=== PATIENT | male | born 1950 | race Caucasian/White ===

== ENCOUNTER 2017-04-18 18:10 | Inpatient (IN) ==
[2017-04-18] MEDS ORDERED: Furosemide 40 MG/4 ML VIAL IVP ONE (18:33)
--- NOTE | 2017-04-18 18:36 | Emergency Department Note ---
Disposition Clinical Impression: CHF (congestive heart failure) Qualifiers: Congestive heart failure type: unspecified congestive heart failure type Congestive heart failure chronicity: acute Qualified Code(s): I50.9 - Heart failure, unspecified Atrial fibrillation Qualifiers: Atrial fibrillation type: chronic Qualified Code(s): I48.2 - Chronic atrial fibrillation Disposition: Admitted As Inpatient Condition: Fair [facility]errals: [facility] [Primary Care Provider] - Forms: ED Satisfaction Letter Time of Disposition: 19:43 SOB HPI - General Chief Complaint: ED Arrhythmia/Palpitations Stated Complaint: afib Time Seen by Provider: 04/18/17 18:17 Source: EMS Mode of arrival: EMS Limitations: no limitations Nursing Notes Reviewed: Yes Vital Signs Reviewed: Yes - History of Present Illness 66-year-old male with a history of CHF and A. fib comes in from the [facility] with increasing shortness of breath. States he feels like his CHF is worsen. Patient was seen at the [facility] troponin was negative his BNP was elevated they do not send results for chest x-ray. Pt Subjective Complaint: shortness of breath Onset (ago): hour(s) Severity: moderate Consistency/Duration: constant Improves with: nothing Worsens with: exertion Known history of: congestive heart failure Associated symptoms: Denies: chest pain Treatment prior to arrival: oxygen - Related Data Home Medications Medication Instructions Recorded Confirmed Omeprazole [PriLOSEC] 20 mg PO BID #0 02/15/15 04/18/17 Clopidogrel [Plavix] 75 mg PO QAM 03/01/15 04/18/17 Insulin ASPART [NovoLOG] 22 unit SQ TIDAC 03/01/15 04/18/17 Insulin Glargine,Hum.rec.anlog 55 unit SQ BID 03/01/15 04/18/17 [Lantus Solostar] Nitroglycerin [Nitrostat] 0.4 mg SL AD PRN 03/01/15 04/18/17 Albuterol Sulfate [Albuterol 2 puff IH QID PRN 01/26/16 04/18/17 Inhaler] Dextrose [Glucose] 12 gm PO DAILY PRN 01/26/16 04/18/17 Fluticasone Propionate Nasal 50 mcg NS DAILY PRN 01/26/16 04/18/17 [Flonase] Gemfibrozil [Lopid] 600 mg PO BID 01/26/16 04/18/17 Lisinopril [Zestril] 10 mg PO BID 01/26/16 04/18/17 Loratadine [Claritin] 10 mg PO DAILY 01/26/16 04/18/17 Metformin HCl [Glucophage] 1,000 mg PO QPM 01/26/16 04/18/17 Metformin HCl [Glucophage] 1,500 mg PO QAM 01/26/16 04/18/17 Metoprolol [Lopressor] 100 mg PO BID 01/26/16 04/18/17 [place]-3 Acid Ethyl Esters [Lovaza] 1 gm PO DAILY 01/26/16 04/18/17 Potassium Chloride [K-Tab ER] 10 meq PO DAILY 01/26/16 04/18/17 Sodium Chloride [Rhinaris] 2 spray NS TID PRN 01/26/16 04/18/17 Budesonide/Formoterol 160/4.5 2 puff IH BID 04/18/17 04/18/17 [Symbicort 160/4.5] Bumetanide [Bumex] 1 mg PO DAILY 04/18/17 04/18/17 Spironolactone [Aldactone] 50 mg PO DAILY 04/18/17 04/18/17 Previous Rx's Medication Instructions Recorded Albuterol Neb [AccuNeb] 1.25 mg IH Q4H PRN 30 Days inhsol 01/29/16 Allergies Allergy/AdvReac Type Severity Reaction Status Date / Time acetaminophen Allergy See Verified 02/15/15 01:08 [From Tylenol-Codeine] Comments codeine Allergy See Verified 02/15/15 01:08 [From Tylenol-Codeine] Comments iodine Allergy Vomiting Verified 02/15/15 01:08 Nortriptyline Allergy See Verified 02/15/15 01:08 Comments shellfish derived Allergy Vomiting Verified 02/15/15 01:08 Constitutional: Denies: fever, chills, weakness, weight change Eyes: Denies: eye pain, eye discharge, vision change ENT ED: Denies: ear pain, throat pain, dental pain, hearing loss, epistaxis, congestion, dysphagia Cardiovascular: Denies: chest pain, palpitations, dyspnea on exertion, edema, syncope Respiratory: Reports: dyspnea. Denies: cough, wheezes, hemoptysis, stridor Gastrointestinal: Denies: abdominal pain, nausea, vomiting, diarrhea, constipation, hematemesis, melena, hematochezia Genitourinary: Denies: urgency, dysuria, frequency, hematuria Musculoskeletal: Denies: back pain, neck pain, arthralgia, myalgia Integumentary: Denies: rash, abrasion, lesions Neurological: Denies: headache, weakness, numbness, paresthesias, confusion, abnormal gait, vertigo Psychiatric: Denies: anxiety, depression, suicidal thoughts, homicidal thoughts , auditory hallucinations, visual hallucinations Endocrine: Denies: fatigue Hematological/Lymphatic: Denies: easy bleeding, easy bruising Allergic/Immunologic: Denies: facial swelling, urticaria Past Medical History - Past Medical History Medical history: Reports: atrial fibrillation, CHF, COPD, coronary artery disease, DVT, diabetes, GERD, hyperlipidemia, hypertension, myocardial infarction Surgical history: Reports: coronary bypass (CABG), other Psychiatric history: Reports: PTSD - Social History Smoking Status: Current some day smoker Smokeless Tobacco Status: No Alcohol use: Reports: none Drug use: Reports: none Physical Exam - General Limitations: no limitations General appearance: alert - Head Head exam: atraumatic, normocephalic, normal inspection - Eye Eye exam: Present: normal appearance, PERRL, EOMI - ENT ENT exam: normal exam, normal oropharynx, mucous membranes moist - Neck Neck exam: Present: normal inspection, full ROM, trachea midline - Chest Chest inspection: Present: normal inspection, symmetric chest wall rise - Respiratory Respiratory exam: Present: prolonged expiratory phase - Cardiovascular Cardiovascular exam: Present: regular rate, normal rhythm, normal heart sounds - Abdominal Exam Abdominal exam: Present: soft, Non-Tender. Absent: tenderness, distention, guarding, rebound, rigidity - Extremities Exam Extremities exam: Present: normal inspection, full ROM. Absent: tenderness, pedal edema - Expanded Lower Extremity Exam Neurovascular/Tendon exam: Absent: motor deficit, sensory deficit, tendon deficit Gait: observed and normal - Back Exam Back exam: Present: normal inspection, full ROM. Absent: tenderness - Neurological Exam Neurological exam: Present: alert, oriented X3 - Psychiatric Psychiatric exam: Present: normal affect, normal mood - Skin Skin exam: Present: warm, dry, intact, normal color Course - Reevaluation(s) Reevaluation #1: 66-year-old with history CHF comes in with increasing weight shortness of breath consistent with his previous CHF. Also has a history of A. fib. Workup at the [facility] showed a normal troponin and elevated BNP. Patient was given Lasix and will be admitted for further evaluation and treatment. Time: 19:41 - Consultations Consultation #1: Discussed with , admit. Time: 19:43 Vital Signs Temperature 97.8 F 04/18/17 18:16 Pulse Rate 110 04/18/17 18:16 Respiratory Rate 11 04/18/17 18:16 Blood Pressure 136/93 04/18/17 18:16 O2 Sat by Pulse Oximetry 97 04/18/17 18:16 Temperature 97.8 F 04/18/17 18:16 Pulse Rate 110 04/18/17 18:16 Respiratory Rate 11 04/18/17 18:16 Blood Pressure 136/93 04/18/17 18:16 O2 Sat by Pulse Oximetry 97 04/18/17 18:16 Oxygen Delivery Oxygen Delivery Room Air Shortness of Breath/Dyspnea - EKG Data EKG attestation: Yes I reviewed and interpreted this EKG. Rate: Reports: tachycardia Rhythm: Reports: A.Fib Interpretation: Reports: no acute changes
[2017-04-18] MEDS ORDERED: *HR* Dextrose 50 % in Water (Syg) 50 ML SYRINGE IVP PRN (22:27)
[2017-04-18] MEDS ORDERED: D5% in Water 1,000 ML IVC PRN (22:27)
[2017-04-18] MEDS ORDERED: Dextrose Gel 15 GM PO PRN ×2 (22:27)
[2017-04-18] MEDS ORDERED: Insulin DETEMIR 100 UNIT/ML X5UNITS SQ SCH (22:30)
[2017-04-18] MEDS ORDERED: *HR* Metoprolol 5 MG/5 ML VIAL IVP ONE (23:03)
[2017-04-18] MEDS ORDERED: *HR* Morphine 2 MG/ML SYRINGE IVP PRN (23:36)
[2017-04-18] MEDS ORDERED: Naloxone 0.4 MG/ML INJ IVP PRN (23:36)
[2017-04-18] MEDS ORDERED: Nitroglycerin 0.4 MG TAB.SUBL SL PRN (23:41)
[2017-04-18] MEDS ORDERED: Fluticasone Propionate Nasal 50 MCG/SPRAY BOTTLE NS PRN (23:41)
[2017-04-18] MEDS ORDERED: Albuterol Neb 1.25 MG/3 ML VIAL IH PRN (23:41)
--- NOTE | 2017-04-19 00:04 | Internal Med History&Physical ---
Date of Encounter: 04/18/17 Time of Encounter: 22:45 Assessment and Plan (1) Chest pain Current visit: No Status: Acute 1. Symptoms are vague but very similar to his presentation last month leading to PCI/stents. 2. Will cycle troponins, EKG's, and order ECHO. 3. Will try to obtain old records. 4. Consult cardiology per his request and also for assistance in managing atrial fibrillation. Qualifiers: Chest pain type: chest pain due to myocardial ischemia Ischemic chest pain type: stable angina pectoris Qualified Code(s): I20.8 - Other forms of angina pectoris (2) CHF (congestive heart failure) Current visit: Yes Status: Chronic 1. Patient does not appear to be fluid overloaded presently. 2. He received IV lasix in ER. 3. Will continue home meds and monitor I/O, daily weights. 4. Monitor clinical status and adjust medications accordingly. Qualifiers: Congestive heart failure type: systolic Congestive heart failure chronicity : chronic Qualified Code(s): I50.22 - Chronic systolic (congestive) heart failure (3) Diabetes Current visit: No Status: Chronic 1. Will resume home basal insulin dose and SSI. 2. Hold Metformin. 3. Monitor glucose and adjust insulin accordingly. Qualifiers: Diabetes mellitus type: type 2 Diabetes mellitus complication status: without complication Diabetes mellitus longterm insulin use: with assistant terminal manager use Qualified Code(s): E11.9 - Type 2 diabetes mellitus without complications ; Z79.4 - senior living (current) use of insulin (4) Atrial fibrillation with rapid ventricular response Current visit: No Status: Resolved 1. IV Lopressor given upon my assessment. 2. Resume home meds this evening. 3. Monitor HR and consider starting Cardizem drip if HR does not improve with above measures. 4. Will order metabolic panel, cycle troponins, and EKG's. 5. Check TSH. (5) DVT prophylaxis Current visit: No Status: Acute 1. Heparin SQ. Internal Medicine - H&P: HPI Chief complaint: SOB, palpitations, chest tightness Admitted From: Emergency Dept History of present illness: Mr. Medel is a 66 year old male who presented in transfer from the [facility] to our ER. He presented to the [place] urgent care with complaints of chest tightness, shortness of breath, weight gain, and palpitations. He was felt to be in congestive heart failure and he was subsequently transferred to our ER for further workup and care. Labs were drawn at the [place], but I am unable to find and locate his lab results. He had minimal workup and treatment in our ER and was admitted to hospitalist service. Chest x-ray was obtained in the ER, which was negative for any acute findings. He was given a dose of Lasix in the ER and sent to the floor. Upon my assessment patient on the floor, patient is tachycardic with a heart rate of 110 - 130's and appears to be in atrial fibrillation. He complains of some vague chest tightness but mostly shortness of breath. He notes weight gain over the last 2 weeks. He denies any fevers, cough, nausea, vomiting, or diarrhea. He informs me that he was just hospitalized roughly 1 month ago at [facility] in [place], [place], and he underwent PCI with stents. His symptoms today are similar to those he had last month when he was hospitalized at [facility]. Past Med Surg Social Fam HX - Past Medical History Attestation: Yes The following information was validated with the patient. Source: patient, old records reviewed Medical history: atrial fibrillation, CHF, COPD, coronary artery disease, DVT, diabetes, GERD, hyperlipidemia, hypertension, myocardial infarction Psychiatric history: anxiety, PTSD - Past Surgical History Surgical History: coronary bypass (CABG), other - Social History Smoking Status: Current some day smoker Smokeless Tobacco Status: No Alcohol use: none Drug use: none Current living situation: Home, With Family Activity Level: Independent ambulation Recent Out of Country Travel Within the Last 8 Weeks: No - Family History Mother Adopted: [place]: [place] Family Member Ethnicity: Non- Twin of Family Member: Yes Living Status: Age at : 33 Cause of : brain anureysm Hx Family Cardiac Disorders: No Hx Family Respiratory Disorders: No Hx Family Cancer: Yes Hx Family GI Disorders: No Hx Family Endocrine Disorder: No Hx Family Neuromuscular Disorders: No Hx Family Neurologic Disorders: No Hx Family HEENT Disorders: Yes Hx Family Autoimmune Disorders: No Internal Medicine - H&P: Meds Omeprazole [PriLOSEC] 20 mg PO BID #0 02/15/15 [History] Clopidogrel [Plavix] 75 mg PO QAM 03/01/15 [History] Insulin ASPART [NovoLOG] 22 unit SQ TIDAC 03/01/15 [History] Insulin Glargine,Hum.rec.anlog [Lantus Solostar] 55 unit SQ BID 03/01/15 [ History] Nitroglycerin [Nitrostat] 0.4 mg SL AD PRN 03/01/15 [History] Albuterol Sulfate [Albuterol Inhaler] 2 puff IH QID PRN 01/26/16 [History] Dextrose [Glucose] 12 gm PO DAILY PRN 01/26/16 [History] Fluticasone Propionate Nasal [Flonase] 50 mcg NS DAILY PRN 01/26/16 [History] Gemfibrozil [Lopid] 600 mg PO BID 01/26/16 [History] Lisinopril [Zestril] 10 mg PO BID 01/26/16 [History] Loratadine [Claritin] 10 mg PO DAILY 01/26/16 [History] Metformin HCl [Glucophage] 1,000 mg PO QPM 01/26/16 [History] Metformin HCl [Glucophage] 1,500 mg PO QAM 01/26/16 [History] Metoprolol [Lopressor] 100 mg PO BID 01/26/16 [History] [place]-3 Acid Ethyl Esters [Lovaza] 1 gm PO DAILY 01/26/16 [History] Potassium Chloride [K-Tab ER] 10 meq PO DAILY 01/26/16 [History] Sodium Chloride [Rhinaris] 2 spray NS TID PRN 01/26/16 [History] Albuterol Neb [AccuNeb] 1.25 mg IH Q4H PRN 30 Days inhsol 01/29/16 [Rx] Budesonide/Formoterol 160/4.5 [Symbicort 160/4.5] 2 puff IH BID 04/18/17 [ History] Bumetanide [Bumex] 1 mg PO DAILY 04/18/17 [History] Spironolactone [Aldactone] 50 mg PO DAILY 04/18/17 [History] 3 Allergy/AdvReac Type Severity Reaction Status Date / Time acetaminophen Allergy See Verified 02/15/15 01:08 [From Tylenol-Codeine] Comments codeine Allergy See Verified 02/15/15 01:08 [From Tylenol-Codeine] Comments iodine Allergy Vomiting Verified 02/15/15 01:08 Nortriptyline Allergy See Verified 02/15/15 01:08 Comments shellfish derived Allergy Vomiting Verified 02/15/15 01:08 - Constitutional Constitutional: weakness, weight gain, no chills, no fever(s) - EENT Eyes: no blurry vision, no change in vision Ears: no ear pain, no tinnitus Nose, mouth and throat: no nasal congestion, no sinus pain, no sinus pressure - Cardiovascular Cardiovascular ROS IM: chest pain (tightness), dyspnea, dyspnea on exertion, edema, orthopnea, palpitations, paroxysmal nocturnal dyspnea, no lightheadedness , no syncope - Respiratory Respiratory: dyspnea, dyspnea on exertion, no cough, no hemoptysis, no chest congestion, no excessive phlegm production, no change in phlegm color - Gastrointestinal Gastrointestinal: bloating, no abdominal pain, no diarrhea, no hematemesis, no hematochezia, no melena, no nausea, no vomiting - Genitourinary Genitourinary ROS male: no dysuria, no flank pain, no hematuria - Musculoskeletal Musculoskeletal ROS IM: no arthralgias, no back pain - Integumentary Integumentary IM: no rash, no jaundice - Neurological Neurological ROS: no dizziness, no focal weakness, no frequent falls, no headache(s) - Psychiatric Psychiatric: no anxiety, no depression - Endocrine Endocrine IM: no cold intolerance, no heat intolerance, no polydipsia, no polyuria - Hematologic/Lymphatic Hematologic/Lymphatic: no lymphadenopathy - Allergic/Immunologic Allergic/Immunologic: no wheezing, no GI upset with certain foods - Constitutional Vitals: Temp Pulse Resp BP Pulse Ox 97.8 F 93 16 119/70 97 04/18/17 23:30 04/18/17 23:30 04/18/17 23:30 04/18/17 23:30 04/18/17 23:30 General appearance: Present: cooperative, mild distress, A&O X 3, pleasant, answers questions appropriately - Head Head exam: Present: atraumatic, normal inspection - Eye Eye exam: Present: EOMI, normal appearance, PERRL. Absent: scleral icterus Pupils: Present: normal accommodation - ENT ENT exam: Present: mucous membranes moist, normal exam, normal oropharynx - Neck Neck exam general surgery: Present: full ROM, supple. Absent: tenderness, nuchal rigidity - Expanded Neck Exam Neck exam: Absent: carotid bruit - Respiratory Respiratory exam: Present: rhonchi. Absent: accessory muscle use, chest wall tenderness, rales, respiratory distress, wheezes - Cardiovascular Cardiovascular exam: Present: irregular rhythm, +S1, +S2, tachycardia. Absent: diastolic murmur, JVD, systolic murmur - GI/Abdominal GI/Abdominal exam: Present: normal bowel sounds, soft. Absent: guarding, hepatomegaly, mass, splenomegaly, tenderness - Extremities Exam Extremities exam: Present: full ROM, pedal edema (trace), warm. Absent: calf tenderness, joint swelling, tenderness Additional comments: venous stasis changes - Back Exam Back exam: Absent: CVA tenderness (L), CVA tenderness (R) - Neurological Exam Neurological exam: Present: alert, CN II-XII intact, oriented X3, no focal deficits - Psychiatric Psychiatric exam: Present: normal affect, normal mood - Skin Skin exam: Present: dry, warm. Absent: rash Internal Med - H&P Results - EKG Data -: EKG Interpreted by Myself - EKG Data Prior EKG available for review: no EKG comments: 04/19/17 00:10 atrial fibrillation w RVR - Diagnostic Studies Chest x-ray Status: image reviewed by me (negative; cardiomegaly)
[2017-04-19 01:03] LABS: Basophils # 0.1 K/mcL (0.0-0.2); Basophils % 0.5 %; Eosinophils # 0.1 K/mcL (0.0-0.6); Eosinophils % 0.6 %; Hematocrit 41.7 % (37.5-50.1); Hemoglobin 13.9 g/dL (12.9-16.9); Immature Granulocytes % 2.1 % (0-4); Lymphocytes # 2.6 K/mcL (0.6-4.6); Lymphocytes % 20.3 %; Mean Corpuscular HGB Conc 33.3 g/dL (31.6-35.5); Mean Corpuscular Hemoglobin 31.7 pg (28.0-33.3); Mean Platelet Volume 9.3 fL (9.4-12.4); Monocytes % 7.7 %; Neutrophils # 8.9 K/mcL (1.6-8.9); Platelet Count 188 K/mcL (140-400); Red Blood Count 4.39 M/mcL (4.19-5.50); Red Cell Distribution Width 14.7 % (11.5-14.5); Segmented Neutrophils % 68.8 %
[2017-04-19 01:07] LABS: INR 1.2; Prothrombin Time 12.6 Seconds (9.4-12.1)
[2017-04-19 01:09] LABS: Activated Partial Thrombo Time 26.5 Seconds (26.0-36.0)
[2017-04-19 01:14] LABS: Alanine Aminotransferase 16 Units/L (0-55); Albumin 2.8 g/dL (3.5-5.0); Albumin/Globulin Ratio 0.7 (1.1-2.2); Alkaline Phosphatase 61 Units/L (38-126); Aspartate Amino Transferase 13 Units/L (5-34); BUN/Creatinine Ratio 16 (6-26); Bilirubin,Total 0.5 mg/dL (0.2-1.2); Blood Urea Nitrogen 18 mg/dL (8-26); Calcium 9.4 mg/dL (8.6-10.8); Carbon Dioxide 27 mEq/L (19-29); Chloride 97 mEq/L (98-109); Globulin 3.8 g/dL (2.4-3.5); Glucose 261 mg/dL (70-99); Magnesium 1.6 mg/dL (1.6-2.6); Osmolality,Calculated 291 (280-300); Potassium 4.5 mEq/L (3.5-4.5); Sodium 135 mEq/L (136-145); Total Protein 6.6 g/dL (6.0-8.3); eGFR For African Americans > 60 (> 60); eGFR For Non-African Americans > 60 (> 60)
[2017-04-19 01:35] LABS: Thyroid Stimulating Hormone 0.726 mcIU/mL (0.350-4.840)
[2017-04-19] MEDS: Metoprolol 100 MG TABLET PO SCH ×3 (02:05→21:47)
[2017-04-19] MEDS ORDERED: Acetaminophen 325 MG TABLET PO PRN (02:27)
[2017-04-19] MEDS ORDERED: Magnesium Sulfate 2 GM in D5% in Water 100 ML IVPB ONE (02:51)
[2017-04-19] MEDS: *HR* Heparin 5,000 UNIT/ML VIAL SQ SCH ×2 (06:07→16:06)
[2017-04-19] MEDS ORDERED: Perflutren Lipid Microsphere 1.3 ML in 0.9 % Sodium Chloride 8.7 ML IVP ONE (07:55)
[2017-04-19] MEDS: Insulin LISPRO 300 UNITS/3 ML VIAL SQ SCH ×6 (08:26→16:05)
[2017-04-19] MEDS: Loratadine 10 MG TABLET PO SCH (08:27)
[2017-04-19] MEDS: Spironolactone 25 MG TABLET PO SCH (08:28)
[2017-04-19] MEDS: Aspirin 81 MG TAB.CHEW PO SCH (08:28)
[2017-04-19] MEDS: LOVAZA 1GM PO SCH (08:30)
[2017-04-19] MEDS: Insulin DETEMIR 100 UNIT/ML X5UNITS SQ SCH ×2 (08:31→22:10)
[2017-04-19] MEDS ORDERED: Bumetanide 1 MG TABLET PO SCH (09:00)
--- NOTE | 2017-04-19 09:19 | Internal Med Progress Note ---
Date of Encounter: 04/19/17 Time of Encounter: 09:17 - Assessment and plan (1) COPD (chronic obstructive pulmonary disease) Current Visit: Yes Status: Acute Assessment and plan: patient some rhonchi and wheezing add duoneb Qualifiers: COPD type: emphysema Emphysema type: unspecified Qualified Code(s): J43.9 - Emphysema, unspecified (2) Chest pain Current Visit: No Status: Acute Assessment and plan: resolved troponin negative Qualifiers: Chest pain type: chest pain due to myocardial ischemia Ischemic chest pain type: stable angina pectoris Qualified Code(s): I20.8 - Other forms of angina pectoris (3) Atrial fibrillation Current Visit: Yes Status: Acute Assessment and plan: Not chronic, rate is well controlled Qualifiers: Atrial fibrillation type: chronic Qualified Code(s): I48.2 - Chronic atrial fibrillation (4) Hx of CABG Current Visit: No Status: Acute Assessment and plan: CABG 4 vessel presented 6 with a recent angioplasty to stent detail is not available yet (5) CHF (congestive heart failure) Current Visit: Yes Status: Chronic Assessment and plan: Acute on chronic systolic heart failure still has about 2-3+ pitting edema in lower extremities echo EF to be about 30-35% Qualifiers: Congestive heart failure type: systolic Congestive heart failure chronicity : chronic Qualified Code(s): I50.22 - Chronic systolic (congestive) heart failure (6) Diabetes Current Visit: No Status: Chronic Assessment and plan: chronic continue sliding scale Qualifiers: Diabetes mellitus type: type 2 Diabetes mellitus complication status: without complication Diabetes mellitus intermodal dispatcher insulin use: with chcf use Qualified Code(s): E11.9 - Type 2 diabetes mellitus without complications ; Z79.4 - termination clerk (current) use of insulin (7) Ischemic cardiomyopathy Current Visit: No Status: Acute Assessment and plan: moderate to severe cmp with decompensation (8) HLD (hyperlipidemia) Current Visit: No Status: Chronic Assessment and plan: continue home meds Qualifiers: Hyperlipidemia type: pure hypercholesterolemia Qualified Code(s): E78.00 - Pure hypercholesterolemia, unspecified; E78.0 - Pure hypercholesterolemia - Subjective Interval history: Patient with history of CABG 2005, had a angioplasty 2 stentst put in at the [facility] about 2 months ago. Also a history of congestive heart failure, diabetes, chronic atrial fib fibrillation, patient was admitted from [facility] due to chest pain described as tightness and shortness of breath and palpitation and found to be in a rapid ventricular with RVR and congestive heart failure. He says chest pain-free troponin is negative - Constitutional Vitals: Temp Pulse Resp BP Pulse Ox 97.9 F 70 15 110/72 97 04/19/17 06:31 04/19/17 06:31 04/19/17 06:31 04/19/17 06:31 04/19/17 06:31 General appearance: Present: cooperative, mild distress, A&O X 3, pleasant, answers questions appropriately - Head Head exam: Present: atraumatic, normocephalic - Eye Eye exam: Present: PERRL, conjuntiva pink, sclera anicteric Pupils: Present: PERRL - Respiratory Respiratory exam: Present: rhonchi, wheezes - Cardiovascular Cardiovascular exam: Present: irregular rhythm, +S1, +S2, systolic murmur - GI/Abdominal GI/Abdominal exam: Present: normal bowel sounds, soft, no peritoneal signs. Absent: distended, tenderness - Extremities Exam Extremities exam: Present: pedal edema Internal Medicine: Result - Labs CBC & Chem 7: 04/19/17 00:48 04/19/17 00:48 Labs: Short CBC 04/19/17 Range/Units 00:48 WBC 12.9 H (4.3-11.1) K/mcL Hgb 13.9 (12.9-16.9) g/dL Hct 41.7 (37.5-50.1) % Plt Count 188 (140-400) K/mcL Neutrophils # 8.9 (1.6-8.9) K/mcL BMP 04/19/17 00:48 Sodium 135 L Potassium 4.5 Chloride 97 L Carbon Dioxide 27 BUN 18 Creatinine 1.14 Glucose 261 H Calcium 9.4 Cardiac Enzymes 04/19/17 04/19/17 Range/Units 00:48 06:23 Troponin I 0.01 0.01 (0-0.03) ng/mL Liver Function 04/19/17 Range/Units 00:48 Total Bilirubin 0.5 (0.2-1.2) mg/dL AST 13 (5-34) Units/L ALT 16 (0-55) Units/L Alkaline Phosphatase 61 (38-126) Units/L Albumin 2.8 L (3.5-5.0) g/dL - ABG Interpretation ABG results: PT/INR, D-dimer PT 12.6 Seconds (9.4-12.1) H 04/19/17 00:48 Consult Discharge Plan - Plan [facility]errals: [facility] [Primary Care Provider] -
[2017-04-19] MEDS: Budesonide/Formoterol 160/4.5 MDI IH SCH ×2 (09:59→20:11)
--- NOTE | 2017-04-19 10:52 | Cardiology Consult Note ---
Date of Encounter: 04/19/17 Time of Encounter: 09:00 Assessment and Plan (1) Chest pain Current Visit: No Status: Acute C/o chest tightness with laying flat. Likely respiratory related. Mild fluid overload on exam. No acute finding on CXR. Known ischemic cardiomyopathy with EF 30-35%. Troponin negative. EKG shows atrial fibrillation with no acute chages. TTE pending. Continue optimizing medical therapy. Noted to have statin allergy. Continue asa , plavix, statin, and bb. Add imdur. Continue IV diuresis. Qualifiers: Chest pain type: chest pain due to myocardial ischemia Ischemic chest pain type: stable angina pectoris Qualified Code(s): I20.8 - Other forms of angina pectoris (2) Atrial fibrillation Current Visit: Yes Status: Chronic Appears to be rate controlled . Continue Lopressor. [facility] finding on brain MRI. Per patient he is scheduled to have repeat MRI of the head. Recommend follow Qualifiers: Atrial fibrillation type: permanent Qualified Code(s): I48.2 - Chronic atrial fibrillation (3) Ischemic cardiomyopathy Current Visit: No Status: Acute (4) CAD (coronary artery disease) Current Visit: No Status: Chronic H/o CABG in 2005 and multiple PCI. Recent GA and stent one month ago. Records ordered. Continue DAPT uninterrupted for minimum of one year. Qualifiers: Coronary Disease-Associated Artery/Lesion type: bypass graft, autologous vein Associated angina: without angina Qualified Code(s): I25.810 - Atherosclerosis of coronary artery bypass graft(s) without angina pectoris Discussion w patient/family: The assessment and plan as outlined above was discussed with the patient and/or family members who expressed understanding and agreement. All questions were answered. Thank you for involving us in the care of your patient. Please call with any questions. History of Present Illness Consult date: 04/19/17 Requesting physician: Contreras Rabago Consult reason: Chest pain Chief complaint: SOB and edema, chest tightness History of present illness: Mr. Medel is a 66 year old male who presented with increasing SOB, BLE edema, and chest tightness when he lays flat. Symptoms increased over past two days. He reports having similar symptoms one month ago and was found to have an GA and received two cardiac stents. [facility] completed at [facility]. He has a history of atrial fibrillation, CABG in 2005, multiple PCI, DM, valvular heart disease, and systolic CHF EF 30-35%, and COPD. He says he was taken off pradaxa due to a blockage in [facility] the [facility]. He denies missing any medications. Cardiology consulted due to recent GA and stents. Cardiac work-up shows negative troponin. EKG shows atrial fibrillation with HR 100 BPM. He is currently rate controlled on his home medications. CXR shows no acute finding. He reports his BLE edema has improved. Past Med Surg Social Fam HX - Past Medical History Attestation: Yes The following information was validated with the patient. Medical history: atrial fibrillation, CHF, COPD, coronary artery disease, DVT, diabetes, GERD, hyperlipidemia, hypertension, myocardial infarction Psychiatric history: anxiety, PTSD - Past Surgical History Surgical History: coronary bypass (CABG), other - Social History Smoking Status: Current some day smoker Smokeless Tobacco Status: No Alcohol use: none Drug use: none - Family History Mother Adopted: [place]: [place] Family Member Ethnicity: Non- Twin of Family Member: Yes Living Status: Age at : 33 Cause of : brain anureysm Hx Family Cardiac Disorders: No Hx Family Respiratory Disorders: No Hx Family Cancer: Yes Hx Family GI Disorders: No Hx Family Endocrine Disorder: No Hx Family Neuromuscular Disorders: No Hx Family Neurologic Disorders: No Hx Family HEENT Disorders: Yes Hx Family Autoimmune Disorders: No Medications and Allergies Omeprazole [PriLOSEC] 20 mg PO BID #0 02/15/15 [History] Clopidogrel [Plavix] 75 mg PO QAM 03/01/15 [History] Insulin ASPART [NovoLOG] 22 unit SQ TIDAC 03/01/15 [History] Insulin Glargine,Hum.rec.anlog [Lantus Solostar] 55 unit SQ BID 03/01/15 [ History] Nitroglycerin [Nitrostat] 0.4 mg SL AD PRN 03/01/15 [History] Albuterol Sulfate [Albuterol Inhaler] 2 puff IH QID PRN 01/26/16 [History] Dextrose [Glucose] 12 gm PO DAILY PRN 01/26/16 [History] Fluticasone Propionate Nasal [Flonase] 50 mcg NS DAILY PRN 01/26/16 [History] Gemfibrozil [Lopid] 600 mg PO BID 01/26/16 [History] Lisinopril [Zestril] 10 mg PO BID 01/26/16 [History] Loratadine [Claritin] 10 mg PO DAILY 01/26/16 [History] Metformin HCl [Glucophage] 1,000 mg PO QPM 01/26/16 [History] Metformin HCl [Glucophage] 1,500 mg PO QAM 01/26/16 [History] Metoprolol [Lopressor] 100 mg PO BID 01/26/16 [History] Coats-3 Acid Ethyl Esters [Lovaza] 1 gm PO DAILY 01/26/16 [History] Potassium Chloride [K-Tab ER] 10 meq PO DAILY 01/26/16 [History] Sodium Chloride [Rhinaris] 2 spray NS TID PRN 01/26/16 [History] Albuterol Neb [AccuNeb] 1.25 mg IH Q4H PRN 30 Days inhsol 01/29/16 [Rx] Budesonide/Formoterol 160/4.5 [Symbicort 160/4.5] 2 puff IH BID 04/18/17 [ History] Bumetanide [Bumex] 1 mg PO DAILY 04/18/17 [History] Spironolactone [Aldactone] 50 mg PO DAILY 04/18/17 [History] 3 Allergy/AdvReac Type Severity Reaction Status Date / Time acetaminophen Allergy See Verified 02/15/15 01:08 [From Tylenol-Codeine] Comments codeine Allergy See Verified 02/15/15 01:08 [From Tylenol-Codeine] Comments iodine Allergy Vomiting Verified 02/15/15 01:08 Nortriptyline Allergy See Verified 02/15/15 01:08 Comments shellfish derived Allergy Vomiting Verified 02/15/15 01:08 All Systems Review: A 10-system review of systems was performed and is negative for pertinent findings except as documented above in the HPI. Physical Examination Vital Signs Temp Pulse Resp BP Pulse Ox 04/19/17 06:31 97.9 F 70 15 110/72 97 04/19/17 05:00 97.8 F 78 17 103/67 97 04/18/17 23:30 97.8 F 93 16 119/70 97 04/18/17 21:10 98.2 F 67 17 104/68 95 04/18/17 20:44 21 138/84 04/18/17 18:16 97.8 F 110 11 136/93 97 Intake and Output 04/18/17 04/19/17 04/19/17 23:59 07:59 15:59 Intake Total 937 / 937 700 / 700 240 / 240 Output Total 0 / 0 350 / 350 Balance 937 / 937 350 / 350 240 / 240 Intake: Oral 937 / 937 700 / 700 240 / 240 Output: Urine 0 / 0 350 / 350 Other: Percent of Meal Consumed 100% Weight 96.8 kg Blood Glucose* 324 114 General: Conversant, No Apparent Distress HEENT: Atraumatic, Normocephaly, Mucus Membranes Moist Neck: No JVD, Normal carotid pulses Cardiac: Other (Irregularly irregular) Lungs: Normal Breath Sounds, No Wheeze, Rales, Rhonchi Neuro: Alert and responsive, No focal deficits noted Abdomen: Soft, Non-Tender Skin: No rashes noted on visualized skin Musculoskeletal: No Chest Wall Tenderness Extremities: No Clubbing, No Cyanosis, No Edema, Normal Pulses Results 04/19/17 00:48 04/19/17 00:48 Lab Results 04/19/17 04/19/17 04/19/17 00:48 00:48 00:48 WBC 12.9 H Hgb 13.9 Hct 41.7 Plt Count 188 INR 1.2 APTT 26.5 Sodium 135 L Potassium 4.5 Chloride 97 L Carbon Dioxide 27 BUN 18 Creatinine 1.14 Glucose 261 H Calcium 9.4 Magnesium 1.6 Total Bilirubin 0.5 AST 13 ALT 16 Alkaline Phosphatase 61 Troponin I B-Natriuretic Peptide TSH 0.726 04/19/17 04/19/17 04/19/17 00:48 00:48 06:23 WBC Hgb Hct Plt Count INR APTT Sodium Potassium Chloride Carbon Dioxide BUN Creatinine Glucose Calcium Magnesium Total Bilirubin AST ALT Alkaline Phosphatase Troponin I 0.01 0.01 B-Natriuretic Peptide 114 H TSH - Imaging and Cardiology Echo: pending - EKG Interpretation EKG results cardiology: personally reviewed Consult Discharge Plan - Plan [facility]errals: [facility] [Primary Care Provider] -
[2017-04-19] MEDS: Isosorbide MONOnitrate (24 HR) 30 MG TAB.ER.24H PO SCH (11:57)
[2017-04-19] MEDS: Pregabalin 50 MG CAPSULE PO SCH ×2 (17:31→21:47)
[2017-04-19] MEDS: Methocarbamol 750 MG TABLET PO SCH ×2 (17:31→22:04)
[2017-04-19] MEDS: Furosemide 40 MG in 0.9 % Sodium Chloride 50 ML IVPB SCH (21:47)
[2017-04-19] MEDS ORDERED: traZODone 50 MG TABLET PO ONE (22:20)
[2017-04-20] MEDS: Methocarbamol 750 MG TABLET PO SCH ×4 (00:17→17:39)
[2017-04-20] MEDS: *HR* Heparin 5,000 UNIT/ML VIAL SQ SCH ×2 (06:32→17:39)
[2017-04-20] MEDS: LOVAZA 1GM PO SCH (07:50)
[2017-04-20] MEDS: Insulin LISPRO 300 UNITS/3 ML VIAL SQ SCH ×6 (07:50→16:03)
[2017-04-20] MEDS: Isosorbide MONOnitrate (24 HR) 30 MG TAB.ER.24H PO SCH (07:52)
[2017-04-20] MEDS: Loratadine 10 MG TABLET PO SCH (07:52)
[2017-04-20] MEDS: Spironolactone 25 MG TABLET PO SCH (07:52)
[2017-04-20] MEDS: Metoprolol 100 MG TABLET PO SCH ×2 (07:52→21:37)
[2017-04-20] MEDS: Aspirin 81 MG TAB.CHEW PO SCH (07:52)
[2017-04-20] MEDS: Pregabalin 50 MG CAPSULE PO SCH ×3 (07:52→21:37)
[2017-04-20] MEDS: Insulin DETEMIR 100 UNIT/ML X5UNITS SQ SCH ×2 (07:55→21:37)
[2017-04-20] MEDS: Furosemide 40 MG in 0.9 % Sodium Chloride 50 ML IVPB SCH (07:55)
[2017-04-20] MEDS: Budesonide/Formoterol 160/4.5 MDI IH SCH ×2 (08:03→20:25)
--- NOTE | 2017-04-20 10:33 | Internal Med Progress Note ---
Date of Encounter: 04/20/17 Time of Encounter: 10:10 - Assessment and plan (1) CHF (congestive heart failure) Current Visit: Yes Status: Acute Assessment and plan: Continue Lasix. We will transition to oral Lasix tomorrow. Clinically improving but does have pedal edema. Cardiology input appreciated. Qualifiers: Congestive heart failure type: systolic Congestive heart failure chronicity : chronic Qualified Code(s): I50.22 - Chronic systolic (congestive) heart failure (2) Ischemic cardiomyopathy Current Visit: Yes Status: Acute Assessment and plan: Continue treatment with IV Lasix. (3) COPD (chronic obstructive pulmonary disease) Current Visit: Yes Status: Chronic Assessment and plan: Continue bronchodilators. Patient did have wheezing earlier this morning but it is improving. Qualifiers: COPD type: emphysema Emphysema type: unspecified Qualified Code(s): J43.9 - Emphysema, unspecified (4) Chest pain Current Visit: Yes Status: Resolved Assessment and plan: resolved. Continue aspirin, Plavix and metoprolol Qualifiers: Chest pain type: chest pain due to myocardial ischemia Ischemic chest pain type: stable angina pectoris Qualified Code(s): I20.8 - Other forms of angina pectoris (5) DM2 (diabetes mellitus, type 2) Current Visit: Yes Status: Chronic Assessment and plan: Fairly controlled. Continue current insulin regimen Qualifiers: Diabetes mellitus complication status: with circulatory complication Diabetes mellitus complication detail: with other circulatory complications Diabetes mellitus detention insulin use: with local intermodal truck driver use Qualified Code(s) : E11.59 - Type 2 diabetes mellitus with other circulatory complications; Z79.4 - residential (current) use of insulin; Z79.4 - assistant terminal manager (current) use of insulin ; Z79.4 - residential (current) use of insulin; Z79.4 - residential (current) use of insulin (6) HLD (hyperlipidemia) Current Visit: Yes Status: Chronic Assessment and plan: Continue Lopid Qualifiers: Hyperlipidemia type: mixed hyperlipidemia Qualified Code(s): E78.2 - Mixed hyperlipidemia (7) HTN (hypertension) Current Visit: Yes Status: Chronic Assessment and plan: Well-controlled Qualifiers: Hypertension type: essential hypertension Qualified Code(s): I10 - Essential (primary) hypertension (8) Hx of CABG Current Visit: No Status: Chronic Assessment and plan: Continue home medications including aspirin and Plavix and metoprolol (9) DVT prophylaxis Current Visit: No Status: Acute Assessment and plan: With heparin subcutaneous - Subjective Interval history: Patient is doing well overall. He does complain of slightly worsened pedal edema today. Also had some difficulty breathing earlier this morning that responded to bronchodilators. No chest pain at this time. No palpitations. - Constitutional Vitals: Temp Pulse Resp BP Pulse Ox 97.9 F 67 16 100/69 94 04/20/17 07:41 04/20/17 07:41 04/20/17 08:03 04/20/17 07:41 04/20/17 08:03 General appearance: Present: cooperative, mild distress, A&O X 3, pleasant, answers questions appropriately - Neck Neck exam general surgery: Present: supple, trachea midline. Absent: lymphadenopathy - Respiratory Respiratory exam: Present: prolonged expiratory phase, wheezes. Absent: accessory muscle use, rales, rhonchi - Cardiovascular Cardiovascular exam: Present: RRR, +S1, +S2. Absent: diastolic murmur, gallop, rubs, systolic murmur - GI/Abdominal GI/Abdominal exam: Present: normal bowel sounds, soft, no peritoneal signs. Absent: distended, tenderness - Extremities Exam Extremities exam: Present: warm, radial pulses palpable and symmetrical. Absent : calf tenderness, cyanotic, pedal edema - Neurological Exam Neurological exam: Present: alert, CN II-XII intact, oriented X3, no focal deficits. Absent: facial droop, speech deficit - Skin Skin exam: Present: dry, intact Internal Medicine: Result - Labs CBC & Chem 7: 04/19/17 00:48 04/19/17 00:48 Labs: Cardiac Enzymes 04/19/17 Range/Units 11:24 Troponin I 0.02 (0-0.03) ng/mL - ABG Interpretation ABG results: PT/INR, D-dimer PT 12.6 Seconds (9.4-12.1) H 04/19/17 00:48 - Impressions Impressions Echocardiogram 04/19/17 08:54 Impressions: LVEF 55%. Normal LV chamber size, wall thickness and function. Indeterminate diastolic function. Atypical septal motion consistent with post-operative status. Grossly, the right ventricle appeared mildly dilated and hypokinetic. No evidence of pulmonary hypertension. No significant valvular dysfunction. Left Ventricular Wall Motion: Rest Echo Findings All wall segments showed normal motion. Findings: Study Quality * Technically sub-optimal due to poor echocardiographic windows. ECG Findings * Atrial fibrillation. Left Ventricle * LVEF 55%. * Normal LV chamber size, wall thickness and function. * Indeterminate diastolic function. * Atypical septal motion consistent with post-operative status. Right Ventricle * Grossly, the right ventricle appeared mildly dilated and hypokinetic. Left Atrium * Mildly dilated left atrium. Right Atrium * Mildly dilated right atrium. Aortic Valve * Aortic valve not well visualized. * No aortic regurgitation. * No aortic stenosis. Mitral Valve * Mildly thicknened mitral valve leaflets. * Trace mitral regurgitation. * No mitral stenosis. Tricuspid Valve * Normal tricuspid valve structure and function. * Trace tricuspid regurgitation. * No evidence of pulmonary hypertension. Pulmonic Valve * Normal pulmonic valve structure and function. * No pulmonic regurgitation. Aorta * Normally sized aortic root. Pericardium * The pericardium appears normal. IVC * Normal IVC dimensions and inspiratory collapse. Pulmonary Artery * Normal visualized portions of the main pulmonary artery. Consult Discharge Plan - Plan Instructions: Heart Failure (DC), Atrial Fibrillation (DC), Chest Pain (DC), Diabetes Mellitus Type 2 in Adults (DC), Chronic Obstructive Pulmonary Disease ( DC) [facility]errals: [facility] [Primary Care Provider] -
[2017-04-20] MEDS: Furosemide 40 MG/4 ML VIAL IVP SCH (17:39)
[2017-04-21] MEDS: Methocarbamol 750 MG TABLET PO SCH ×2 (00:15→06:27)
[2017-04-21 03:16] LABS: Basophils # 0.1 K/mcL (0.0-0.2); Basophils % 0.6 %; Eosinophils # 0.1 K/mcL (0.0-0.6); Eosinophils % 0.5 %; Hematocrit 41.7 % (37.5-50.1); Hemoglobin 13.7 g/dL (12.9-16.9); Immature Granulocytes % 1.6 % (0-4); Lymphocytes # 2.8 K/mcL (0.6-4.6); Lymphocytes % 21.9 %; Mean Corpuscular HGB Conc 32.9 g/dL (31.6-35.5); Mean Corpuscular Hemoglobin 31.4 pg (28.0-33.3); Mean Corpuscular Volume 95.4 fL (83.0-100.0); Mean Platelet Volume 9.3 fL (9.4-12.4); Neutrophils # 8.5 K/mcL (1.6-8.9); Platelet Count 190 K/mcL (140-400); Red Blood Count 4.37 M/mcL (4.19-5.50); Red Cell Distribution Width 14.6 % (11.5-14.5); Segmented Neutrophils % 67.4 %
[2017-04-21 03:30] LABS: Calcium 9.6 mg/dL (8.6-10.8); Potassium 4.2 mEq/L (3.5-4.5)
[2017-04-21] MEDS: *HR* Heparin 5,000 UNIT/ML VIAL SQ SCH ×3 (06:27→20:15)
[2017-04-21] MEDS: Furosemide 40 MG/4 ML VIAL IVP SCH (08:06)
[2017-04-21] MEDS: Metoprolol 100 MG TABLET PO SCH ×2 (08:07→20:09)
[2017-04-21] MEDS: Isosorbide MONOnitrate (24 HR) 30 MG TAB.ER.24H PO SCH (08:07)
[2017-04-21] MEDS: Spironolactone 25 MG TABLET PO SCH (08:07)
[2017-04-21] MEDS: Pregabalin 50 MG CAPSULE PO SCH ×3 (08:07→20:09)
[2017-04-21] MEDS: Aspirin 81 MG TAB.CHEW PO SCH (08:07)
[2017-04-21] MEDS: Loratadine 10 MG TABLET PO SCH (08:07)
[2017-04-21] MEDS: Insulin LISPRO 300 UNITS/3 ML VIAL SQ SCH ×6 (08:08→17:01)
[2017-04-21] MEDS: Insulin DETEMIR 100 UNIT/ML X5UNITS SQ SCH ×2 (08:14→20:09)
[2017-04-21] MEDS ORDERED: 0.9 % Sodium Chloride 1,000 ML IVC SCH (08:15)
[2017-04-21] MEDS: Budesonide/Formoterol 160/4.5 MDI IH SCH ×2 (10:35→20:15)
[2017-04-21 13:17] LABS: Calcium 9.6 mg/dL (8.6-10.8); Potassium 4.2 mEq/L (3.5-4.5)
--- NOTE | 2017-04-21 14:57 | Internal Med Progress Note ---
Date of Encounter: 04/21/17 Time of Encounter: 14:55 - Assessment and plan (1) CHF (congestive heart failure) Current Visit: Yes Status: Acute Assessment and plan: Clinically improved. Patient does have continued pedal edema. No shortness of breath. Renal function has acutely worsened. We will hold off Lasix today. Gentle hydration. If renal function improves tomorrow, patient can be restarted back on Lasix. Qualifiers: Congestive heart failure type: systolic Congestive heart failure chronicity : chronic Qualified Code(s): I50.22 - Chronic systolic (congestive) heart failure (2) Acute kidney injury superimposed on chronic kidney disease Current Visit: Yes Status: Acute Assessment and plan: Patient with acute worsening of renal function. Creatinine 1.5 this morning. Due to Lasix use. We will hold Lasix and spironolactone. Follow renal function closely. (3) Ischemic cardiomyopathy Current Visit: Yes Status: Acute Assessment and plan: ontinue aspirin, Plavix, beta franny. Hold off on Lasix and spironolactone (4) COPD (chronic obstructive pulmonary disease) Current Visit: Yes Status: Chronic Assessment and plan: patient has mild wheezing bilaterally. Continue bronchodilators Qualifiers: COPD type: emphysema Emphysema type: unspecified Qualified Code(s): J43.9 - Emphysema, unspecified (5) Chest pain Current Visit: Yes Status: Resolved Qualifiers: Chest pain type: chest pain due to myocardial ischemia Ischemic chest pain type: stable angina pectoris Qualified Code(s): I20.8 - Other forms of angina pectoris (6) Chronic kidney disease, stage II (mild) Current Visit: Yes Status: Acute Assessment and plan: With acute kidney injury (7) DM2 (diabetes mellitus, type 2) Current Visit: Yes Status: Chronic Assessment and plan: Bernardo sugars were elevated last time but has since been better controlled. Continue current insulin regimen Qualifiers: Diabetes mellitus complication status: with circulatory complication Diabetes mellitus complication detail: with other circulatory complications Diabetes mellitus senior care insulin use: with intermediate teacher use Qualified Code(s) : E11.59 - Type 2 diabetes mellitus with other circulatory complications; Z79.4 - intermediate teacher (current) use of insulin; Z79.4 - custodial (current) use of insulin ; Z79.4 - custodial (current) use of insulin; Z79.4 - custodial (current) use of insulin (8) HLD (hyperlipidemia) Current Visit: Yes Status: Chronic Assessment and plan: Continue Lopid Qualifiers: Hyperlipidemia type: mixed hyperlipidemia Qualified Code(s): E78.2 - Mixed hyperlipidemia (9) HTN (hypertension) Current Visit: Yes Status: Chronic Assessment and plan: Fairly controlled. Patient having low normal blood pressure today. We will decrease metoprolol dosage. Qualifiers: Hypertension type: essential hypertension Qualified Code(s): I10 - Essential (primary) hypertension (10) Hx of CABG Current Visit: No Status: Chronic (11) DVT prophylaxis Current Visit: Yes Status: Acute Assessment and plan: On subcutaneous heparin (12) Atrial fibrillation Current Visit: Yes Status: Chronic Assessment and plan: Date controlled with intermittent RVR. Not on anticoagulation due to an abnormal finding on brain MRI. Recommend outpatient follow-up. Cardiology input appreciated. Qualifiers: Atrial fibrillation type: permanent Qualified Code(s): I48.2 - Chronic atrial fibrillation - Subjective Interval history: Patient was doing well this morning and then developed sudden onset of tingling pain in his low back and then in his jaw that shot down both his arms. It was associated with some numbness in his left hand. This has since subsided. He did not have any chest pain at that time. Continues to have some cough and shortness of breath. No fever or chills reported overnight. Remains on room air. - Constitutional Vitals: Temp Pulse Resp BP Pulse Ox 98.3 F 88 16 98/70 98 04/21/17 07:00 04/21/17 07:00 04/21/17 10:35 04/21/17 13:26 04/21/17 10:35 General appearance: Present: cooperative, mild distress, A&O X 3, pleasant, answers questions appropriately - Neck Neck exam general surgery: Present: supple, trachea midline. Absent: lymphadenopathy - Respiratory Respiratory exam: Present: decreased breath sounds (At both bases). Absent: accessory muscle use, rales, rhonchi, wheezes - Cardiovascular Cardiovascular exam: Present: RRR, +S1, +S2. Absent: diastolic murmur, gallop, rubs, systolic murmur - Extremities Exam Extremities exam: Present: pedal edema, warm, radial pulses palpable and symmetrical. Absent: calf tenderness, cyanotic - Neurological Exam Neurological exam: Present: alert, oriented X3, no focal deficits. Absent: facial droop, speech deficit - Skin Skin exam: Present: dry, intact Internal Medicine: Result - Labs CBC & Chem 7: 04/21/17 02:52 04/21/17 12:57 Labs: Short CBC 04/21/17 Range/Units 02:52 WBC 12.6 H (4.3-11.1) K/mcL Hgb 13.7 (12.9-16.9) g/dL Hct 41.7 (37.5-50.1) % Plt Count 190 (140-400) K/mcL Neutrophils # 8.5 (1.6-8.9) K/mcL BMP 04/21/17 04/21/17 02:52 12:57 Sodium 135 L 137 Potassium 4.2 4.2 Chloride 97 L 99 Carbon Dioxide 30 H 24 BUN 26 31 H Creatinine 1.52 H 1.48 H Glucose 184 H 103 H Calcium 9.6 9.6 - ABG Interpretation ABG results: PT/INR, D-dimer PT 12.6 Seconds (9.4-12.1) H 04/19/17 00:48 Consult Discharge Plan - Plan Instructions: Heart Failure (DC), Atrial Fibrillation (DC), Chest Pain (DC), Diabetes Mellitus Type 2 in Adults (DC), Chronic Obstructive Pulmonary Disease ( DC) [facility]errals: [facility] [Primary Care Provider] -
[2017-04-22 03:36] LABS: BUN/Creatinine Ratio 24 (6-26); Blood Urea Nitrogen 26 mg/dL (8-26); Calcium 8.8 mg/dL (8.6-10.8); Carbon Dioxide 25 mEq/L (19-29); Chloride 101 mEq/L (98-109); Glucose 161 mg/dL (70-99); Osmolality,Calculated 292 (280-300); Potassium 4.5 mEq/L (3.5-4.5); Sodium 137 mEq/L (136-145); eGFR For African Americans > 60 (> 60); eGFR For Non-African Americans > 60 (> 60)
[2017-04-22] MEDS: Budesonide/Formoterol 160/4.5 MDI IH SCH (08:22)
[2017-04-22] MEDS: Insulin LISPRO 300 UNITS/3 ML VIAL SQ SCH ×4 (08:30→12:41)
[2017-04-22] MEDS: Aspirin 81 MG TAB.CHEW PO SCH (08:32)
[2017-04-22] MEDS: Pregabalin 50 MG CAPSULE PO SCH (08:32)
[2017-04-22] MEDS: Isosorbide MONOnitrate (24 HR) 30 MG TAB.ER.24H PO SCH (08:32)
[2017-04-22] MEDS: Loratadine 10 MG TABLET PO SCH (08:33)
[2017-04-22] MEDS: Insulin DETEMIR 100 UNIT/ML X5UNITS SQ SCH (08:35)
[2017-04-22] MEDS ORDERED: Furosemide 20 MG TABLET PO SCH (12:30)
--- NOTE | 2017-04-22 14:33 | Discharge Summary ---
Date of Encounter: 04/22/17 Time of Encounter: 12:20 - Discharge Diagnosis (1) Chest pain Priority: Primary Status: Resolved Qualifiers: Chest pain type: chest pain due to myocardial ischemia Ischemic chest pain type: stable angina pectoris Qualified Code(s): I20.8 - Other forms of angina pectoris (2) Atrial fibrillation Priority: Secondary Status: Chronic Qualifiers: Atrial fibrillation type: permanent Qualified Code(s): I48.2 - Chronic atrial fibrillation (3) CHF (congestive heart failure) Priority: Secondary Status: Acute Comments: CHF exacerbation Qualifiers: Congestive heart failure type: systolic Congestive heart failure chronicity : chronic Qualified Code(s): I50.22 - Chronic systolic (congestive) heart failure (4) Diabetes Priority: Secondary Status: Chronic Qualifiers: Diabetes mellitus type: type 2 Diabetes mellitus complication status: without complication Diabetes mellitus bed bug exterminator insulin use: with bed bug exterminator use Qualified Code(s): E11.9 - Type 2 diabetes mellitus without complications ; Z79.4 - shelter (current) use of insulin (5) Ischemic cardiomyopathy Priority: Secondary Status: Chronic (6) CAD (coronary artery disease) Priority: Secondary Status: Chronic Qualifiers: Coronary Disease-Associated Artery/Lesion type: bypass graft, autologous vein Associated angina: without angina Qualified Code(s): I25.810 - Atherosclerosis of coronary artery bypass graft(s) without angina pectoris (7) HTN (hypertension) Priority: Secondary Status: Chronic Qualifiers: Hypertension type: essential hypertension Qualified Code(s): I10 - Essential (primary) hypertension (8) DVT prophylaxis Priority: Secondary Status: Acute (9) Acute kidney injury superimposed on chronic kidney disease Priority: Primary Status: Resolved - Discharge Medications Prescriptions: Aspirin 81 mg PO DAILY #30 tab.chew Furosemide [Lasix] 20 mg PO BID #60 tablet Isosorbide MONOnitrate (24 HR) [Imdur] 30 mg PO DAILY #30 tab.er.24h Metoprolol [Lopressor] 50 mg PO BID #60 tablet Home Medications: Omeprazole [PriLOSEC] 20 mg PO BID #0 02/15/15 [History] Clopidogrel [Plavix] 75 mg PO QAM 03/01/15 [History] Insulin ASPART [NovoLOG] 22 unit SQ TIDAC 03/01/15 [History] Insulin Glargine,Hum.rec.anlog [Lantus Solostar] 55 unit SQ BID 03/01/15 [ History] Nitroglycerin [Nitrostat] 0.4 mg SL AD PRN 03/01/15 [History] Albuterol Sulfate [Albuterol Inhaler] 2 puff IH QID PRN 01/26/16 [History] Dextrose [Glucose] 12 gm PO DAILY PRN 01/26/16 [History] Fluticasone Propionate Nasal [Flonase] 50 mcg NS DAILY PRN 01/26/16 [History] Gemfibrozil [Lopid] 600 mg PO BID 01/26/16 [History] Lisinopril [Zestril] 10 mg PO BID 01/26/16 [History] Loratadine [Claritin] 10 mg PO DAILY 01/26/16 [History] Metformin HCl [Glucophage] 1,000 mg PO QPM 01/26/16 [History] Metformin HCl [Glucophage] 1,500 mg PO QAM 01/26/16 [History] Franklin-3 Acid Ethyl Esters [Lovaza] 1 gm PO DAILY 01/26/16 [History] Potassium Chloride [K-Tab ER] 10 meq PO DAILY 01/26/16 [History] Sodium Chloride [Rhinaris] 2 spray NS TID PRN 01/26/16 [History] Albuterol Neb [AccuNeb] 1.25 mg IH Q4H PRN 30 Days inhsol 01/29/16 [Rx] Budesonide/Formoterol 160/4.5 [Symbicort 160/4.5] 2 puff IH BID 04/18/17 [ History] Spironolactone [Aldactone] 50 mg PO DAILY 04/18/17 [History] Methocarbamol [Robaxin-750] 750 mg PO QID 04/19/17 [History] Pregabalin [Lyrica] 50 mg PO TID 04/19/17 [History] Aspirin 81 mg PO DAILY #30 tab.chew 04/22/17 [Rx] Furosemide [Lasix] 20 mg PO BID #60 tablet 04/22/17 [Rx] Isosorbide MONOnitrate (24 HR) [Imdur] 30 mg PO DAILY #30 tab.er.24h 04/22/17 [ Rx] Metoprolol [Lopressor] 50 mg PO BID #60 tablet 04/22/17 [Rx] Allergies/Adverse Reactions: 3 Allergy/AdvReac Type Severity Reaction Status Date / Time acetaminophen Allergy See Verified 02/15/15 01:08 [From Tylenol-Codeine] Comments codeine Allergy See Verified 02/15/15 01:08 [From Tylenol-Codeine] Comments iodine Allergy Vomiting Verified 02/15/15 01:08 Nortriptyline Allergy See Verified 02/15/15 01:08 Comments shellfish derived Allergy Vomiting Verified 02/15/15 01:08 Date of admission: 04/18/17 23:36 [facility]: [facility] Consults: Cardiology:Dr. Allison Discharging clinician: Leila Jackson Anticipated date of discharge: 04/22/17 - Patient Status Disposition: Home, Self-Care Condition: Good Functional capacity at discharge: independent ambulation Overall status at discharge: patient is back to baseline - Discharge Instructions Instructions: Heart Failure (DC), Atrial Fibrillation (DC), Chest Pain (DC), Diabetes Mellitus Type 2 in Adults (DC), Chronic Obstructive Pulmonary Disease ( DC) Follow Up With: [facility],PCP [Primary Care Provider] - Additional Instructions: Please follow up with your primary care physician within five days after your discharge from the hospital. Please follow up with cardiology within one week after your discharge from the hospital. Your home medications have been changed as follows: 1. Aspirin 81mg once a day has been added 2. Lasix 20mg twice a day has been added 3. Metoprolol has been decreased to 50mg twice a day 4. Imdur 30mg once a day has been added 5. continue all your other home meds as prescribed by your primary care physician. 6. Hold blood pressure medications if your systolic blood pressure is less than 100 Please seek medical help if chest pain recurs. - Diet and Activity Activity: increase activity as tolerated Diet: diabetic diet, low fat, low cholesterol, low salt diet Hospital course: Mr. Medel is a 66 year old male with PMH of CAD, s/p CABG, s/p multiple PCI, CHF, COPD, DM, HTN who was admitted for increasing SOB, B/L LE edema, and chest tightness. Pt was started on IV diuresis and his home dose of bumex was discontinued. He responded well to IV diuresis. He was also evaluated by cardiology and Imdur was added to his home medications. He was noted to have OMAIRA on CKD due to IV diuresis therapy due to which Lasix was placed on hold. His renal function improved and low dose lasix has been resumed. He is hemodynamically stable and reports of complete resolution of his presenting symptoms. He will be discharged to home with follow up with primary care physician and cardiology. - Time Spent with Patient Total time spent providing and/or coordinating discharge services: Greater than 30 minutes - Constitutional Vitals: Temp Pulse Resp BP Pulse Ox 98.1 F 86 16 97/62 98 04/22/17 07:30 04/22/17 07:30 04/22/17 08:22 04/22/17 07:30 04/22/17 08:22 General appearance: Present: cooperative, A&O X 3, pleasant, no acute distress, answers questions appropriately - Head Head exam: Present: atraumatic, normocephalic - Eye Eye exam: Present: conjuntiva pink, sclera anicteric - Respiratory Respiratory exam: Present: CTAB. Absent: respiratory distress, wheezes - Cardiovascular Cardiovascular exam: Present: RRR, +S1, +S2 - GI/Abdominal GI/Abdominal exam: Present: normal bowel sounds, soft, no peritoneal signs. Absent: distended, tenderness - Extremities Exam Extremities exam: Present: pedal edema (trace pedal edema ), warm, radial pulses palpable and symmetrical. Absent: calf tenderness - Neurological Exam Neurological exam: Present: alert, oriented X3
[2017-04-22 14:34] VITALS: BP 114/85
--- NOTE | 2017-04-22 22:30 | Electrocardiograph Report ---
[place] [id number] Test Date: 2017-04-18 Pat Name: Abrahan Medel Department: 104 Room: 2NE24 Gender: M Massotherapist: LUIS CARLOS : 1950 Requested By: Ervin Ulloa Order Number: [id number] Reading MD: Claudette Allison Measurements Intervals Edon Rate: 100 P: IA: 0 QRS: -29 QRSD: 140 T: 78 QT: 371 QTc: 428 Interpretive Statements ATRIAL FIBRILLATION WITH RAPID VENTRICULAR RESPONSE INTRAVENTRICULAR CONDUCTION DELAY [130+ ms QRS DURATION] POSSIBLE ANTERIOR MYOCARDIAL INFARCTION [30 ms Q WAVE IN V3/V4, OR R < 0.2 mV IN V4], OF INDETERMINATE AGE Electronically Signed On 04-22-2017 22:28:46 EST by Claudette Allison
== END 2017-04-22 16:39 | disposition home or self-care (01) | DRG 291 ==
LOC: EMEROO 18:10 → 2NENU 18:10 → SUATTDRO 23:36
PROVIDERS: ADMIT Internal Medicine Hematology & Oncology; ATTEND Internal Medicine

== ENCOUNTER 2017-12-13 00:02 | Inpatient (IN) ==
[2017-12-13] MEDS ORDERED: Pantoprazole 80 MG in 0.9 % Sodium Chloride 50 ML IVPB ONE (00:08)
[2017-12-13] MEDS ORDERED: 0.9 % Sodium Chloride 1,000 ML IVC ONE (00:08)
--- NOTE | 2017-12-13 00:23 | Emergency Department Note ---
Disposition Clinical Impression: Septic shock, Multifocal pneumonia, Ischemic cardiomyopathy, Lactic acidosis GI hemorrhage Qualifiers: GI bleed type/associated pathology: unspecified gastrointestinal hemorrhage type Qualified Code(s): K92.2 - Gastrointestinal hemorrhage, unspecified Atrial fibrillation Qualifiers: Atrial fibrillation type: permanent Qualified Code(s): I48.2 - Chronic atrial fibrillation Leukocytosis (leucocytosis) Qualifiers: Leukocytosis type: unspecified Qualified Code(s): D72.829 - Elevated white blood cell count, unspecified Disposition: Admitted As Inpatient Condition: Serious Time of Disposition: 05:08 General Adult HPI - General Stated complaint: Upper GI Bleed Time Seen by Provider: 12/13/17 00:07 Source: patient, EMS Mode of arrival: EMS Limitations: age Nursing Notes Reviewed: Yes Vital Signs Reviewed: Yes - History of Present Illness HPI Narrative: Patient presents to the ED via EMS as a transfer from the DC for possible GI bleed. Patient was a rapid response on the inpatient service at the DC. According to the physician that called. The patient was found having blood in his nose and mouth and some from his G-tube. States that he was tachycardic into the 130s, so they called 911 to send him here. Patient was already in the ambulance on his way here when the DC, called to ask for acceptance. Patient arrives in no acute distress. He states that he started having some bleeding from his mouth earlier. Is complaining of chronic back pain, no acute pain. No headache, changes in vision, chest pain or shortness breath. No abdominal pain or nausea. No rash. - Related Data Home Medications Medication Instructions Recorded Confirmed Omeprazole [PriLOSEC] 20 mg PO BID #0 02/15/15 04/18/17 Clopidogrel [Plavix] 75 mg PO QAM 03/01/15 04/18/17 Insulin ASPART [NovoLOG] 22 unit SQ TIDAC 03/01/15 04/18/17 Insulin Glargine,Hum.rec.anlog 55 unit SQ BID 03/01/15 04/18/17 [Lantus Solostar] Nitroglycerin [Nitrostat] 0.4 mg SL AD PRN 03/01/15 04/18/17 Albuterol Sulfate [Albuterol 2 puff IH QID PRN 01/26/16 04/18/17 Inhaler] Dextrose [Glucose] 12 gm PO DAILY PRN 01/26/16 04/18/17 Fluticasone Propionate Nasal 50 mcg NS DAILY PRN 01/26/16 04/18/17 [Flonase] Gemfibrozil [Lopid] 600 mg PO BID 01/26/16 04/18/17 Lisinopril [Zestril] 10 mg PO BID 01/26/16 04/18/17 Loratadine [Claritin] 10 mg PO DAILY 01/26/16 04/18/17 Metformin HCl [Glucophage] 1,000 mg PO QPM 01/26/16 04/18/17 Metformin HCl [Glucophage] 1,500 mg PO QAM 01/26/16 04/18/17 Clifford-3 Acid Ethyl Esters [Lovaza] 1 gm PO DAILY 01/26/16 04/18/17 Potassium Chloride [K-Tab ER] 10 meq PO DAILY 01/26/16 04/18/17 Sodium Chloride [Rhinaris] 2 spray NS TID PRN 01/26/16 04/18/17 Budesonide/Formoterol 160/4.5 2 puff IH BID 04/18/17 04/18/17 [Symbicort 160/4.5] Spironolactone [Aldactone] 50 mg PO DAILY 04/18/17 04/18/17 Methocarbamol [Robaxin-750] 750 mg PO QID 04/19/17 04/19/17 Pregabalin [Lyrica] 50 mg PO TID 04/19/17 04/19/17 Previous Rx's Medication Instructions Recorded Albuterol Neb [AccuNeb] 1.25 mg IH Q4H PRN 30 Days inhsol 01/29/16 Aspirin 81 mg PO DAILY #30 tab.chew 04/22/17 Furosemide [Lasix] 20 mg PO BID #60 tablet 04/22/17 Isosorbide MONOnitrate (24 HR) 30 mg PO DAILY #30 tab.er.24h 04/22/17 [Imdur] Metoprolol [Lopressor] 50 mg PO BID #60 tablet 04/22/17 Allergies Allergy/AdvReac Type Severity Reaction Status Date / Time acetaminophen Allergy See Verified 02/15/15 01:08 [From Tylenol-Codeine] Comments codeine Allergy See Verified 02/15/15 01:08 [From Tylenol-Codeine] Comments iodine Allergy Vomiting Verified 02/15/15 01:08 Nortriptyline Allergy See Verified 02/15/15 01:08 Comments shellfish derived Allergy Vomiting Verified 02/15/15 01:08 Review of Systems: As reviewed in the HPI. All other systems reviewed are negative or normal. Past Medical History - Past Medical History Attestation: Yes The following information was validated with the patient. Source: old records reviewed Medical history: Reports: atrial fibrillation, CHF, COPD, coronary artery disease, DVT, diabetes, GERD, hyperlipidemia, hypertension, myocardial infarction Surgical history: Reports: coronary bypass (CABG), other Psychiatric history: Reports: anxiety, PTSD - Social History Smoking Status: Current some day smoker Smokeless Tobacco Status: No Alcohol use: Reports: none Drug use: Reports: none Physical Exam CONSTITUTIONAL: Chronically ill appearing in no acute distress SKIN: [Warm, dry, and intact without rash, medium sized sacral decub (pre- hospital)] EYES: [extraocular movements are grossly intact, clear conjunctiva] HENT: . 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 Had an episode of coughing up blood at the DC. Has not had any return since he was here. He does smell like a GI bleed. However. We will get labs and workup and admit. Patient mildly anemic. We will transfuse 2 units of blood as the DC physician sent the patient lost quite a significant amount of blood. We will also get a CT of the chest, abdomen and pelvis to evaluate for potential causes of his leukocytosis and lactic acidosis. CT shows multifocal pneumonia, but no obvious GI source. Does have some nonspecific pneumobilia. We will contact the hospitalist for admission - Reevaluation(s) Reevaluation #1: Patient was going to be admitted to the hospital for multifocal pneumonia and suspected GI bleed. I was called back into the room and the patient had a large volume of hematemesis with dark blood and multiple clots. He was suctioned and had a significant amount spilled onto the floor. Spoke with on-call surgeon, Dr. Sparks. He is aware and will scope him later today. Patient was intubated with rapid sequence intubation for airway protection, please see my separate procedure note for documentation. The patient will be admitted to the ICU. I spoke with the hospitalist, and he accepted the patient for admission. We are starting the patient on an octreotide drip, although he has no history of esophageal varices. He had a quite significant volume of hematemesis. We will also start him on a Protonix drip. We have ordered 2 more units of blood for a total of 4 units. We are ordering one pool of platelets as well. We are establishing additional IV access. If patient becomes unstable/hypotensive, will place trauma line but do think peripheral access will suffice for now. Has not required vasopressor support and will be getting resuscitated with blood products. Patient has remained tachycardic and hypertensive. Increasing sedation with propofol and if does not respond and remains in a-fib will start on Amio. Time: 05:03 Reevaluation #2: Patient stabilized to best of our ability. Continuing to get blood. Plan is to be admitted to ICU, plan as below: Systems based plan: CONTRACTING EXECUTIVE: propofol for sedation, wean as tolerated Pulmonary: acceptable oxygenation/ventilation but suspected aspiration of blood and possible multi-focal pneumonia. Started on vanc/zosyn/levaquin, will continue and plan to deescalate when more stable. Cardiovascular: HTN and tachycardia, a-fib. Reevaluate after adequate sedation achieved. If remains tachycardic after blood pressure admin, would likely start on Amio GI: suspected source of his large volume hematemesis, patient on octreotide and Protonix drip. Patient to have upper endoscopy later today in the intensive care unit or OR Heme: h/h Q4-6, replace as needed to keep hgb >7, also receiving platelets due to being on plavix, maintain OG to LIWS ID: Continue antibiotics and plan to de-escalation, monitor leukocytosis Renal: Trend Endorcine: Monitor blood glucose, insulin as needed Lines: all lines checked and no signs of infection (3-PIV, OG, PEG, Donis), maintain donis for critical hourly I/O's Skin: has pre-hospital sacral pressure ulcer, monitor and turn frequently to reduce further damage Overall prognosis is extremely poor Time: 05:43 Vital Signs Temperature 99.7 F H 12/13/17 00:06 Pulse Rate 111 12/13/17 00:06 Respiratory Rate 25 12/13/17 00:06 Blood Pressure 119/62 12/13/17 00:06 O2 Sat by Pulse Oximetry 97 12/13/17 00:06 Temperature 97.9 F 12/13/17 04:36 Pulse Rate 127 12/13/17 04:36 Respiratory Rate 12 12/13/17 05:03 Blood Pressure 123/82 12/13/17 04:36 O2 Sat by Pulse Oximetry 100 12/13/17 05:03 Oxygen Delivery Oxygen Delivery Nasal Cannula Procedures - Intubation Time out performed: Yes sedative: Etomidate Mg Given: 20 paralytic: Rocuronium Mg Given: 100 Laryngoscope: Ashlie ET Tube Size: 8 ET Tube Uncuffed: No Tube Secured Depth (cm): 25 Tube Secured Location: lips Tube Placement Confirmation: visualized tube passing through cords, equal breath sounds bilaterally, no breath sounds over epigastrium, confirmation by capnometry Patient Tolerated Procedure: well, no complications Intubation Complications: none Medical Decision Making - Lab Data Result diagrams: 12/13/17 00:25 12/13/17 00:25 Lab Results 12/13/17 12/13/17 12/13/17 Range/Units 00:25 00:25 00:25 WBC 23.2 H (4.3-11.1) K/mcL RBC 3.87 L (4.19-5.50) M/mcL Hgb 12.7 L (12.9-16.9) g/dL Hct 39.0 (37.5-50.1) % MCV 100.8 H (83.0-100.0) fL MCH 32.8 (28.0-33.3) pg MCHC 32.6 (31.6-35.5) g/dL RDW 17.6 H (11.5-14.5) % Plt Count 395 (140-400) K/mcL MPV 9.0 L (9.4-12.4) fL Immature Gran % 0.6 (0-4) % Seg Neutrophils % 65.7 % Lymphocytes % 20.4 % Monocytes % 12.0 % Eosinophils % 1.0 % Basophils % 0.3 % Neutrophils # 15.2 H (1.6-8.9) K/mcL Lymphocytes # 4.7 H (0.6-4.6) K/mcL Monocytes # 2.8 H (0.0-1.3) K/mcL Eosinophils # 0.2 (0.0-0.6) K/mcL Basophils # 0.1 (0.0-0.2) K/mcL Nucleated RBCs/100 WBC 0.1 H (0) /100 WBC Platelet Estimate Slight increase H (Normal) Clumped Platelets Few A (Not Present) Large Platelets Present A (Not Present) Polychromasia 1+ A (Not Present) Anisocytosis 2+ A (Not Present) Macrocytosis Present A (Not Present) PT 13.6 H (9.4-12.1) Seconds INR 1.2 APTT 20.6 L (26.0-36.0) Seconds Sodium 134 L (136-145) mEq/L Potassium 4.3 (3.5-5.1) mEq/L Chloride 88 L (98-107) mEq/L Carbon Dioxide 29 (23-29) mEq/L BUN 34 H (8-23) mg/dL Creatinine 0.84 (0.70-1.30) mg/dL Est GFR ( Amer) > 60 (> 60) Est GFR (Non-Af Amer) > 60 (> 60) BUN/Creatinine Ratio 40 H (6-26) Glucose 270 H (70-105) mg/dL Calculated Osmolality 295 (280-300) Lactic Acid (0.5-2.2) mmol/L Calcium 9.4 (8.6-10.3) mg/dL Total Bilirubin 0.7 (0.3-1.0) mg/dL AST 30 (13-39) Units/L ALT 29 (7-52) Units/L Alkaline Phosphatase 67 (34-104) Units/L Troponin I 0.03 (< 0.04) ng/mL Serum Total Protein 7.2 (6.4-8.9) g/dL Albumin 3.3 L (3.5-5.7) g/dL Globulin 3.9 H (2.4-3.5) g/dL Albumin/Globulin Ratio 0.8 L (1.1-2.2) Urine Color (Yellow) Urine Clarity (Clear) Urine pH (5.0-8.0) pH Units Ur Specific [place] (1.010-1.025) Urine Protein (Neg-Trace) mg/dL Urine Glucose (UA) (Normal) mg/dL Urine Ketones (Negative) mg/dL Urine Blood (Negative) Urine Nitrite (Negative) Urine Bilirubin (Negative) Urine Urobilinogen (Normal) mg/dL Ur Leukocyte Esterase (Negative) Ur Culture Indicated? (NO) Blood Type Antibody Screen Crossmatch 12/13/17 12/13/17 12/13/17 Range/Units 00:25 00:50 02:30 WBC (4.3-11.1) K/mcL RBC (4.19-5.50) M/mcL Hgb (12.9-16.9) g/dL Hct (37.5-50.1) % MCV (83.0-100.0) fL MCH (28.0-33.3) pg MCHC (31.6-35.5) g/dL RDW (11.5-14.5) % Plt Count (140-400) K/mcL MPV (9.4-12.4) fL Immature Gran % (0-4) % Seg Neutrophils % % Lymphocytes % % Monocytes % % Eosinophils % % Basophils % % Neutrophils # (1.6-8.9) K/mcL Lymphocytes # (0.6-4.6) K/mcL Monocytes # (0.0-1.3) K/mcL Eosinophils # (0.0-0.6) K/mcL Basophils # (0.0-0.2) K/mcL Nucleated RBCs/100 WBC (0) /100 WBC Platelet Estimate (Normal) Clumped Platelets (Not Present) Large Platelets (Not Present) Polychromasia (Not Present) Anisocytosis (Not Present) Macrocytosis (Not Present) PT (9.4-12.1) Seconds INR APTT (26.0-36.0) Seconds Sodium (136-145) mEq/L Potassium (3.5-5.1) mEq/L Chloride (98-107) mEq/L Carbon Dioxide (23-29) mEq/L BUN (8-23) mg/dL Creatinine (0.70-1.30) mg/dL Est GFR ( Amer) (> 60) Est GFR (Non-Af Amer) (> 60) BUN/Creatinine Ratio (6-26) Glucose (70-105) mg/dL Calculated Osmolality (280-300) Lactic Acid 4.4 H* (0.5-2.2) mmol/L Calcium (8.6-10.3) mg/dL Total Bilirubin (0.3-1.0) mg/dL AST (13-39) Units/L ALT (7-52) Units/L Alkaline Phosphatase (34-104) Units/L Troponin I (< 0.04) ng/mL Serum Total Protein (6.4-8.9) g/dL Albumin (3.5-5.7) g/dL Globulin (2.4-3.5) g/dL Albumin/Globulin Ratio (1.1-2.2) Urine Color Yellow (Yellow) Urine Clarity Clear (Clear) Urine pH 6.0 (5.0-8.0) pH Units Ur Specific [place] 1.026 H (1.010-1.025) Urine Protein Negative (Neg-Trace) mg/dL Urine Glucose (UA) 250 H (Normal) mg/dL Urine Ketones Trace H (Negative) mg/dL Urine Blood Negative (Negative) Urine Nitrite Negative (Negative) Urine Bilirubin Negative (Negative) Urine Urobilinogen Normal (Normal) mg/dL Ur Leukocyte Esterase Negative (Negative) Ur Culture Indicated? NO (NO) Blood Type A POSITIVE Antibody Screen NEGATIVE Crossmatch See Detail Critical Care Time Critical Care Time: Yes Total Critical Care Time: 60 Attestation: I personally spent ___60___ minutes devoted to the care of this critically ill patient. This time excludes the time for billable procedures. Attestation Statement - Attestation Attestation: I examined this patient and my medical decision-making was reviewed with the Resident Physician. I agree with the documented findings, disposition and treatment plan as described except to the extent set forth below. Findings consistent with possible GI hemorrhage as well as pneumonia. Patient meets sepsis criteria with lactic acidosis leukocytosis as well as tachycardia. We will fluid resuscitate, start broad-spectrum antibiotics, send cultures, initiate PPI therapy. Patient be admitted for further management of septic shock in the setting of possible GI hemorrhage. I spent greater than 35 minutes of critical care time resuscitating this acutely ill patient suffering from sepsis as well as GI hemorrhage. This was excluding billable procedures. Patient had acute decompensation including vomiting of massive hematemesis. He was emergently intubated after discussion with the family, emergent consultation with general surgery was obtained for emergent endoscopy. The patient is on antiplatelet therapy with Plavix and we did order a pool of platelets, additionally units of blood, sedation with propofol blood pressure will tolerate. The patient will be taken emergently for endoscopy after resuscitation with blood products, Protonix, octreotide, broad-spectrum antibiotics were given for systemic inflammatory response syndrome in the setting of massive hemorrhage and possible aspiration.
[2017-12-13 00:46] LABS: Basophils # 0.1 K/mcL (0.0-0.2); Basophils % 0.3 %; Eosinophils # 0.2 K/mcL (0.0-0.6); Hemoglobin 12.7 g/dL (12.9-16.9); Immature Granulocytes % 0.6 % (0-4); Lymphocytes # 4.7 K/mcL (0.6-4.6); Lymphocytes % 20.4 %; Mean Corpuscular HGB Conc 32.6 g/dL (31.6-35.5); Mean Corpuscular Hemoglobin 32.8 pg (28.0-33.3); Mean Corpuscular Volume 100.8 fL (83.0-100.0); Monocytes # 2.8 K/mcL (0.0-1.3); Nucleated Red Blood Cells 0.1 /100 WBC (0); Platelet Count 395 K/mcL (140-400); Red Blood Count 3.87 M/mcL (4.19-5.50); Red Cell Distribution Width 17.6 % (11.5-14.5); Segmented Neutrophils % 65.7 %
[2017-12-13 00:56] LABS: INR 1.2; Prothrombin Time 13.6 Seconds (9.4-12.1)
[2017-12-13 00:57] LABS: Alanine Aminotransferase 29 Units/L (7-52); Albumin 3.3 g/dL (3.5-5.7); Albumin/Globulin Ratio 0.8 (1.1-2.2); Alkaline Phosphatase 67 Units/L (34-104); Aspartate Amino Transferase 30 Units/L (13-39); BUN/Creatinine Ratio 40 (6-26); Bilirubin,Total 0.7 mg/dL (0.3-1.0); Blood Urea Nitrogen 34 mg/dL (8-23); Calcium 9.4 mg/dL (8.6-10.3); Carbon Dioxide 29 mEq/L (23-29); Chloride 88 mEq/L (98-107); Globulin 3.9 g/dL (2.4-3.5); Glucose 270 mg/dL (70-105); Osmolality,Calculated 295 (280-300); Potassium 4.3 mEq/L (3.5-5.1); Sodium 134 mEq/L (136-145); Total Protein 7.2 g/dL (6.4-8.9); eGFR For Non-African Americans > 60 (> 60)
[2017-12-13 00:58] LABS: Troponin I 0.03 ng/mL (< 0.04)
[2017-12-13 01:03] LABS: Neutrophils # 15.2 K/mcL (1.6-8.9)
[2017-12-13 01:06] LABS: Anisocytosis 2+ (Not Present); Large Platelets Present (Not Present); Macrocytosis Present (Not Present); Platelet Clumps Few (Not Present); Polychromasia 1+ (Not Present)
[2017-12-13] MEDS ORDERED: Isovue-370 500 ML INFUS..BTL IV ONE (01:14)
[2017-12-13 01:19] LABS: Activated Partial Thrombo Time 20.6 Seconds (26.0-36.0)
[2017-12-13] MEDS ORDERED: Piperacillin/Tazobactam 3.375 GM in 0.9 % Sodium Chloride Mini Bag 100 ML IVPB ONE (01:59)
[2017-12-13] MEDS ORDERED: Levofloxacin 750 MG/150 ML 750 MG/150 ML BAG IVPB ONE (01:59)
[2017-12-13] MEDS: 0.9 % Sodium Chloride 1,000 ML IVC SCH ×4 (02:00→15:12)
[2017-12-13 02:37] LABS: Bilirubin,Urine Negative (Negative); Blood,Urine Negative (Negative); Clarity,Urine Clear (Clear); Color,Urine Yellow (Yellow); Glucose,Urine (UA) 250 mg/dL (Normal); Ketones,Urine Trace mg/dL (Negative); Leukocyte Esterase,Urine Negative (Negative); Nitrite,Urine Negative (Negative); Protein,Urine Negative (Neg-Trace); Specific Gravity,Urine 1.026 (1.010-1.025); Urobilinogen,Urine Normal (Normal)
[2017-12-13] MEDS ORDERED: Octreotide 50 MCG/ML SYRINGE IVP ONE (04:23)
[2017-12-13] MEDS ORDERED: Ondansetron 4 MG/2 ML VIAL ONE (04:31)
[2017-12-13] MEDS ORDERED: Propofol 500 MG/50 ML INFUS..BTL ONE (04:39)
[2017-12-13] MEDS ORDERED: Naloxone 0.4 MG/ML INJ IVP PRN (04:53)
[2017-12-13] MEDS ORDERED: Lacri-Lube 3.5 GM TUBE BOTH EYES PRN (04:53)
[2017-12-13] MEDS ORDERED: Ondansetron 4 MG/2 ML VIAL IVP PRN (04:53)
--- NOTE | 2017-12-13 04:53 | Internal Med History&Physical ---
Date of Encounter: 12/13/17 Time of Encounter: 04:53 Internal Medicine - H&P: HPI Chief complaint: Hemetemsis Admitted From: Hospital to Hospital Transfer History of present illness: Mr. Medel is a 67 year old male with a past medical history of atrial fibrillation on aspirin and Plavix, diastolic CHF, hypertension, diabetes mellitus type 2, CKD stage II, GERD, PEG tube, protein calorie malnutrition, chronic debilitation, and stage 3 sacral decubitus ulcer who was transferred from the [place] secondary to upper GI bleed with hematemesis. Patient was intubated to protect his airway and sedated in the ED and all history of present illness was obtained from the medical record. Past Med Surg Social Fam HX - Past Medical History Medical history: atrial fibrillation, CHF, COPD, coronary artery disease, DVT, diabetes, GERD, hyperlipidemia, hypertension, myocardial infarction Additional medical history: dysphagia. tremor Psychiatric history: anxiety, PTSD - Past Surgical History Surgical History: coronary bypass (CABG), other Additional surgical history: two rods placed in lower back, plate placement in neck, PEG - Social History Smoking Status: Current some day smoker Smokeless Tobacco Status: No Alcohol use: none Drug use: none Current living situation: Other ([place] resident) Activity Level: Bed bound - Family History Mother Adopted: No Family Member Ethnicity: Non- Twin of Family Member: Yes Living Status: Hx Family Cardiac Disorders: No Hx Family Respiratory Disorders: No Hx Family Cancer: Yes Hx Family GI Disorders: No Hx Family Endocrine Disorder: No Hx Family Neuromuscular Disorders: No Hx Family Neurologic Disorders: No Hx Family HEENT Disorders: Yes Hx Family Autoimmune Disorders: No Internal Medicine - H&P: Meds Omeprazole [PriLOSEC] 20 mg PO BID #0 02/15/15 [History] Clopidogrel [Plavix] 75 mg PO QAM 03/01/15 [History] Insulin ASPART [NovoLOG] 22 unit SQ TIDAC 03/01/15 [History] Insulin Glargine,Hum.rec.anlog [Lantus Solostar] 55 unit SQ BID 03/01/15 [ History] Nitroglycerin [Nitrostat] 0.4 mg SL AD PRN 03/01/15 [History] Albuterol Sulfate [Albuterol Inhaler] 2 puff IH QID PRN 01/26/16 [History] Dextrose [Glucose] 12 gm PO DAILY PRN 01/26/16 [History] Fluticasone Propionate Nasal [Flonase] 50 mcg NS DAILY PRN 01/26/16 [History] Gemfibrozil [Lopid] 600 mg PO BID 01/26/16 [History] Lisinopril [Zestril] 10 mg PO BID 01/26/16 [History] Loratadine [Claritin] 10 mg PO DAILY 01/26/16 [History] Metformin HCl [Glucophage] 1,000 mg PO QPM 01/26/16 [History] Metformin HCl [Glucophage] 1,500 mg PO QAM 01/26/16 [History] [place]-3 Acid Ethyl Esters [Lovaza] 1 gm PO DAILY 01/26/16 [History] Potassium Chloride [K-Tab ER] 10 meq PO DAILY 01/26/16 [History] Sodium Chloride [Rhinaris] 2 spray NS TID PRN 01/26/16 [History] Albuterol Neb [AccuNeb] 1.25 mg IH Q4H PRN 30 Days inhsol 01/29/16 [Rx] Budesonide/Formoterol 160/4.5 [Symbicort 160/4.5] 2 puff IH BID 04/18/17 [ History] Spironolactone [Aldactone] 50 mg PO DAILY 04/18/17 [History] Methocarbamol [Robaxin-750] 750 mg PO QID 04/19/17 [History] Pregabalin [Lyrica] 50 mg PO TID 04/19/17 [History] Aspirin 81 mg PO DAILY #30 tab.chew 04/22/17 [Rx] Furosemide [Lasix] 20 mg PO BID #60 tablet 04/22/17 [Rx] Isosorbide MONOnitrate (24 HR) [Imdur] 30 mg PO DAILY #30 tab.er.24h 04/22/17 [ Rx] Metoprolol [Lopressor] 50 mg PO BID #60 tablet 04/22/17 [Rx] 3 Allergy/AdvReac Type Severity Reaction Status Date / Time acetaminophen Allergy See Verified 02/15/15 01:08 [From Tylenol-Codeine] Comments codeine Allergy See Verified 02/15/15 01:08 [From Tylenol-Codeine] Comments iodine Allergy Vomiting Verified 02/15/15 01:08 Nortriptyline Allergy See Verified 02/15/15 01:08 Comments shellfish derived Allergy Vomiting Verified 02/15/15 01:08 ROS unobtainable: due to endotracheal tube All Systems PM: A 10-system review of systems was performed and is negative for pertinent findings except as documented above in the HPI. - Constitutional Vitals: Temp Pulse Resp BP Pulse Ox 97.8 F 107 22 104/70 100 12/13/17 04:25 12/13/17 04:25 12/13/17 04:25 12/13/17 04:25 12/13/17 04:25 Exam: Chronically ill-appearing male intubated and sedated - Head Head exam: Present: atraumatic, normocephalic (Temporal wasting) - Eye Eye exam: Present: PERRL, sclera anicteric Pupils: Present: PERRL - ENT ENT exam: Present: mucous membranes dry (NG tube in place) - Neck Neck exam general surgery: Present: supple, trachea midline. Absent: lymphadenopathy - Respiratory Respiratory exam: Present: rhonchi (Coarse breath sounds bilaterally, intubated) . Absent: accessory muscle use, rales, wheezes - Cardiovascular Cardiovascular exam: Present: irregular rhythm, +S1, +S2. Absent: diastolic murmur, gallop, rubs, systolic murmur - GI/Abdominal GI/Abdominal exam: Present: normal bowel sounds, soft (PEG tube in place), no peritoneal signs. Absent: distended, tenderness - Extremities Exam Extremities exam: Present: normal capillary refill, warm, radial pulses palpable and symmetrical. Absent: calf tenderness, cyanotic, pedal edema - Back Exam Back exam: Absent: normal inspection (Sacral decubitus ulcer, stage III) - Neurological Exam Neurological exam: Absent: pronater drift, facial droop, speech deficit Additional comments: Response to noxious stimuli - Skin Skin exam: Present: mottled, pallor. Absent: warm Additional comments: Sacral decubitus ulcer, stage III, temporal wasting, decreased muscle mass, loss a subcuticular fat Internal Med - H&P Results - Labs CBC & Chem 7: 12/13/17 00:25 12/13/17 00:25 Labs: Short CBC 12/13/17 Range/Units 00:25 WBC 23.2 H (4.3-11.1) K/mcL Hgb 12.7 L (12.9-16.9) g/dL Hct 39.0 (37.5-50.1) % Plt Count 395 (140-400) K/mcL Neutrophils # 15.2 H (1.6-8.9) K/mcL BMP 12/13/17 00:25 Sodium 134 L Potassium 4.3 Chloride 88 L Carbon Dioxide 29 BUN 34 H Creatinine 0.84 Glucose 270 H Calcium 9.4 Cardiac Enzymes 12/13/17 Range/Units 00:25 Troponin I 0.03 (< 0.04) ng/mL Liver Function 12/13/17 Range/Units 00:25 Total Bilirubin 0.7 (0.3-1.0) mg/dL AST 30 (13-39) Units/L ALT 29 (7-52) Units/L Alkaline Phosphatase 67 (34-104) Units/L Albumin 3.3 L (3.5-5.7) g/dL Urine 12/13/17 Range/Units 02:30 Urine Color Yellow (Yellow) Urine Clarity Clear (Clear) Urine pH 6.0 (5.0-8.0) pH Units Ur Specific [place] 1.026 H (1.010-1.025) Urine Protein Negative (Neg-Trace) mg/dL Urine Glucose (UA) 250 H (Normal) mg/dL - ABG Interpretation Interpretation: ABG interpreted by me Interpretation: normal - EKG Data -: EKG Interpreted by Myself (A. fib with RVR, normal QRS duration, no ST elevations or depressions) - Impressions ITS Impressions Chest X-Ray 12/13/17 00:08 IMPRESSION: No acute cardiopulmonary disease. Chronic blunting of the left costophrenic angle. D/ / Jeremy Go MD / Jeremy Go MD Interpreting Provider: Jeremy Go MD Cervical Spine CT 12/13/17 00:11 IMPRESSION: No acute abnormality of the cervical spine. Anterior cervical fusion from C5 through C7. The lowest fixation screws project in the C7-T1 disc space. D/ / Jeremy Go MD / Jeremy Go MD Interpreting Provider: Jeremy Go MD Head CT 12/13/17 00:11 IMPRESSION: Remote right middle cerebral artery distribution infarct. No acute intracranial abnormality. Air-fluid levels in the left maxillary sinus and sphenoid sinus. In light of the history of trauma, fluid in the sinuses may represent hemorrhage. There is no definite fracture. D/ / Jeremy Go MD / Jeremy Go MD Interpreting Provider: Jeremy Go MD Abdomen/Pelvis CT 12/13/17 01:14 IMPRESSION: 1. Multifocal pneumonia identified. Given the appearance of the airways, bronchopneumonia would be the primary consideration, and acute aspiration/aspiration pneumonia could be superimposed. 2. No convincing evidence for gastrointestinal bleed; however, CT angiography would be more sensitive imaging protocol. Alternatively, nuclear medicine tagged RBC scan could be considered. 3. Small portal venous air versus pneumobilia. Etiology/significance uncertain. 4. Somewhat thickened appearance of the urinary bladder wall. 5. Mildly prominent left adrenal gland. D/ / Sekou Garcia / Sekou Garcia Interpreting Provider: Sekou Garcia Chest CT 12/13/17 01:14 IMPRESSION: 1. Multifocal pneumonia identified. Given the appearance of the airways, bronchopneumonia would be the primary consideration, and acute aspiration/aspiration pneumonia could be superimposed. 2. No convincing evidence for gastrointestinal bleed; however, CT angiography would be more sensitive imaging protocol. Alternatively, nuclear medicine tagged RBC scan could be considered. 3. Small portal venous air versus pneumobilia. Etiology/significance uncertain. 4. Somewhat thickened appearance of the urinary bladder wall. 5. Mildly prominent left adrenal gland. D/ / Sekou Garcia / Sekou Garcia Interpreting Provider: Sekou Garcia - Assessment and plan (1) Severe sepsis with acute organ dysfunction Current Visit: Yes Status: Acute Assessment and plan: Patient needs severe sepsis criteria with leukocytosis WBC 23.2, tachycardia HR 127, respiratory rate 25, and lactic acid 4.4 Patient received 2 L IV fluid sepsis bolus and ED Blood cultures pending Repeat lactic acid level pending Continue gentle hydration the setting of diastolic CHF (2) Multifocal pneumonia Current Visit: Yes Status: Acute Assessment and plan: 67[place] [facility] with upper GI bleed and likely aspiration of gastric secretions CTA reveals multifocal pneumonia. Given the appearance of the airways, bronchopneumonia would be the primary consideration, and acute aspiration/ aspiration pneumonia could be superimposed. Patient was intubated in the ED to protect his airway Blood cultures pending Continue empiric vancomycin, Zosyn, and Levaquin (day 1) Critical care consulted for management (3) GI hemorrhage Current Visit: Yes Status: Acute Assessment and plan: Patient on aspirin and Plavix who was transferred from the [place] secondary to upper GI bleed with hematemesis. PEG tube in place Patient was intubated to protect his airway Hemoglobin level 12.7 Type and screen completed 5 units PRBCs and 1 unit platelets ordered Monitor serial H&H Continue Protonix drip and octreotide General surgery, Dr. Sparks consulted Anticipate EGD today Qualifiers: GI bleed type/associated pathology: gastrointestinal hemorrhage with hematemesis Qualified Code(s): K92.0 - Hematemesis (4) Atrial fibrillation with rapid ventricular response Current Visit: Yes Status: Acute Assessment and plan: Patient ATamera fib RVR the heart rate 130s Consider starting Amiodarone drip Hold home aspirin and Plavix in the setting of acute GI hemorrhage CHADS-VASc Score 4 (age, CHF, diabetes, hypertension) HAS-BLED Score 4 (hypertension, GI bleed, age, and aspirin use Re-evaluate need for antiplatelet therapy (5) CAD (coronary artery disease) Current Visit: No Status: Chronic Assessment and plan: Hold home aspirin and Plavix in the setting of acute GI hemorrhage Qualifiers: Coronary Disease-Associated Artery/Lesion type: bypass graft, autologous vein Associated angina: without angina Qualified Code(s): I25.810 - Atherosclerosis of coronary artery bypass graft(s) without angina pectoris (6) Hx of CABG Current Visit: No Status: Chronic (7) Diastolic CHF, chronic Current Visit: No Status: Chronic Assessment and plan: Not in acute exacerbation Echo 12/2/17 revealed LVEF 55%, atypical septal motion consistent with postoperative status, right ventricle mildly dilated and hypokinetic, no evidence of pulmonary hypertension Continue gentle hydration the setting of CHF Monitor daily weight, input and output Hold home diuretics (8) Chronic kidney disease, stage II (mild) Current Visit: Yes Status: Chronic Assessment and plan: Avoid nephrotoxins Continue gentle hydration (9) COPD (chronic obstructive pulmonary disease) Current Visit: No Status: Chronic Assessment and plan: Not in acute exacerbation Continue bronchodilators Continue close monitoring Qualifiers: COPD type: emphysema Emphysema type: unspecified Qualified Code(s): J43.9 - Emphysema, unspecified (10) DM2 (diabetes mellitus, type 2) Current Visit: Yes Status: Chronic Assessment and plan: Hemoglobin A1c level 9.0% on 01/27/16 Continue Accu-Cheks every 6 hours Continue low dose SSI Continue close monitoring Qualifiers: Diabetes mellitus terminal block assembler insulin use: with residential use Diabetes mellitus complication status: with circulatory complication Diabetes mellitus complication detail: with other circulatory complications Qualified Code(s): E11.59 - Type 2 diabetes mellitus with other circulatory complications; Z79.4 - exterminator (current) use of insulin; Z79.4 - group home (current) use of insulin; Z79.4 - exterminator (current) use of insulin; Z79.4 - group home (current) use of insulin (11) HTN (hypertension) Current Visit: No Status: Chronic Assessment and plan: Hold antihypertensive meds the setting of sepsis Qualifiers: Hypertension type: essential hypertension Qualified Code(s): I10 - Essential (primary) hypertension (12) HLD (hyperlipidemia) Current Visit: No Status: Chronic Assessment and plan: Continue current management Qualifiers: Hyperlipidemia type: mixed hyperlipidemia Qualified Code(s): E78.2 - Mixed hyperlipidemia (13) Sacral decubitus ulcer, stage III Current Visit: Yes Status: Chronic Assessment and plan: Chronic debilitation, stage 3 sacral decubitus ulcer Wound care consulted Turn patient every 2 hours (14) Severe protein-calorie malnutrition Current Visit: Yes Status: Chronic Assessment and plan: Patient with temporal wasting, decreased muscle mass, loss a subcuticular fat (15) DVT prophylaxis Current Visit: Yes Status: Acute Assessment and plan: EPCD's - Time Spent With Patient Total time spent is greater than 50% in coordination of care (as documented) at patient's floor/unit and/or counseling patient: Sepsis Reassessment Note - Evaluation Current Stage of Sepsis: severe sepsis Possible Source of Sepsis: GI tract/intra-abdominal - Focused Exam Date of Encounter: 12/13/17 Time of Encounter: 05:07 Vital Signs: Vital Signs Temp Pulse Resp BP Pulse Ox 12/13/17 04:25 97.8 F 107 22 104/70 100 12/13/17 02:05 114 16 99/77 98 12/13/17 00:06 99.7 F H 111 25 119/62 97 Respiratory Exam: Present: rhonchi (Coarse breath sounds, ventilated) Cardiovascular Exam: Present: irregulary irregular Capillary Refill: > 2 seconds Peripheral Pulse Strength: 2+ slightly diminished Peripheral Pulse Location: Radial Skin Exam: normal turgor
[2017-12-13] MEDS ORDERED: 0.9 % Sodium Chloride 500 ML ONE (05:00)
[2017-12-13] MEDS ORDERED: *HR* Dextrose 50 % in Water (Syg) 50 ML SYRINGE IVP PRN (05:05)
[2017-12-13] MEDS ORDERED: Dextrose Gel 15 GM/37.5 ML TUBE PO PRN ×2 (05:05)
[2017-12-13] MEDS ORDERED: D5% in Water 1,000 ML IVC PRN (05:05)
[2017-12-13] MEDS: Propofol 500 MG/50 ML INFUS..BTL IVC SCH (05:30)
[2017-12-13] MEDS: FentaNYL (PF) 1,000 MCG in 0.9 % Sodium Chloride 80 ML IVC SCH ×3 (05:40→23:30)
[2017-12-13 05:43] LABS: ABG Base Excess 3 mEq/L (-2 to 3); ABG HCO3 28 mEq/L (21-27); ABG Oxygen Saturation 99 % (95-98); ABG PCO2 44 mmHg (35-45); ABG PH 7.42 pH Units (7.32-7.45); ABG PO2 146 mmHg (85-104); ABG TCO2 29 mEq/L (20-26); Blood Gas Modality VC; Blood Gas PEEP 5 cm H2O; Blood Gas Respiration Rate 12; Blood Gas VT 520 cc
--- NOTE | 2017-12-13 07:04 | Emergency Department Note ---
Disposition Clinical Impression: Septic shock, Multifocal pneumonia, Ischemic cardiomyopathy, Lactic acidosis GI hemorrhage Qualifiers: GI bleed type/associated pathology: gastrointestinal hemorrhage with hematemesis Qualified Code(s): K92.0 - Hematemesis Atrial fibrillation Qualifiers: Atrial fibrillation type: permanent Qualified Code(s): I48.2 - Chronic atrial fibrillation Leukocytosis (leucocytosis) Qualifiers: Leukocytosis type: unspecified Qualified Code(s): D72.829 - Elevated white blood cell count, unspecified Disposition: Admitted As Inpatient Condition: Serious General Adult HPI - General Chief complaint: ED Fall Stated complaint: Upper GI Bleed Time Seen by Provider: 12/13/17 00:07 Source: patient, EMS Mode of arrival: EMS Limitations: age - History of Present Illness Pain Scale: 6 - Related Data Home Medications Medication Instructions Recorded Confirmed Omeprazole [PriLOSEC] 20 mg PO BID #0 02/15/15 04/18/17 Clopidogrel [Plavix] 75 mg PO QAM 03/01/15 04/18/17 Insulin ASPART [NovoLOG] 22 unit SQ TIDAC 03/01/15 04/18/17 Insulin Glargine,Hum.rec.anlog 55 unit SQ BID 03/01/15 04/18/17 [Lantus Solostar] Nitroglycerin [Nitrostat] 0.4 mg SL AD PRN 03/01/15 04/18/17 Albuterol Sulfate [Albuterol 2 puff IH QID PRN 01/26/16 04/18/17 Inhaler] Dextrose [Glucose] 12 gm PO DAILY PRN 01/26/16 04/18/17 Fluticasone Propionate Nasal 50 mcg NS DAILY PRN 01/26/16 04/18/17 [Flonase] Gemfibrozil [Lopid] 600 mg PO BID 01/26/16 04/18/17 Lisinopril [Zestril] 10 mg PO BID 01/26/16 04/18/17 Loratadine [Claritin] 10 mg PO DAILY 01/26/16 04/18/17 Metformin HCl [Glucophage] 1,000 mg PO QPM 01/26/16 04/18/17 Metformin HCl [Glucophage] 1,500 mg PO QAM 01/26/16 04/18/17 [place]-3 Acid Ethyl Esters [Lovaza] 1 gm PO DAILY 01/26/16 04/18/17 Potassium Chloride [K-Tab ER] 10 meq PO DAILY 01/26/16 04/18/17 Sodium Chloride [Rhinaris] 2 spray NS TID PRN 01/26/16 04/18/17 Budesonide/Formoterol 160/4.5 2 puff IH BID 04/18/17 04/18/17 [Symbicort 160/4.5] Spironolactone [Aldactone] 50 mg PO DAILY 04/18/17 04/18/17 Methocarbamol [Robaxin-750] 750 mg PO QID 04/19/17 04/19/17 Pregabalin [Lyrica] 50 mg PO TID 04/19/17 04/19/17 Previous Rx's Medication Instructions Recorded Albuterol Neb [AccuNeb] 1.25 mg IH Q4H PRN 30 Days inhsol 01/29/16 Aspirin 81 mg PO DAILY #30 tab.chew 04/22/17 Furosemide [Lasix] 20 mg PO BID #60 tablet 04/22/17 Isosorbide MONOnitrate (24 HR) 30 mg PO DAILY #30 tab.er.24h 04/22/17 [Imdur] Metoprolol [Lopressor] 50 mg PO BID #60 tablet 04/22/17 Allergies Allergy/AdvReac Type Severity Reaction Status Date / Time acetaminophen Allergy See Verified 02/15/15 01:08 [From Tylenol-Codeine] Comments codeine Allergy See Verified 02/15/15 01:08 [From Tylenol-Codeine] Comments iodine Allergy Vomiting Verified 02/15/15 01:08 Nortriptyline Allergy See Verified 02/15/15 01:08 Comments shellfish derived Allergy Vomiting Verified 02/15/15 01:08 Past Medical History - Past Medical History Medical history: Reports: atrial fibrillation, CHF, COPD, coronary artery disease, DVT, diabetes, GERD, hyperlipidemia, hypertension, myocardial infarction Surgical history: Reports: coronary bypass (CABG), other Psychiatric history: Reports: anxiety, PTSD - Social History Smoking Status: Current some day smoker Smokeless Tobacco Status: No Alcohol use: Reports: none Drug use: Reports: none Physical Exam - General Limitations: age General appearance: alert, in no apparent distress Course Vital Signs Temperature 99.7 F H 12/13/17 00:06 Pulse Rate 111 12/13/17 00:06 Respiratory Rate 25 12/13/17 00:06 Blood Pressure 119/62 12/13/17 00:06 O2 Sat by Pulse Oximetry 97 12/13/17 00:06 Temperature 98.1 F 12/13/17 06:44 Pulse Rate 114 12/13/17 06:44 Respiratory Rate 22 12/13/17 06:44 Blood Pressure 111/96 12/13/17 06:44 O2 Sat by Pulse Oximetry 100 12/13/17 05:03 Oxygen Delivery Oxygen Delivery Nasal Cannula Procedures - Central Line Placement Right IJ Central Line Inserted*: Yes Central Line Catheter Replacement*: No Central Line Insertion: emergent Consent Obtained: written consent Procedural Pause: verify patient name and date of , timeout performed per policy, lubna and assess the site, assemble equipment and verify supplies, perform hand hygiene Patient Placed on Monitor/Pulse Ox: Yes During the Procedure: clinician is wearing sterile gloves, cap, mask,& gown during insertion, sterile field and sterile technique are maintained, patient's face is covered with drape or mask and wearing a cap, everyone in room is wearing a mask Central Line Prep: Chlorhexidine scrub, sterile drapes applied Prep the Procedure Site: apply chloraprep to the skin using a back and forth scrubbing motion, apply chloraprep for 30 seconds (upper body), 1-2 min ( femoral sites), allow prep to dry, drape the patient with a full body drape Ultrasound Used for Placement: Yes Central Line Lumen Inserted: triple Post Procedure: sutured in place, good blood return, all ports aspirated, flushed, capped, sterile dressing applied, guide wire removed and visualized Post Procedure X-Ray: tip of catheter in good position, no pneumothorax seen Patient Tolerated Procedure: well, no complications Complications: none Name of Clinician Inserting Central Line: Sami Beauchamp Clinician Assisting/Completing Checklist: Tod Langford Date: 12/13/17 Time: 07:04 Medical Decision Making - Lab Data Result diagrams: 12/13/17 00:25 12/13/17 00:25 Lab Results 12/13/17 12/13/17 12/13/17 Range/Units 00:25 00:25 00:25 WBC 23.2 H (4.3-11.1) K/mcL RBC 3.87 L (4.19-5.50) M/mcL Hgb 12.7 L (12.9-16.9) g/dL Hct 39.0 (37.5-50.1) % MCV 100.8 H (83.0-100.0) fL MCH 32.8 (28.0-33.3) pg MCHC 32.6 (31.6-35.5) g/dL RDW 17.6 H (11.5-14.5) % Plt Count 395 (140-400) K/mcL MPV 9.0 L (9.4-12.4) fL Immature Gran % 0.6 (0-4) % Seg Neutrophils % 65.7 % Lymphocytes % 20.4 % Monocytes % 12.0 % Eosinophils % 1.0 % Basophils % 0.3 % Neutrophils # 15.2 H (1.6-8.9) K/mcL Lymphocytes # 4.7 H (0.6-4.6) K/mcL Monocytes # 2.8 H (0.0-1.3) K/mcL Eosinophils # 0.2 (0.0-0.6) K/mcL Basophils # 0.1 (0.0-0.2) K/mcL Nucleated RBCs/100 WBC 0.1 H (0) /100 WBC Platelet Estimate Slight increase H (Normal) Clumped Platelets Few A (Not Present) Large Platelets Present A (Not Present) Polychromasia 1+ A (Not Present) Anisocytosis 2+ A (Not Present) Macrocytosis Present A (Not Present) PT 13.6 H (9.4-12.1) Seconds INR 1.2 APTT 20.6 L (26.0-36.0) Seconds Sodium 134 L (136-145) mEq/L Potassium 4.3 (3.5-5.1) mEq/L Chloride 88 L (98-107) mEq/L Carbon Dioxide 29 (23-29) mEq/L BUN 34 H (8-23) mg/dL Creatinine 0.84 (0.70-1.30) mg/dL Est GFR ( Amer) > 60 (> 60) Est GFR (Non-Af Amer) > 60 (> 60) BUN/Creatinine Ratio 40 H (6-26) Glucose 270 H (70-105) mg/dL Calculated Osmolality 295 (280-300) Lactic Acid (0.5-2.2) mmol/L Calcium 9.4 (8.6-10.3) mg/dL Total Bilirubin 0.7 (0.3-1.0) mg/dL AST 30 (13-39) Units/L ALT 29 (7-52) Units/L Alkaline Phosphatase 67 (34-104) Units/L Troponin I 0.03 (< 0.04) ng/mL Serum Total Protein 7.2 (6.4-8.9) g/dL Albumin 3.3 L (3.5-5.7) g/dL Globulin 3.9 H (2.4-3.5) g/dL Albumin/Globulin Ratio 0.8 L (1.1-2.2) Urine Color (Yellow) Urine Clarity (Clear) Urine pH (5.0-8.0) pH Units Ur Specific [place] (1.010-1.025) Urine Protein (Neg-Trace) mg/dL Urine Glucose (UA) (Normal) mg/dL Urine Ketones (Negative) mg/dL Urine Blood (Negative) Urine Nitrite (Negative) Urine Bilirubin (Negative) Urine Urobilinogen (Normal) mg/dL Ur Leukocyte Esterase (Negative) Ur Culture Indicated? (NO) Blood Type Antibody Screen Crossmatch 12/13/17 12/13/17 12/13/17 Range/Units 00:25 00:50 02:30 WBC (4.3-11.1) K/mcL RBC (4.19-5.50) M/mcL Hgb (12.9-16.9) g/dL Hct (37.5-50.1) % MCV (83.0-100.0) fL MCH (28.0-33.3) pg MCHC (31.6-35.5) g/dL RDW (11.5-14.5) % Plt Count (140-400) K/mcL MPV (9.4-12.4) fL Immature Gran % (0-4) % Seg Neutrophils % % Lymphocytes % % Monocytes % % Eosinophils % % Basophils % % Neutrophils # (1.6-8.9) K/mcL Lymphocytes # (0.6-4.6) K/mcL Monocytes # (0.0-1.3) K/mcL Eosinophils # (0.0-0.6) K/mcL Basophils # (0.0-0.2) K/mcL Nucleated RBCs/100 WBC (0) /100 WBC Platelet Estimate (Normal) Clumped Platelets (Not Present) Large Platelets (Not Present) Polychromasia (Not Present) Anisocytosis (Not Present) Macrocytosis (Not Present) PT (9.4-12.1) Seconds INR APTT (26.0-36.0) Seconds Sodium (136-145) mEq/L Potassium (3.5-5.1) mEq/L Chloride (98-107) mEq/L Carbon Dioxide (23-29) mEq/L BUN (8-23) mg/dL Creatinine (0.70-1.30) mg/dL Est GFR ( Amer) (> 60) Est GFR (Non-Af Amer) (> 60) BUN/Creatinine Ratio (6-26) Glucose (70-105) mg/dL Calculated Osmolality (280-300) Lactic Acid 4.4 H* (0.5-2.2) mmol/L Calcium (8.6-10.3) mg/dL Total Bilirubin (0.3-1.0) mg/dL AST (13-39) Units/L ALT (7-52) Units/L Alkaline Phosphatase (34-104) Units/L Troponin I (< 0.04) ng/mL Serum Total Protein (6.4-8.9) g/dL Albumin (3.5-5.7) g/dL Globulin (2.4-3.5) g/dL Albumin/Globulin Ratio (1.1-2.2) Urine Color Yellow (Yellow) Urine Clarity Clear (Clear) Urine pH 6.0 (5.0-8.0) pH Units Ur Specific [place] 1.026 H (1.010-1.025) Urine Protein Negative (Neg-Trace) mg/dL Urine Glucose (UA) 250 H (Normal) mg/dL Urine Ketones Trace H (Negative) mg/dL Urine Blood Negative (Negative) Urine Nitrite Negative (Negative) Urine Bilirubin Negative (Negative) Urine Urobilinogen Normal (Normal) mg/dL Ur Leukocyte Esterase Negative (Negative) Ur Culture Indicated? NO (NO) Blood Type A POSITIVE Antibody Screen NEGATIVE Crossmatch See Detail
[2017-12-13] MEDS: Pantoprazole 40 MG in 0.9 % Sodium Chloride Mini Bag 100 ML IVC SCH ×4 (07:34→20:25)
[2017-12-13] MEDS: Octreotide 400 MCG in 0.9 % Sodium Chloride 100 ML IVC SCH ×3 (07:37→20:39)
[2017-12-13 07:38] LABS: Magnesium 1.8 mg/dL (1.6-2.6); Phosphorous 3.2 mg/dL (2.7-4.5)
--- NOTE | 2017-12-13 07:40 | Pulmonology Consult Note ---
<Bernard May W - Last Filed: 12/13/17 12:26> Date of Encounter: 12/13/17 Medications and Allergies Omeprazole [PriLOSEC] 20 mg PO BID #0 02/15/15 [History] Insulin ASPART [NovoLOG] 25 unit SQ TIDAC 03/01/15 [History] Insulin Glargine,Hum.rec.anlog [Lantus Solostar] 60 unit SQ BID 03/01/15 [ History] Nitroglycerin [Nitrostat] 0.4 mg SL AD PRN 03/01/15 [History] Albuterol Sulfate [Albuterol Inhaler] 2 puff IH QID PRN 01/26/16 [History] Dextrose [Glucose] 12 gm PO DAILY PRN 01/26/16 [History] Fluticasone Propionate Nasal [Flonase] 50 mcg NS DAILY PRN 01/26/16 [History] Gemfibrozil [Lopid] 600 mg PO BID 01/26/16 [History] Lisinopril [Zestril] 10 mg PO BID 01/26/16 [History] Loratadine [Claritin] 10 mg PO DAILY 01/26/16 [History] Metformin HCl [Glucophage] 1,000 mg PO QPM 01/26/16 [History] Metformin HCl [Glucophage] 1,500 mg PO QAM 01/26/16 [History] [place]-3 Acid Ethyl Esters [Lovaza] 1 gm PO DAILY 01/26/16 [History] Potassium Chloride [K-Tab ER] 10 meq PO DAILY 01/26/16 [History] Sodium Chloride [Rhinaris] 2 spray NS TID PRN 01/26/16 [History] Budesonide/Formoterol 160/4.5 [Symbicort 160/4.5] 2 puff IH BID 04/18/17 [ History] Spironolactone [Aldactone] 50 mg PO DAILY 04/18/17 [History] Methocarbamol [Robaxin-750] 750 mg PO QID 04/19/17 [History] Aspirin 81 mg PO DAILY #30 tab.chew 04/22/17 [Rx] Furosemide [Lasix] 20 mg PO BID #60 tablet 04/22/17 [Rx] Isosorbide MONOnitrate (24 HR) [Imdur] 30 mg PO DAILY #30 tab.er.24h 04/22/17 [ Rx] Metoprolol [Lopressor] 50 mg PO BID #60 tablet 04/22/17 [Rx] Pregabalin [Lyrica] 75 mg PO BID 12/13/17 [History] Tamsulosin [Flomax] 0.4 mg PO DAILY 12/13/17 [History] 3 Allergy/AdvReac Type Severity Reaction Status Date / Time acetaminophen Allergy See Verified 02/15/15 01:08 [From Tylenol-Codeine] Comments codeine Allergy See Verified 02/15/15 01:08 [From Tylenol-Codeine] Comments iodine Allergy Vomiting Verified 02/15/15 01:08 Nortriptyline Allergy See Verified 02/15/15 01:08 Comments shellfish derived Allergy Vomiting Verified 02/15/15 01:08 All Systems: The remainder of the systems were reviewed and are negative Physical Examination Vital Signs: Vital Signs, Last 4 Hours Temp Pulse Resp BP Pulse Ox 12/13/17 09:51 14 90/66 98 12/13/17 08:58 101.0 F H 14 94/77 100 12/13/17 08:16 14 81/61 99 12/13/17 07:35 14 97 12/13/17 07:22 12 102/68 12/13/17 06:44 98.1 F 114 22 111/96 Ventilator Settings Ventilator Settings: Ventilator Settings, Last 8 Hours Ventilator Tidal Volume 460 Setting Ventilator Tidal Volume 460 Setting Ventilator Tidal Volume 520 Setting Ventilator Respiratory Rate 14 Setting Ventilator Respiratory Rate 14 Setting Ventilator Respiratory Rate 12 Setting Actual Respiratory Rate 14 Actual Respiratory Rate 14 Positive End Expiratory 5 Pressure Positive End Expiratory 5 Pressure Positive End Expiratory 5 Pressure Peak Inspiratory Airway 23 Pressure Peak Inspiratory Airway 23 Pressure Results - Laboratory Findings CBC and BMP: 12/13/17 08:05 12/13/17 00:25 ABG ABG pH 7.42 pH Units (7.32-7.45) 12/13/17 05:38 ABG pCO2 44 mmHg (35-45) 12/13/17 05:38 ABG pO2 146 mmHg (85-104) H 12/13/17 05:38 ABG O2 Saturation 99 % (95-98) H 12/13/17 05:38 PT/INR, D-dimer PT 13.6 Seconds (9.4-12.1) H 12/13/17 00:25 Abnormal lab findings: Abnormal lab results WBC 22.4 K/mcL (4.3-11.1) H 12/13/17 08:05 RBC 3.86 M/mcL (4.19-5.50) L 12/13/17 08:05 Hgb 12.3 g/dL (12.9-16.9) L 12/13/17 08:05 Hct 37.2 % (37.5-50.1) L 12/13/17 08:05 RDW 18.1 % (11.5-14.5) H 12/13/17 08:05 MPV 8.7 fL (9.4-12.4) L 12/13/17 08:05 Neutrophils # 15.2 K/mcL (1.6-8.9) H 12/13/17 00:25 Lymphocytes # 4.7 K/mcL (0.6-4.6) H 12/13/17 00:25 Monocytes # 2.8 K/mcL (0.0-1.3) H 12/13/17 00:25 Nucleated RBCs/100 WBC 0.1 /100 WBC (0) H 12/13/17 00:25 Platelet Estimate Slight increase (Normal) H 12/13/17 00:25 Clumped Platelets Few (Not Present) A 12/13/17 00:25 Large Platelets Present (Not Present) A 12/13/17 00:25 Polychromasia 1+ (Not Present) A 12/13/17 00:25 Anisocytosis 2+ (Not Present) A 12/13/17 00:25 Macrocytosis Present (Not Present) A 12/13/17 00:25 PT 13.6 Seconds (9.4-12.1) H 12/13/17 00:25 APTT 20.6 Seconds (26.0-36.0) L 12/13/17 00:25 ABG pO2 146 mmHg (85-104) H 12/13/17 05:38 ABG HCO3 28 mEq/L (21-27) H 12/13/17 05:38 ABG Total CO2 29 mEq/L (20-26) H 12/13/17 05:38 ABG O2 Saturation 99 % (95-98) H 12/13/17 05:38 Sodium 134 mEq/L (136-145) L 12/13/17 00:25 Chloride 88 mEq/L (98-107) L 12/13/17 00:25 BUN 34 mg/dL (8-23) H 12/13/17 00:25 BUN/Creatinine Ratio 40 (6-26) H 12/13/17 00:25 Glucose 270 mg/dL (70-105) H 12/13/17 00:25 Hemoglobin A1c 8.0 % (-5.6) H 12/13/17 08:05 Albumin 3.3 g/dL (3.5-5.7) L 12/13/17 00:25 Globulin 3.9 g/dL (2.4-3.5) H 12/13/17 00:25 Albumin/Globulin Ratio 0.8 (1.1-2.2) L 12/13/17 00:25 Ur Specific [place] 1.026 (1.010-1.025) H 12/13/17 02:30 Urine Glucose (UA) 250 mg/dL (Normal) H 12/13/17 02:30 Urine Ketones Trace mg/dL (Negative) H 12/13/17 02:30 - Clinical Findings Intake & Output: Intake & Output 12/12/17 12/13/17 12/13/17 23:59 07:59 15:59 Intake Total 644 / 2744 Balance 644 / 2744 Consult Discharge Plan - Plan [facility]errals: [facility] [Primary Care Provider] - - Attending Attestation I examined this patient and my medical decision-making was reviewed with the Resident Physician. I agree with the documented findings, disposition and treatment plan as described except to the extent set forth below. We independently had [id number] contact with the patient I spent 32min of Critical Care time with this patient. It involved decision making of high complexity to assess, manipulate, and support vital organ system failure and/or to prevent further life threatening deterioration of the patient' s condition. The time involved in the performance of separately reportable procedures was not counted toward critical care time. Patient seen and examined at bedside Labs, radiology, chart personally reviewed. Management was reviewed during multidisciplinary critical care rounds. BELT LACER: Patient is sedated on the vent wean sedation for goal [place] 2-3. Prior to intubation was awake and alert in no focal deficit per ED note Pulm: Acute respiratory failure complicated by pneumonia on vent acceptable gas exchange not a candidate for spontaneous breathing trial because of active hemorrhaging and hemodynamic instability we will monitor this daily continue VAP bundle Cards: Hypovolemic shock secondary to gastrointestinal hemorrhage is volume resuscitation with colloid at this time previously with crystalloid will also need blood products has a history coronary artery disease without evidence of active ischemia based upon initial troponin will trend. AFib with RVR May need vasopressor support with phenylephrine. Consider Amiodarone load if persistent Patient has access with a central venous catheter as well as peripheral IV. Lactate elevated on admission this has normalized GI: Gastrointestinal hemorrhage suspected gastritis or ulceration cannot exclude possibility of esophageal varices although no clear evidence of cirrhosis based upon medical record patient is on PPI infusion as well as octreotide general surgery is evaluating the patient Planning on emergent endoscopy PEG tube and OG to suction Nutrition: Nothing by mouth for now patient has a big tube at baseline Renal: UOP Monitored, Cont to Trend sCr and monitor Electrolytes. ID: Suspected pneumonia based upon radiographic findings likely aspiration is being covered with antimicrobials cultures pending Heme/Onc: Acute blood loss anemia secondary to gastrointestinal hemorrhage and goal transfusion hemoglobin greater than 7 patient was taking Plavix so will give a unit of the platelets no evidence of coagulopathy Mechanical DVT prophylaxis given Endo: Glucose Monitored Integ/MSK: Skin Care per routine ICU Nursing Protocol to prevent ulcers. Lines: All lines examined without evidence of infection : Dispo: ICU for critical illness CODE: Full <Manny Peralta N - Last Filed: 12/13/17 17:07> Date of Encounter: 12/13/17 Time of Encounter: 07:40 Assessment and Plan (1) Hypovolemic shock Current Visit: Yes Status: Acute likely secondary to large volume blood loss secondary to GI bleed Patient underwent emergent endoscopy which was negative for any acute evidence of bleeding duodenal biopsy was obtained fluid resuscitation. patient's I&Os are +4,800 and he received PRBCs. Hgb stable at this time, will trend On phenylephrine for vasopressor support of blood pressure (2) GI hemorrhage Current Visit: Yes Status: Acute acute blood loss secondary to upper GI bleed EGD negative for any acute signs of bleeding Continue to trend H&H and transfuse as necessary Fluid resuscitation to replete intravascular volume trend lactic acid and troponin Qualifiers: GI bleed type/associated pathology: gastrointestinal hemorrhage with hematemesis Qualified Code(s): K92.0 - Hematemesis (3) Acute respiratory failure Current Visit: Yes Status: Acute complicated by hypovolemic shock and multifocal pneumonia currently on antibiotic therapy and is intubated for ventilator support Qualifiers: Qualified Code(s): J96.00 - Acute respiratory failure, unspecified whether with hypoxia or hypercapnia (4) Atrial fibrillation Current Visit: Yes Status: Chronic history of afib vasopressor switched to phenylephrine may consider amiodarone drip Qualifiers: Atrial fibrillation type: permanent Qualified Code(s): I48.2 - Chronic atrial fibrillation (5) DVT prophylaxis Current Visit: Yes Status: Acute mechanical SCDs History of Present Illness Consult date: 12/13/17 Requesting physician: Lars Olson Reason for consult: other (hypovolemic shock) Chief complaint: hematemesis History of present illness: 67 year old man with multiple comorbidities including afib on plavix presented from the [facility] with hematemesis. He was inubated, received several units PRBCs and fluid resuscitation. Underwent emergent EGD, no obvious signs of ulcers or bleeding, but duodenal biopsy was obtained for pathology. On admission a CT scan was obtained that showed evidence of multifocal pneumonia. Patient had a lactic acid of 4.4 on admission as well as tachycardia, tachypnea, and an elevated white blood cell count. The lactic acid has decreased and no signs of active bleeding at this time but the patient remains critical with need for constant hemodynamic monitoring. Past Med Surg Social Fam HX - Past Medical History Medical history: atrial fibrillation, CHF, COPD, coronary artery disease, DVT, diabetes, GERD, hyperlipidemia, hypertension, myocardial infarction Additional medical history: dysphagia. tremor Psychiatric history: anxiety, PTSD - Past Surgical History Surgical History: coronary bypass (CABG), other Additional surgical history: two rods placed in lower back, plate placement in neck, PEG - Social History Smoking Status: Current some day smoker Smokeless Tobacco Status: No Alcohol use: none Drug use: none - Family History Mother Adopted: No Family Member Ethnicity: Non- Twin of Family Member: Yes Living Status: Hx Family Cardiac Disorders: No Hx Family Respiratory Disorders: No Hx Family Cancer: Yes Hx Family GI Disorders: No Hx Family Endocrine Disorder: No Hx Family Neuromuscular Disorders: No Hx Family Neurologic Disorders: No Hx Family HEENT Disorders: Yes Hx Family Autoimmune Disorders: No ROS unobtainable: due to endotracheal tube All Systems: The remainder of the systems were reviewed and are negative Physical Examination Vital Signs: Vital Signs, Last 4 Hours Temp Pulse Resp BP 12/13/17 07:22 12 102/68 12/13/17 06:44 98.1 F 114 22 111/96 12/13/17 05:35 98.9 F 146 16 136/100 General appearance: other (intubated) Auscultation: bilateral: diminished breath sounds Cardiovascular: other (irregular rate, tachycardic) Gastrointestinal: hypoactive bowel sounds Integumentary: normal Extremities: no edema Musculoskeletal: other (lower extremity atrophy) Ventilator Settings Ventilator Settings: Ventilator Settings, Last 8 Hours Ventilator Tidal Volume 520 Setting Ventilator Respiratory Rate 12 Setting Positive End Expiratory 5 Pressure Results - Laboratory Findings CBC and BMP: 12/13/17 08:05 12/13/17 00:25 ABG ABG pH 7.42 pH Units (7.32-7.45) 12/13/17 05:38 ABG pCO2 44 mmHg (35-45) 12/13/17 05:38 ABG pO2 146 mmHg (85-104) H 12/13/17 05:38 ABG O2 Saturation 99 % (95-98) H 12/13/17 05:38 PT/INR, D-dimer PT 13.6 Seconds (9.4-12.1) H 12/13/17 00:25 Abnormal lab findings: Abnormal lab results WBC 23.2 K/mcL (4.3-11.1) H 12/13/17 00:25 RBC 3.87 M/mcL (4.19-5.50) L 12/13/17 00:25 Hgb 12.7 g/dL (12.9-16.9) L 12/13/17 00:25 MCV 100.8 fL (83.0-100.0) H 12/13/17 00:25 RDW 17.6 % (11.5-14.5) H 12/13/17 00:25 MPV 9.0 fL (9.4-12.4) L 12/13/17 00:25 Neutrophils # 15.2 K/mcL (1.6-8.9) H 12/13/17 00:25 Lymphocytes # 4.7 K/mcL (0.6-4.6) H 12/13/17 00:25 Monocytes # 2.8 K/mcL (0.0-1.3) H 12/13/17 00:25 Nucleated RBCs/100 WBC 0.1 /100 WBC (0) H 12/13/17 00:25 Platelet Estimate Slight increase (Normal) H 12/13/17 00:25 Clumped Platelets Few (Not Present) A 12/13/17 00:25 Large Platelets Present (Not Present) A 12/13/17 00:25 Polychromasia 1+ (Not Present) A 12/13/17 00:25 Anisocytosis 2+ (Not Present) A 12/13/17 00:25 Macrocytosis Present (Not Present) A 12/13/17 00:25 PT 13.6 Seconds (9.4-12.1) H 12/13/17 00:25 APTT 20.6 Seconds (26.0-36.0) L 12/13/17 00:25 ABG pO2 146 mmHg (85-104) H 12/13/17 05:38 ABG HCO3 28 mEq/L (21-27) H 12/13/17 05:38 ABG Total CO2 29 mEq/L (20-26) H 12/13/17 05:38 ABG O2 Saturation 99 % (95-98) H 12/13/17 05:38 Sodium 134 mEq/L (136-145) L 12/13/17 00:25 Chloride 88 mEq/L (98-107) L 12/13/17 00:25 BUN 34 mg/dL (8-23) H 12/13/17 00:25 BUN/Creatinine Ratio 40 (6-26) H 12/13/17 00:25 Glucose 270 mg/dL (70-105) H 12/13/17 00:25 Lactic Acid 4.4 mmol/L (0.5-2.2) H* 12/13/17 00:50 Albumin 3.3 g/dL (3.5-5.7) L 12/13/17 00:25 Globulin 3.9 g/dL (2.4-3.5) H 12/13/17 00:25 Albumin/Globulin Ratio 0.8 (1.1-2.2) L 12/13/17 00:25 Ur Specific [place] 1.026 (1.010-1.025) H 12/13/17 02:30 Urine Glucose (UA) 250 mg/dL (Normal) H 12/13/17 02:30 Urine Ketones Trace mg/dL (Negative) H 12/13/17 02:30 - Clinical Findings Intake & Output: Intake & Output 12/12/17 12/12/17 12/13/17 15:59 23:59 07:59 Intake Total 644 / 2744 Balance 644 / 2744
--- NOTE | 2017-12-13 08:03 | General Surgery Consult Note ---
Date of Encounter: 12/13/17 Time of Encounter: 07:58 Assessment and Plan (1) UGIB (upper gastrointestinal bleed) Current Visit: Yes Status: Acute Based upon his evaluation appears that the active GI bleeding has stopped at this time. I do think would be appropriate to proceed with EGD. Will obtain consent from family members and then afterwards proceed with an EGD today. History of Present Illness Consult date: 12/13/17 Reason for consult: other (hematemesis) Requesting physician: Sami Beauchamp History of present illness: The patient is a 67-year-old male with a past medical history significant for diabetes mellitus, congestive heart failure, major fibrillation on Plavix who presented himself to the [facility] secondary GI bleed. He had a previous CVA and has a G-tube placed and was found having blood from his nose and mouth and also around the G-tube. Per the records he was in the emergency room tachycardic and was transferred to the [facility]. At that time he was awake stating that he was having bleeding from his mouth earlier per the records. He was emergently intubated and started on Protonix. He has since we have and transported to the ICU in stable guarded condition. Currently a G- tube is placed with no blood within the OG tube consistent with cessation of active GI bleed. It was reported that he had vomited blood and had approximately 2-300+ of blood in the NG tube canister in the emergency room. No report of any type of abdominal pain symptoms. Past Med Surg Social Fam HX - Past Medical History Medical history: atrial fibrillation, CHF, COPD, coronary artery disease, DVT, diabetes, GERD, hyperlipidemia, hypertension, myocardial infarction Additional medical history: dysphagia. tremor Psychiatric history: anxiety, PTSD - Past Surgical History Surgical History: coronary bypass (CABG), other Additional surgical history: two rods placed in lower back, plate placement in neck, PEG - Social History Smoking Status: Current some day smoker Smokeless Tobacco Status: No Alcohol use: none Drug use: none - Family History Mother Adopted: No Family Member Ethnicity: Non- Twin of Family Member: Yes Living Status: Hx Family Cardiac Disorders: No Hx Family Respiratory Disorders: No Hx Family Cancer: Yes Hx Family GI Disorders: No Hx Family Endocrine Disorder: No Hx Family Neuromuscular Disorders: No Hx Family Neurologic Disorders: No Hx Family HEENT Disorders: Yes Hx Family Autoimmune Disorders: No Medications and Allergies Omeprazole [PriLOSEC] 20 mg PO BID #0 02/15/15 [History] Clopidogrel [Plavix] 75 mg PO QAM 03/01/15 [History] Insulin ASPART [NovoLOG] 22 unit SQ TIDAC 03/01/15 [History] Insulin Glargine,Hum.rec.anlog [Lantus Solostar] 55 unit SQ BID 03/01/15 [ History] Nitroglycerin [Nitrostat] 0.4 mg SL AD PRN 03/01/15 [History] Albuterol Sulfate [Albuterol Inhaler] 2 puff IH QID PRN 01/26/16 [History] Dextrose [Glucose] 12 gm PO DAILY PRN 01/26/16 [History] Fluticasone Propionate Nasal [Flonase] 50 mcg NS DAILY PRN 01/26/16 [History] Gemfibrozil [Lopid] 600 mg PO BID 01/26/16 [History] Lisinopril [Zestril] 10 mg PO BID 01/26/16 [History] Loratadine [Claritin] 10 mg PO DAILY 01/26/16 [History] Metformin HCl [Glucophage] 1,000 mg PO QPM 01/26/16 [History] Metformin HCl [Glucophage] 1,500 mg PO QAM 01/26/16 [History] [place]-3 Acid Ethyl Esters [Lovaza] 1 gm PO DAILY 01/26/16 [History] Potassium Chloride [K-Tab ER] 10 meq PO DAILY 01/26/16 [History] Sodium Chloride [Rhinaris] 2 spray NS TID PRN 01/26/16 [History] Albuterol Neb [AccuNeb] 1.25 mg IH Q4H PRN 30 Days inhsol 01/29/16 [Rx] Budesonide/Formoterol 160/4.5 [Symbicort 160/4.5] 2 puff IH BID 04/18/17 [ History] Spironolactone [Aldactone] 50 mg PO DAILY 04/18/17 [History] Methocarbamol [Robaxin-750] 750 mg PO QID 04/19/17 [History] Pregabalin [Lyrica] 50 mg PO TID 04/19/17 [History] Aspirin 81 mg PO DAILY #30 tab.chew 04/22/17 [Rx] Furosemide [Lasix] 20 mg PO BID #60 tablet 04/22/17 [Rx] Isosorbide MONOnitrate (24 HR) [Imdur] 30 mg PO DAILY #30 tab.er.24h 04/22/17 [ Rx] Metoprolol [Lopressor] 50 mg PO BID #60 tablet 04/22/17 [Rx] 3 Allergy/AdvReac Type Severity Reaction Status Date / Time acetaminophen Allergy See Verified 02/15/15 01:08 [From Tylenol-Codeine] Comments codeine Allergy See Verified 02/15/15 01:08 [From Tylenol-Codeine] Comments iodine Allergy Vomiting Verified 02/15/15 01:08 Nortriptyline Allergy See Verified 02/15/15 01:08 Comments shellfish derived Allergy Vomiting Verified 02/15/15 01:08 Review of Systems All systems PM: reviewed and no additional remarkable complaints except as stated All systems PM: The remainder of the systems were reviewed and are negative General Surgery Exam Initial Vital Signs Temp Pulse Resp BP Pulse Ox 99.7 F H 111 25 119/62 97 12/13/17 00:06 12/13/17 00:06 12/13/17 00:06 12/13/17 00:06 12/13/17 00:06 - Eyes pinpoint pupil (Patient intubated) - Neck no masses, trachea midline - Respiratory other (Positive rhonchi and rales bilaterally.) - Cardiovascular Cardiovascular exam: Present: tachycardia, irregular rhythm - Abdomen Abdomen general surgery: Present: bowel sounds present (Scant bowel sounds present), soft, non tender (Unable to assess presence of tenderness on examination due to intubated status G-tube in place) - Integumentary Integumentary general surgery: Present: warm and dry - Neurologic Present: other (Unable to assess secondary to intubation and sedation) - Musculoskeletal Present: other (No contracture evident however patient has chronic venous stasis changes bilateral lower extremities. There is also decreased musculature from the calf down to the ankle as well as lack of hair. Legs appear somewhat atrophied) Exam Initial Vital Signs Temp Pulse Resp BP Pulse Ox 99.7 F H 111 25 119/62 97 12/13/17 00:06 12/13/17 00:06 12/13/17 00:06 12/13/17 00:06 12/13/17 00:06 Results - Labs 12/13/17 00:25 12/13/17 00:25 Abnormal lab results WBC 23.2 K/mcL (4.3-11.1) H 12/13/17 00:25 RBC 3.87 M/mcL (4.19-5.50) L 12/13/17 00:25 Hgb 12.7 g/dL (12.9-16.9) L 12/13/17 00:25 MCV 100.8 fL (83.0-100.0) H 12/13/17 00:25 RDW 17.6 % (11.5-14.5) H 12/13/17 00:25 MPV 9.0 fL (9.4-12.4) L 12/13/17 00:25 Neutrophils # 15.2 K/mcL (1.6-8.9) H 12/13/17 00:25 Lymphocytes # 4.7 K/mcL (0.6-4.6) H 12/13/17 00:25 Monocytes # 2.8 K/mcL (0.0-1.3) H 12/13/17 00:25 Nucleated RBCs/100 WBC 0.1 /100 WBC (0) H 12/13/17 00:25 Platelet Estimate Slight increase (Normal) H 12/13/17 00:25 Clumped Platelets Few (Not Present) A 12/13/17 00:25 Large Platelets Present (Not Present) A 12/13/17 00:25 Polychromasia 1+ (Not Present) A 12/13/17 00:25 Anisocytosis 2+ (Not Present) A 12/13/17 00:25 Macrocytosis Present (Not Present) A 12/13/17 00:25 PT 13.6 Seconds (9.4-12.1) H 12/13/17 00:25 APTT 20.6 Seconds (26.0-36.0) L 12/13/17 00:25 ABG pO2 146 mmHg (85-104) H 12/13/17 05:38 ABG HCO3 28 mEq/L (21-27) H 12/13/17 05:38 ABG Total CO2 29 mEq/L (20-26) H 12/13/17 05:38 ABG O2 Saturation 99 % (95-98) H 12/13/17 05:38 Sodium 134 mEq/L (136-145) L 12/13/17 00:25 Chloride 88 mEq/L (98-107) L 12/13/17 00:25 BUN 34 mg/dL (8-23) H 12/13/17 00:25 BUN/Creatinine Ratio 40 (6-26) H 12/13/17 00:25 Glucose 270 mg/dL (70-105) H 12/13/17 00:25 Albumin 3.3 g/dL (3.5-5.7) L 12/13/17 00:25 Globulin 3.9 g/dL (2.4-3.5) H 12/13/17 00:25 Albumin/Globulin Ratio 0.8 (1.1-2.2) L 12/13/17 00:25 Ur Specific [place] 1.026 (1.010-1.025) H 12/13/17 02:30 Urine Glucose (UA) 250 mg/dL (Normal) H 12/13/17 02:30 Urine Ketones Trace mg/dL (Negative) H 12/13/17 02:30 All other labs normal. - Imaging CT scan - abdomen: report reviewed, image reviewed (Scan images report reviewed by me. Noted left-sided adrenal mass. Appears to be material within the proximal stomach likely consistent with clot in its of free air. No free fluid. ) CT scan - chest: report reviewed, image reviewed (Images were reviewed by me. Bilateral infiltrates noted) Consult Discharge Plan - Plan Referrals: [facility] [Primary Care Provider] -
[2017-12-13] MEDS ORDERED: Albumin Human 5% 25.0 GM/500 ML VIAL ONE (08:07)
[2017-12-13] MEDS ORDERED: Dexmedetomidine HCl 400 MCG/100 ML MLS IVC ONE (08:16)
[2017-12-13] MEDS: Ipratropium/Albuterol Neb 3 ML IH SCH ×5 (08:16→23:29)
[2017-12-13 08:17] LABS: Hematocrit 37.2 % (37.5-50.1); Hemoglobin 12.3 g/dL (12.9-16.9); Mean Corpuscular HGB Conc 33.1 g/dL (31.6-35.5); Mean Corpuscular Hemoglobin 31.9 pg (28.0-33.3); Mean Corpuscular Volume 96.4 fL (83.0-100.0); Mean Platelet Volume 8.7 fL (9.4-12.4); Platelet Count 255 K/mcL (140-400); Red Blood Count 3.86 M/mcL (4.19-5.50); Red Cell Distribution Width 18.1 % (11.5-14.5)
[2017-12-13 08:27] LABS: Estimated Average Glucose 183 mg/dl
[2017-12-13] MEDS ORDERED: Dexmedetomidine HCl 400 MCG/100 ML MLS IVC SCH (08:30)
[2017-12-13] MEDS: Piperacillin/Tazobactam 3.375 GM in 0.9 % Sodium Chloride Mini Bag 100 ML IVPB SCH ×2 (08:37→16:11)
[2017-12-13] MEDS: Insulin LISPRO 300 UNITS/3 ML VIAL SQ SCH ×4 (08:38→18:40)
[2017-12-13] MEDS: Chlorhexidine Rinse 15 ML MOUTHWASH MM SCH ×2 (08:40→22:07)
[2017-12-13] MEDS ORDERED: 0.9 % Sodium Chloride 250 ML ONE (08:53)
[2017-12-13] MEDS: Lacri-Lube 3.5 GM TUBE BOTH EYES SCH ×3 (10:06→15:57)
[2017-12-13] MEDS ORDERED: Norepinephrine 4 MG in D5% in Water 250 ML IVC SCH (11:15)
[2017-12-13] MEDS: Phenylephrine 10 MG in D5% in Water 250 ML IVC SCH ×3 (11:47→20:37)
--- NOTE | 2017-12-13 12:23 | Event Note ---
Date of Encounter: 12/13/17 Time of Encounter: 12:22 EGD performed at the bedside. Noted erythema patchy nature in the stomach which likely may be related to the OG tube placement. Biopsies obtained. Placement of the PEG was noted. No obvious ulcer identified. Inflammation of the first portion of the duodenum identified as well which was biopsied. No duodenal ulcers identified. No obvious clot in the stomach. Agree with placement of PEG tube to gravity. Continue Protonix and Carafate via PEG tube.
[2017-12-13] MEDS ORDERED: *HR* Etomidate 40 MG/20 ML VIAL IVP ONE (12:30)
[2017-12-13] MEDS ORDERED: *HR* Rocuronium Bromide 100 MG/10 ML VIAL IVC ONE (12:30)
--- NOTE | 2017-12-13 15:11 | Pre-Sedation Evaluation ---
Pre-sedation evaluation - Pre-sedation checklist Procedure: left heart cath Recent Vitals: Last Vital Signs Temp 100.4 F H 12/13/17 11:17 Pulse 111 12/13/17 14:00 Resp 14 12/13/17 14:00 BP 102/73 12/13/17 14:00 Pulse Ox 95 12/13/17 14:00 H&P (including ROS) documented in medical record: Yes Previous reaction to sedatives/anesthetics: No Dietary Status: No solid food in preceding 4 hrs and no liquid in preceding 2 hrs Airway Assessment: Patient can open mouth completely, TMJ function normal Dentition: poor dentition Possible difficult airway: No ASA Classification *see protocol: CLASS IV-Severe systemic disease/constant threat to pt's life Plan of Care: Pt appropriate candidate for procedure/moderate/conscious sedation Cardiac Registry (Cardio Only) - Functional Capacity - Clincal Frailty Scale
[2017-12-13 19:17] LABS: Basophils % 0.3 %; Eosinophils % 0.5 %; Lymphocytes % 11.3 %; Nucleated Red Blood Cells 0.3 /100 WBC (0)
[2017-12-13 19:19] LABS: Basophils # 0.1 K/mcL (0.0-0.2); Eosinophils # 0.1 K/mcL (0.0-0.6); Hematocrit 34.1 % (37.5-50.1); Hemoglobin 11.4 g/dL (12.9-16.9); Immature Granulocytes % 0.8 % (0-4); Mean Corpuscular HGB Conc 33.4 g/dL (31.6-35.5); Mean Corpuscular Hemoglobin 32.6 pg (28.0-33.3); Mean Corpuscular Volume 97.4 fL (83.0-100.0); Mean Platelet Volume 9.1 fL (9.4-12.4); Monocytes # 2.5 K/mcL (0.0-1.3); Monocytes % 9.3 %; Platelet Count 301 K/mcL (140-400); Red Cell Distribution Width 18.7 % (11.5-14.5); Segmented Neutrophils % 77.8 %
[2017-12-13 19:39] LABS: Alanine Aminotransferase 18 Units/L (7-52); Albumin/Globulin Ratio 1.1 (1.1-2.2); Alkaline Phosphatase 41 Units/L (34-104); Aspartate Amino Transferase 20 Units/L (13-39); BUN/Creatinine Ratio 36 (6-26); Bilirubin,Total 0.9 mg/dL (0.3-1.0); Blood Urea Nitrogen 24 mg/dL (8-23); Calcium 8.3 mg/dL (8.6-10.3); Carbon Dioxide 27 mEq/L (23-29); Chloride 106 mEq/L (98-107); Globulin 2.7 g/dL (2.4-3.5); Glucose 69 mg/dL (70-105); Osmolality,Calculated 284 (280-300); Potassium 3.5 mEq/L (3.5-5.1); Sodium 136 mEq/L (136-145); Total Protein 5.7 g/dL (6.4-8.9); eGFR For Non-African Americans > 60 (> 60)
[2017-12-13 19:42] LABS: Neutrophils # 20.6 K/mcL (1.6-8.9)
[2017-12-13 19:43] LABS: Platelet Estimate Normal (Normal)
[2017-12-13] MEDS: Dexmedetomidine HCl 400 MCG/100 ML MLS IVC SCH (19:44)
[2017-12-13 19:47] LABS: Troponin I 0.29 ng/mL (< 0.04)
[2017-12-13] MEDS ORDERED: Desitin (Zinc Oxide) 56 GM TUBE TP PRN (23:19)
[2017-12-14] MEDS: Lacri-Lube 3.5 GM TUBE BOTH EYES SCH ×8 (00:10→19:53)
[2017-12-14] MEDS ORDERED: Amiodarone Premix 360 MG/200 ML BAG IVC SCH (00:15)
[2017-12-14] MEDS: Insulin LISPRO 300 UNITS/3 ML VIAL SQ SCH ×5 (00:19→23:34)
[2017-12-14] MEDS: Phenylephrine 10 MG in D5% in Water 250 ML IVC SCH (00:25)
[2017-12-14] MEDS: Piperacillin/Tazobactam 3.375 GM in 0.9 % Sodium Chloride Mini Bag 100 ML IVPB SCH ×4 (00:26→23:09)
[2017-12-14] MEDS: Pantoprazole 40 MG in 0.9 % Sodium Chloride Mini Bag 100 ML IVC SCH ×2 (00:30→06:20)
[2017-12-14 01:30] LABS: Basophils # 0.1 K/mcL (0.0-0.2); Basophils % 0.3 %; Eosinophils % 0.6 %; Hematocrit 34.2 % (37.5-50.1); Hemoglobin 11.2 g/dL (12.9-16.9); Immature Granulocytes % 0.7 % (0-4); Lymphocytes # 3.1 K/mcL (0.6-4.6); Lymphocytes % 12.2 %; Mean Corpuscular HGB Conc 32.7 g/dL (31.6-35.5); Mean Corpuscular Hemoglobin 32.3 pg (28.0-33.3); Mean Corpuscular Volume 98.6 fL (83.0-100.0); Mean Platelet Volume 8.7 fL (9.4-12.4); Monocytes # 2.4 K/mcL (0.0-1.3); Monocytes % 9.5 %; Nucleated Red Blood Cells 0.3 /100 WBC (0); Platelet Count 269 K/mcL (140-400); Red Blood Count 3.47 M/mcL (4.19-5.50); Red Cell Distribution Width 18.9 % (11.5-14.5); Segmented Neutrophils % 76.7 %
[2017-12-14 01:32] LABS: Eosinophils # 0.2 K/mcL (0.0-0.6); Neutrophils # 19.3 K/mcL (1.6-8.9)
[2017-12-14 01:48] LABS: Platelet Estimate Normal (Normal)
[2017-12-14 01:53] LABS: Alanine Aminotransferase 17 Units/L (7-52); Albumin 2.8 g/dL (3.5-5.7); Alkaline Phosphatase 45 Units/L (34-104); Aspartate Amino Transferase 18 Units/L (13-39); BUN/Creatinine Ratio 29 (6-26); Bilirubin,Total 0.9 mg/dL (0.3-1.0); Blood Urea Nitrogen 20 mg/dL (8-23); Calcium 8.4 mg/dL (8.6-10.3); Carbon Dioxide 27 mEq/L (23-29); Chloride 103 mEq/L (98-107); Globulin 2.8 g/dL (2.4-3.5); Glucose 157 mg/dL (70-105); Osmolality,Calculated 290 (280-300); Potassium 3.2 mEq/L (3.5-5.1); Sodium 137 mEq/L (136-145); Total Protein 5.6 g/dL (6.4-8.9); eGFR For Non-African Americans > 60 (> 60)
[2017-12-14 01:57] LABS: Troponin I 0.14 ng/mL (< 0.04)
[2017-12-14] MEDS: Dexmedetomidine HCl 400 MCG/100 ML MLS IVC SCH (03:00)
[2017-12-14] MEDS: Propofol 500 MG/50 ML INFUS..BTL IVC SCH ×2 (03:01→19:15)
[2017-12-14] MEDS: Ipratropium/Albuterol Neb 3 ML IH SCH ×6 (03:44→23:58)
[2017-12-14 05:54] LABS: Basophils % 0.4 %; Immature Granulocytes % 0.9 % (0-4); Lymphocytes % 7.7 %; Mean Platelet Volume 8.7 fL (9.4-12.4); Nucleated Red Blood Cells 0.2 /100 WBC (0)
[2017-12-14 05:56] LABS: Basophils # 0.1 K/mcL (0.0-0.2); Eosinophils # 0.2 K/mcL (0.0-0.6); Eosinophils % 0.7 %; Hematocrit 33.3 % (37.5-50.1); Hemoglobin 10.9 g/dL (12.9-16.9); Mean Corpuscular HGB Conc 32.7 g/dL (31.6-35.5); Mean Corpuscular Hemoglobin 32.1 pg (28.0-33.3); Mean Corpuscular Volume 97.9 fL (83.0-100.0); Monocytes # 2.8 K/mcL (0.0-1.3); Monocytes % 10.9 %; Neutrophils # 20.3 K/mcL (1.6-8.9); Platelet Count 272 K/mcL (140-400); Red Cell Distribution Width 18.7 % (11.5-14.5); Segmented Neutrophils % 79.4 %
[2017-12-14] MEDS: Octreotide 400 MCG in 0.9 % Sodium Chloride 100 ML IVC SCH ×2 (06:07→14:11)
[2017-12-14 06:15] LABS: Platelet Estimate Normal (Normal)
[2017-12-14 06:20] LABS: Alanine Aminotransferase 17 Units/L (7-52); Albumin 2.8 g/dL (3.5-5.7); Albumin/Globulin Ratio 0.9 (1.1-2.2); Alkaline Phosphatase 49 Units/L (34-104); Aspartate Amino Transferase 16 Units/L (13-39); BUN/Creatinine Ratio 30 (6-26); Bilirubin,Total 0.9 mg/dL (0.3-1.0); Blood Urea Nitrogen 18 mg/dL (8-23); Calcium 8.4 mg/dL (8.6-10.3); Carbon Dioxide 26 mEq/L (23-29); Chloride 102 mEq/L (98-107); Glucose 244 mg/dL (70-105); Osmolality,Calculated 288 (280-300); Potassium 3.5 mEq/L (3.5-5.1); Sodium 134 mEq/L (136-145); Total Protein 5.8 g/dL (6.4-8.9); eGFR For Non-African Americans > 60 (> 60)
[2017-12-14 06:26] LABS: Troponin I 0.08 ng/mL (< 0.04)
--- NOTE | 2017-12-14 06:47 | Pulmonology Progress Note ---
Date of Encounter: 12/14/17 Time of Encounter: 06:47 Assessment and Plan (1) Acute respiratory failure Current Visit: Yes Status: Acute Patient was intubated after having massive hematemesis. Spontaneous breathing trial today with favorable parameters plan for liberation Wean FiO2 to keep saturation around 92% Qualifiers: Qualified Code(s): J96.00 - Acute respiratory failure, unspecified whether with hypoxia or hypercapnia (2) Atrial fibrillation with rapid ventricular response Current Visit: Yes Status: Acute Stop amiodarone Restart home beta franny and calcium channel franny titrate as tolerated Not a candidate for anticoagulation currently because of GI bleeding (3) CHF (congestive heart failure) Current Visit: No Status: Acute Appears mildly volume overloaded on examination today this is in some part related to volume resuscitation and blood products given yesterday Lasix scheduled Strict monitoring of intake and output Daily monitoring of electrolytes and serum creatinine Qualifiers: Qualified Code(s): I50.22 - Chronic systolic (congestive) heart failure (4) DM2 (diabetes mellitus, type 2) Current Visit: Yes Status: Chronic Continue sliding scale insulin coverage may need to add basal coverage based upon blood glucose readings once taking enteral nutrition Qualifiers: Diabetes mellitus baggage handler insulin use: with prison use Diabetes mellitus complication status: with circulatory complication Diabetes mellitus complication detail: with other circulatory complications Qualified Code(s): E11.59 - Type 2 diabetes mellitus with other circulatory complications; Z79.4 - professional fee coder (current) use of insulin; Z79.4 - professional fee coder (current) use of insulin; Z79.4 - professional fee coder (current) use of insulin; Z79.4 - [facility] (current) use of insulin (5) CAD (coronary artery disease) Current Visit: No Status: Chronic Ration has a history of CAD status post CABG and also PCI with stent placement. Holding dual antiplatelet therapy because of gastrointestinal hemorrhage Continue beta franny Continue statin Qualifiers: Coronary Disease-Associated Artery/Lesion type: bypass graft, autologous vein Associated angina: without angina Qualified Code(s): I25.810 - Atherosclerosis of coronary artery bypass graft(s) without angina pectoris (6) HLD (hyperlipidemia) Current Visit: No Status: Chronic Continue statin Qualifiers: Hyperlipidemia type: mixed hyperlipidemia Qualified Code(s): E78.2 - Mixed hyperlipidemia (7) Pneumonia Current Visit: No Status: Acute Concern for pneumonia likely aspiration to context of a massive hematemesis with bilateral infiltrates noted on CT scan White count remains elevated He is on broad-spectrum antimicrobials to cover for hospital associated organisms as well as anaerobes Continue antimicrobials today and planned to de-escalate over the next 24 hours based on culture and sensitivities along with clinical course Qualifiers: Pneumonia type: due to unspecified organism Laterality: unspecified laterality Lung location: unspecified part of lung Qualified Code(s): J18.9 - Pneumonia, unspecified organism (8) COPD (chronic obstructive pulmonary disease) Current Visit: No Status: Chronic No evidence of acute exacerbation Continue schedule bronchodilators No indication for systemic glucocorticoids Qualifiers: COPD type: emphysema Emphysema type: unspecified Qualified Code(s): J43.9 - Emphysema, unspecified (9) GI hemorrhage Current Visit: Yes Status: Acute Status post endoscopy yesterday which was notable for gastritis Switch PPI infusion to twice a day dosing of PPI H&H is stable Qualifiers: GI bleed type/associated pathology: gastrointestinal hemorrhage with hematemesis Qualified Code(s): K92.0 - Hematemesis (10) Diastolic CHF, chronic Current Visit: No Status: Chronic Mildly volume overloaded today heart rate control blood pressure control and scheduled Lasix (11) Hypovolemic shock Current Visit: Yes Status: Acute (12) History of CVA (cerebrovascular accident) Current Visit: Yes Status: Acute Holding aspirin because of gastrointestinal hemorrhage continue statin he was taking valproate at the outside facility although not mentioned I have concern for possible underlying seizure disorder possibly associated with prior CVA and we will continue this (13) Sacral decubitus ulcer, stage III Current Visit: Yes Status: Chronic Continue nursing care per routine does not appear to be grossly infected wound care consult if needed Subjective Principal diagnosis: Gastrointestinal Hemorrhage. Interval history: Mr. Medel has done well overnight. He has had no further evidence of gastrointestinal hemorrhage status post endoscopy which was notable for gastritis. H&H has been stable he has been in A. fib with RVR was started on amiodarone overnight without loading bolus. Weaned off vasopressor support. Today he is awake following commands he is alert but quite nervous and is motioning for the endotracheal tube to be removed Objective PUL Vital signs: Last Vital Signs Temp 99.0 F 12/14/17 04:00 Pulse 99 12/14/17 06:00 Resp 14 12/14/17 06:00 BP 130/89 12/14/17 06:00 Pulse Ox 100 12/14/17 06:00 General appearance: alert (w) Eyes: nonicteric ENT: other (Endotracheal tube noted in satisfactory position) Auscultation: bilateral: rales Cardiovascular: irregular rhythm Gastrointestinal: normoactive bowel sounds, soft, non-tender Integumentary: normal Extremities: pink and warm, pulses normal, edema Gait: other (Chronic atrophy of the lower extremities associated with prior CVA) pupils equal and round, other (Patient moves upper extremities bilaterally to my command strength appears to be preserved there is some weakness of the lower extremities bilaterally but this appears to be chronic he is able to move both extremities to command sensation grossly intact) anxious Ventilator Settings Ventilator Settings: Ventilator Settings, Last 8 Hours Ventilator Tidal Volume 460 Setting Ventilator Tidal Volume 460 Setting Ventilator Tidal Volume 460 Setting Ventilator Tidal Volume 460 Setting Ventilator Tidal Volume 460 Setting Ventilator Tidal Volume 460 Setting Ventilator Tidal Volume 460 Setting Ventilator Tidal Volume 460 Setting Ventilator Respiratory Rate 14 Setting Ventilator Respiratory Rate 14 Setting Ventilator Respiratory Rate 14 Setting Ventilator Respiratory Rate 14 Setting Ventilator Respiratory Rate 14 Setting Ventilator Respiratory Rate 14 Setting Ventilator Respiratory Rate 14 Setting Ventilator Respiratory Rate 14 Setting Actual Respiratory Rate 14 Actual Respiratory Rate 14 Actual Respiratory Rate 14 Actual Respiratory Rate 14 Actual Respiratory Rate 14 Actual Respiratory Rate 14 Actual Respiratory Rate 14 Actual Respiratory Rate 14 Positive End Expiratory 5 Pressure Positive End Expiratory 5 Pressure Positive End Expiratory 5 Pressure Positive End Expiratory 5 Pressure Positive End Expiratory 5 Pressure Positive End Expiratory 5 Pressure Positive End Expiratory 5 Pressure Positive End Expiratory 5 Pressure Peak Inspiratory Airway 25 Pressure Peak Inspiratory Airway 24 Pressure Peak Inspiratory Airway 26 Pressure Peak Inspiratory Airway 22 Pressure Peak Inspiratory Airway 29 Pressure Peak Inspiratory Airway 23 Pressure Peak Inspiratory Airway 23 Pressure Peak Inspiratory Airway 23 Pressure Results - Laboratory Findings CBC and BMP: 12/14/17 05:30 12/14/17 05:30 ABG ABG pH 7.42 pH Units (7.32-7.45) 12/13/17 05:38 ABG pCO2 44 mmHg (35-45) 12/13/17 05:38 ABG pO2 146 mmHg (85-104) H 12/13/17 05:38 ABG O2 Saturation 99 % (95-98) H 12/13/17 05:38 PT/INR, D-dimer PT 13.6 Seconds (9.4-12.1) H 12/13/17 00:25 Abnormal lab findings: Abnormal lab results WBC 25.6 K/mcL (4.3-11.1) H 12/14/17 05:30 RBC 3.40 M/mcL (4.19-5.50) L 12/14/17 05:30 Hgb 10.9 g/dL (12.9-16.9) L 12/14/17 05:30 Hct 33.3 % (37.5-50.1) L 12/14/17 05:30 RDW 18.7 % (11.5-14.5) H 12/14/17 05:30 MPV 8.7 fL (9.4-12.4) L 12/14/17 05:30 Neutrophils # 20.3 K/mcL (1.6-8.9) H 12/14/17 05:30 Monocytes # 2.8 K/mcL (0.0-1.3) H 12/14/17 05:30 Nucleated RBCs/100 WBC 0.2 /100 WBC (0) H 12/14/17 05:30 Clumped Platelets Few (Not Present) A 12/13/17 00:25 Large Platelets Present (Not Present) A 12/13/17 00:25 Polychromasia 1+ (Not Present) A 12/13/17 00:25 Anisocytosis 2+ (Not Present) A 12/13/17 00:25 Macrocytosis Present (Not Present) A 12/13/17 00:25 PT 13.6 Seconds (9.4-12.1) H 12/13/17 00:25 APTT 20.6 Seconds (26.0-36.0) L 12/13/17 00:25 ABG pO2 146 mmHg (85-104) H 12/13/17 05:38 ABG HCO3 28 mEq/L (21-27) H 12/13/17 05:38 ABG Total CO2 29 mEq/L (20-26) H 12/13/17 05:38 ABG O2 Saturation 99 % (95-98) H 12/13/17 05:38 Sodium 134 mEq/L (136-145) L 12/14/17 05:30 Creatinine 0.61 mg/dL (0.70-1.30) L 12/14/17 05:30 BUN/Creatinine Ratio 30 (6-26) H 12/14/17 05:30 Glucose 244 mg/dL (70-105) H 12/14/17 05:30 POC Glucose 122 mg/dL (70-99) H 12/14/17 00:17 Hemoglobin A1c 8.0 % (-5.6) H 12/13/17 08:05 Lactic Acid 3.6 mmol/L (0.5-2.2) H 12/14/17 05:30 Calcium 8.4 mg/dL (8.6-10.3) L 12/14/17 05:30 Troponin I 0.08 ng/mL (< 0.04) H* 12/14/17 05:30 Serum Total Protein 5.8 g/dL (6.4-8.9) L 12/14/17 05:30 Albumin 2.8 g/dL (3.5-5.7) L 12/14/17 05:30 Albumin/Globulin Ratio 0.9 (1.1-2.2) L 12/14/17 05:30 Ur Specific [place] 1.026 (1.010-1.025) H 12/13/17 02:30 Urine Glucose (UA) 250 mg/dL (Normal) H 12/13/17 02:30 Urine Ketones Trace mg/dL (Negative) H 12/13/17 02:30 - Microbiology Findings Microbiology Findings: Microbiology, Last 48 Hours 12/13/17 09:00 Blood Culture - Preliminary Peripheral Venipuncture Culture is incubating and being continuously monitored for growth. Final report to follow. 12/13/17 07:24 Blood Culture - Preliminary Peripheral Venipuncture Culture is incubating and being continuously monitored for growth. Final report to follow. - Clinical Findings Intake & Output: Intake & Output 12/13/17 12/13/17 12/14/17 15:59 23:59 07:59 Intake Total 2809.5 / 2809.5 800 / 800 1226 / 1226 Output Total 675 / 675 300 / 300 350 / 350 Balance 2134.5 / 2134.5 500 / 500 876 / 876 Consult Discharge Plan - Plan [facility]errals: [facility] [Primary Care Provider[facility] -
[2017-12-14] MEDS ORDERED: *HR* Metoprolol 5 MG/5 ML VIAL IVP ONE ×2 (07:19→07:21)
[2017-12-14] MEDS ORDERED: *HR* LORazepam 2 MG/ML VIAL IVP ONE (07:21)
[2017-12-14] MEDS ORDERED: *HR* LORazepam 2 MG/ML VIAL ONE (07:27)
[2017-12-14] MEDS ORDERED: Levofloxacin 750 MG/150 ML 750 MG/150 ML BAG IVPB SCH (09:00)
[2017-12-14] MEDS: Chlorhexidine Rinse 15 ML MOUTHWASH MM SCH ×2 (09:39→19:15)
--- NOTE | 2017-12-14 09:49 | General Surgery Progress Note ---
Date of Encounter: 12/14/17 Time of Encounter: 09:46 - Assessment and Plan (1) UGIB (upper gastrointestinal bleed) Current Visit: Yes Status: Acute Recommend continue with Protonix and carafate. Ok to start tube feeds as needed. Will follow from a distance. Thank you and please contact us if there are any questions. Subjective Patient reports: other (Patient extubated this am. Note further evidence of active bleeding.) Objective Vital Signs - Last 8 Hours Temp Pulse Resp BP Pulse Ox 12/14/17 09:00 90 18 94/68 100 12/14/17 08:07 101 12/14/17 08:05 16 94 12/14/17 08:00 89 20 99/64 100 12/14/17 07:45 20 100 12/14/17 07:00 98.3 F 112 18 107/82 99 12/14/17 06:00 99 14 130/89 100 12/14/17 05:49 14 130/99 100 12/14/17 05:00 111 14 122/85 100 12/14/17 04:00 99.0 F 116 14 126/80 100 12/14/17 03:36 14 124/86 99 12/14/17 03:00 116 14 124/86 99 12/14/17 02:00 96 14 106/83 99 Intake and Output 12/13/17 12/14/17 12/14/17 23:59 07:59 15:59 Intake Total 800 / 800 1396 / 1396 0 / 0 Output Total 300 / 300 350 / 350 200 / 200 Balance 500 / 500 1046 / 1046 -200 / -200 Intake: IV Fluids 800 / 800 1396 / 1396 Amiodarone Drip Premix 360mg/ 150 / 150 200mL 360 mg In 200 ml @ 0.5 MG /MIN 16.667 mls/hr IVC CONT [facility] Rx#:[id number] PRECEDEX Premix 400 mcg In 100 152 / 152 ml @ 0.2 MCG/KG/HR 4.309 mls/hr IVC .[id number] [facility] Rx#: [id number] FentaNYL (PF) 1,000 MCG In 0.9 100 / 100 52 / 52 % Sodium Chloride 80 ML @ 50 MCG/HR 5 mls/hr IVC CONT [facility] Rx #:[id number] Protonix 40 MG In 0.9 % Sodium 100 / 100 200 / 200 Chloride (Mini-Bag +) 100 ML @ 20 mls/hr IVC .Q5H [facility] Rx#: [id number] Phenylephrine 10 MG In Dextrose 250 / 250 492 / 492 5% 250 ML @ 100 MCG/MIN 150.6 mls/hr IVC CONT [facility] Rx#: [id number] Zosyn 3.375 GM In 0.9 % Sodium 100 / 100 100 / 100 Chloride (Mini-Bag +) 100 ML @ 25 mls/hr IVPB Q8HR [facility] Rx#: [id number] Vancocin 1,250 MG In 0.9 % 250 / 250 250 / 250 Sodium Chloride 250 ML @ 166. 667 mls/hr IVPB Q12H [facility] Rx#: [id number] Oral 0 / 0 Output: Catheter 300 / 300 350 / 350 200 / 200 Other: Blood Glucose* 108 213 - General physical appearance no distress - Abdomen Abdomen: Present: soft, non tender (Gtube in place) - Labs 12/14/17 05:30 12/14/17 05:30 Diabetes panel 12/13/17 12/14/17 12/14/17 Range/Units 17:00 01:00 05:30 Sodium 136 137 134 L (136-145) mEq/L Potassium 3.5 3.2 L 3.5 (3.5-5.1) mEq/L Chloride 106 103 102 (98-107) mEq/L Carbon Dioxide 27 27 26 (23-29) mEq/L BUN 24 H 20 18 (8-23) mg/dL Creatinine 0.66 L 0.68 L 0.61 L (0.70-1.30) mg/dL Glucose 69 L 157 H 244 H (70-105) mg/dL Calcium 8.3 L 8.4 L 8.4 L (8.6-10.3) mg/dL AST 20 18 16 (13-39) Units/L ALT 18 17 17 (7-52) Units/L Alkaline Phosphatase 41 45 49 (34-104) Units/L Albumin 3.0 L 2.8 L 2.8 L (3.5-5.7) g/dL Calcium panel 12/13/17 12/14/17 12/14/17 Range/Units 17:00 01:00 05:30 Calcium 8.3 L 8.4 L 8.4 L (8.6-10.3) mg/dL Albumin 3.0 L 2.8 L 2.8 L (3.5-5.7) g/dL Pituitary panel 12/13/17 12/14/17 12/14/17 Range/Units 17: 01:00 05:30 Sodium 136 137 134 L (136-145) mEq/L Potassium 3.5 3.2 L 3.5 (3.5-5.1) mEq/L Chloride 106 103 102 (98-107) mEq/L Carbon Dioxide 27 27 26 (23-29) mEq/L BUN 24 H 20 18 (8-23) mg/dL Creatinine 0.66 L 0.68 L 0.61 L (0.70-1.30) mg/dL Glucose 69 L 157 H 244 H (70-105) mg/dL Calcium 8.3 L 8.4 L 8.4 L (8.6-10.3) mg/dL Adrenal panel 12/13/17 12/14/17 12/14/17 Range/Units 17:00 01:00 05:30 Sodium 136 137 134 L (136-145) mEq/L Potassium 3.5 3.2 L 3.5 (3.5-5.1) mEq/L Chloride 106 103 102 (98-107) mEq/L Carbon Dioxide 27 27 26 (23-29) mEq/L BUN 24 H 20 18 (8-23) mg/dL Creatinine 0.66 L 0.68 L 0.61 L (0.70-1.30) mg/dL Glucose 69 L 157 H 244 H (70-105) mg/dL Calcium 8.3 L 8.4 L 8.4 L (8.6-10.3) mg/dL Total Bilirubin 0.9 0.9 0.9 (0.3-1.0) mg/dL AST 20 18 16 (13-39) Units/L ALT 18 17 17 (7-52) Units/L Alkaline Phosphatase 41 45 49 (34-104) Units/L Albumin 3.0 L 2.8 L 2.8 L (3.5-5.7) g/dL Consult Discharge Plan - Plan [facility]errals: [facility] [Primary Care Provider[facility] -
[2017-12-14] MEDS: Valproic Acid Oral Soln 250 MG/5 ML UDC GTUBE SCH ×3 (11:27→23:09)
[2017-12-14] MEDS: Pantoprazole 40 MG VIAL IVP SCH (18:13)
[2017-12-15 03:29] LABS: Basophils # 0.1 K/mcL (0.0-0.2); Basophils % 0.2 %; Eosinophils # 0.2 K/mcL (0.0-0.6); Hematocrit 30.8 % (37.5-50.1); Immature Granulocytes % 0.8 % (0-4); Lymphocytes # 1.6 K/mcL (0.6-4.6); Lymphocytes % 7.9 %; Mean Corpuscular HGB Conc 32.5 g/dL (31.6-35.5); Mean Corpuscular Hemoglobin 32.4 pg (28.0-33.3); Mean Corpuscular Volume 99.7 fL (83.0-100.0); Mean Platelet Volume 8.8 fL (9.4-12.4); Monocytes # 1.8 K/mcL (0.0-1.3); Monocytes % 8.6 %; Neutrophils # 16.6 K/mcL (1.6-8.9); Platelet Count 238 K/mcL (140-400); Red Blood Count 3.09 M/mcL (4.19-5.50); Red Cell Distribution Width 18.5 % (11.5-14.5); Segmented Neutrophils % 81.5 %
[2017-12-15] MEDS: Ipratropium/Albuterol Neb 3 ML IH SCH ×6 (03:39→20:16)
[2017-12-15 03:49] LABS: Alanine Aminotransferase 15 Units/L (7-52); Albumin 2.7 g/dL (3.5-5.7); Albumin/Globulin Ratio 0.9 (1.1-2.2); Alkaline Phosphatase 51 Units/L (34-104); Aspartate Amino Transferase 16 Units/L (13-39); BUN/Creatinine Ratio 35 (6-26); Blood Urea Nitrogen 19 mg/dL (8-23); Calcium 8.5 mg/dL (8.6-10.3); Carbon Dioxide 26 mEq/L (23-29); Chloride 103 mEq/L (98-107); Globulin 2.9 g/dL (2.4-3.5); Glucose 189 mg/dL (70-105); Osmolality,Calculated 289 (280-300); Potassium 3.6 mEq/L (3.5-5.1); Sodium 136 mEq/L (136-145); Total Protein 5.6 g/dL (6.4-8.9); eGFR For Non-African Americans > 60 (> 60)
[2017-12-15] MEDS: Valproic Acid Oral Soln 250 MG/5 ML UDC GTUBE SCH ×4 (05:05→23:44)
[2017-12-15] MEDS: Insulin LISPRO 300 UNITS/3 ML VIAL SQ SCH ×2 (05:06→17:55)
[2017-12-15] MEDS: Pantoprazole 40 MG VIAL IVP SCH ×2 (05:06→17:34)
[2017-12-15] MEDS ORDERED: Aminoglycoside Consult 1 EACH MC ONE (06:53)
--- NOTE | 2017-12-15 07:43 | Pulmonology Progress Note ---
<BriannaMercedes M - Last Filed: 12/15/17 10:11> Date of Encounter: 12/15/17 Objective PUL Vital signs: Last Vital Signs Temp 99.6 F 12/15/17 07:47 Pulse 96 12/15/17 10:00 Resp 20 12/15/17 10:00 BP 114/81 12/15/17 10:00 Pulse Ox 94 12/15/17 10:00 Results - Laboratory Findings CBC and BMP: 12/15/17 03:10 12/15/17 03:20 ABG ABG pH 7.42 pH Units (7.32-7.45) 12/13/17 05:38 ABG pCO2 44 mmHg (35-45) 12/13/17 05:38 ABG pO2 146 mmHg (85-104) H 12/13/17 05:38 ABG O2 Saturation 99 % (95-98) H 12/13/17 05:38 PT/INR, D-dimer PT 13.6 Seconds (9.4-12.1) H 12/13/17 00:25 Abnormal lab findings: Abnormal lab results WBC 20.4 K/mcL (4.3-11.1) H 12/15/17 03:10 RBC 3.09 M/mcL (4.19-5.50) L 12/15/17 03:10 Hgb 10.0 g/dL (12.9-16.9) L 12/15/17 03:10 Hct 30.8 % (37.5-50.1) L 12/15/17 03:10 RDW 18.5 % (11.5-14.5) H 12/15/17 03:10 MPV 8.8 fL (9.4-12.4) L 12/15/17 03:10 Neutrophils # 16.6 K/mcL (1.6-8.9) H 12/15/17 03:10 Monocytes # 1.8 K/mcL (0.0-1.3) H 12/15/17 03:10 Nucleated RBCs/100 WBC 0.2 /100 WBC (0) H 12/14/17 05:30 Clumped Platelets Few (Not Present) A 12/13/17 00:25 Large Platelets Present (Not Present) A 12/13/17 00:25 Polychromasia 1+ (Not Present) A 12/13/17 00:25 Anisocytosis 2+ (Not Present) A 12/13/17 00:25 Macrocytosis Present (Not Present) A 12/13/17 00:25 PT 13.6 Seconds (9.4-12.1) H 12/13/17 00:25 APTT 20.6 Seconds (26.0-36.0) L 12/13/17 00:25 ABG pO2 146 mmHg (85-104) H 12/13/17 05:38 ABG HCO3 28 mEq/L (21-27) H 12/13/17 05:38 ABG Total CO2 29 mEq/L (20-26) H 12/13/17 05:38 ABG O2 Saturation 99 % (95-98) H 12/13/17 05:38 Creatinine 0.55 mg/dL (0.70-1.30) L 12/15/17 03:20 BUN/Creatinine Ratio 35 (6-26) H 12/15/17 03:20 Glucose 189 mg/dL (70-105) H 12/15/17 03:20 POC Glucose 134 mg/dL (70-99) H 12/14/17 23:31 Hemoglobin A1c 8.0 % (-5.6) H 12/13/17 08:05 Lactic Acid 3.3 mmol/L (0.5-2.2) H 12/14/17 11:48 Calcium 8.5 mg/dL (8.6-10.3) L 12/15/17 03:20 Troponin I 0.08 ng/mL (< 0.04) H* 12/14/17 05:30 Serum Total Protein 5.6 g/dL (6.4-8.9) L 12/15/17 03:20 Albumin 2.7 g/dL (3.5-5.7) L 12/15/17 03:20 Albumin/Globulin Ratio 0.9 (1.1-2.2) L 12/15/17 03:20 Ur Specific [place] 1.026 (1.010-1.025) H 12/13/17 02:30 Urine Glucose (UA) 250 mg/dL (Normal) H 12/13/17 02:30 Urine Ketones Trace mg/dL (Negative) H 12/13/17 02:30 Vancomycin Trough 11 mcg/mL (5-10) H 12/15/17 00:25 - Microbiology Findings Microbiology Findings: Microbiology, Last 48 Hours 12/13/17 09:00 Blood Culture - Preliminary Peripheral Venipuncture Culture is incubating and being continuously monitored for growth. Final report to follow. 12/13/17 07:24 Blood Culture - Preliminary Peripheral Venipuncture Culture is incubating and being continuously monitored for growth. Final report to follow. - Clinical Findings Intake & Output: Intake & Output 12/14/17 12/15/17 12/15/17 23:59 07:59 15:59 Intake Total 350 / 350 350 / 350 Output Total 250 / 250 250 / 250 Balance 100 / 100 100 / 100 Weight 70.4 kg Consult Discharge Plan - Plan [facility] Care Provider[facility] - - Attending Attestation I examined this patient and my medical decision-making was reviewed with the Resident Physician. I agree with the documented findings, disposition and treatment plan as described except to the extent set forth below. Patient seen and examined. Labs, radiology, chart personally reviewed. Agree with resident's history and physical, assessment, plan with following comments: ENVIRONMENTAL PROTECTION ECONOMIST: Patient follows commands, patient has history of stroke in the past. Pulmonary: Acceptable oxygenation and ventilation Cardiovascular: Patient with A. fib RVR and plan for rate control. As soon as stable he can be transferred out of ICU. GI: Nutrition per dietary and GI prophylaxis per routine. Status post endoscopy with no evidence of bleeding. Heme: DVT prophylaxis per routine. Due to his multiple comorbidities he would need anticoagulation but this needed to be clarified with the GI Renal; urine out put and renal funtion reviewed Endorcine: blood glucose is monitored Lines: all lines checked and no evidence of infections Skin: skin care to prevent pressure ulcers per nursing routine care ID: Possible dyer pneumonia and his been empirically covered. <Williams,Bella - Last Filed: 12/15/17 13:51> Date of Encounter: 12/15/17 Time of Encounter: 08:13 Assessment and Plan (1) Severe sepsis Current Visit: Yes Status: Acute Resolved. suspected secondary to hypovolemia as a result of hematemesis and suspected aspiration pneumonia. Heart rate controlled with increase of IV cardizem, 60 Q8. Leukocytosis persistent, Respiratory rate stable. He is hemodynamically stable, spoke with the admitting hospitalist and he will be transferred to [facility]. -Received 3 liter of fluid resuscitation at presentation. -MRSA is negative, urinalysis is negative -Can transition from vancomycin and zosyn to only zosyn, day 3 -Continue to monitor vitals (2) Acute respiratory failure Current Visit: Yes Status: Acute Was intubated yesterday and extubated yesterday. No history of home oxygen. On 2 liters of nasal canula, saturation at 98%. -Will consider weaning off supplemental oxygen -Continue Duoneb Qualifiers: Respiratory failure complication: hypoxia Qualified Code(s): J96.01 - Acute respiratory failure with hypoxia (3) Atrial fibrillation with RVR Current Visit: Yes Status: Chronic History of A fib with RVR. At home he is on metoprolol 50 mg BID. Not on any anticoagulants at home, per has history of bleeds therefore not a candidate. -Because his rate is still uncontrolled, cardizem increased to 60 mg Q8HR via PEG tube. -Continue home metoprolol (4) CHF (congestive heart failure) Current Visit: Yes Status: Chronic History of CHF, currently no evidence of volume overload. Last echo 7 months ago , LVEF 55% with no evidence of valvular dysfunction. -Strict I/O no longer suggested -Continue to monitor -Can consider restarting home furosemide and lisinopril Qualifiers: Heart failure type: unspecified Qualified Code(s): I50.9 - Heart failure, unspecified (5) DM2 (diabetes mellitus, type 2) Current Visit: Yes Status: Chronic On glargine and aspart at home -On medium sliding scale Q6HR -Nutrition and delivery professional consulted Qualifiers: Diabetes mellitus ferry terminal agent insulin use: with snf use Diabetes mellitus complication status: with circulatory complication Diabetes mellitus complication detail: with other circulatory complications Qualified Code(s): E11.59 - Type 2 diabetes mellitus with other circulatory complications; Z79.4 - termination clerk (current) use of insulin (6) Aspiration pneumonia Current Visit: Yes Status: Suspected Suspected aspiration pneumonia. CT scan shows bilateral lower lobe infiltrates. Persistent leukocytosis, MRSA negative. Transitioned from vancmycin and zosyn to only zosyn. Blood cultures negative. -2 blood culture tubes negative -Continue zosyn, day 3 -NPO due to continued concern for aspiration Qualifiers: Aspiration pneumonia type: due to vomit Laterality: bilateral Lung location: unspecified part of lung Qualified Code(s): J69.0 - Pneumonitis due to inhalation of food and vomit (7) GI bleed Current Visit: Yes Status: Acute Presented with hematemesis and had bleeding through the PEG. EGD at bedside did not show any acute bleeding ulcer. Inflammation of the duodenum, biopsies were obtained with results pending. -Continue carafate and 40 IV Protonix BID Qualifiers: GI bleed type/associated pathology: unspecified gastrointestinal hemorrhage type Qualified Code(s): K92.2 - Gastrointestinal hemorrhage, unspecified (8) COPD (chronic obstructive pulmonary disease) Current Visit: Yes Status: Chronic No evidence of acute exacerbations. No wheezing noted on exam. Continue duonebs. On 3 liters of oxygen and is no on oxygen at home. -May require an oxygen evaluation for home O2 -No indications for systemic glucocorticoids. Qualifiers: COPD type: emphysema Emphysema type: unspecified Qualified Code(s): J43.9 - Emphysema, unspecified (9) History of CVA (cerebrovascular accident) Current Visit: Yes Status: Acute History of two previous CVA. CT of the head at admission did not show any acute changes. Per he has history of hallucinations since his stroke. Mentation at baseline. -He does not have a gag reflex intact -NPO per speech and swallow (10) HLD (hyperlipidemia) Current Visit: Yes Status: Acute Continue atorvastatin Qualifiers: Hyperlipidemia type: unspecified Qualified Code(s): E78.5 - Hyperlipidemia , unspecified (11) Goals of care, counseling/discussion Current Visit: Yes Status: Acute Had a discussion with the about goals of care. She would like to pursue symptomatic treatment. She mentioned that because of his two previous CVA she realizes he will not be back to his old self. She would like for him to be comfortable and in case of a cardiac arrest she would not like to pursue life saving measures. (12) Elevated troponin Current Visit: Yes Status: Acute Troponin was 0.4 and then decreased to 0.08, suspected secondary to demand ischemia. No EKG changes when compared to his old EKGs. Has history of CA and recent heart catherization. He should be on Plavix and aspirin and was not taking plavix at home. -Resume aspirin and plavix, hematemesis resolved (13) Stage III pressure ulcer Current Visit: Yes Status: Chronic Chronic stage 3 decubitus ulcer at [facility] and stage 2 ulcer at right lower leg. -Consulted wound care -Continue to turn the patient every 2 hours -Added hydrocodone 5 mg-325, per he is not allergic to acetaminophen or codeine -monitor for infection and use collegenase if needed Qualifiers: Pressure injury location: sacral region Qualified Code(s): L89.153 - Pressure ulcer of sacral region, stage 3 Subjective Principal diagnosis: Gastrointestinal Hemorrhage. Interval history: Mr. Medel was examined at bedside this morning. He is awake and alert, follows commands to an extent due to baseline confusion. He was presented here three days ago due to hematemesis and bleeding around his PEG and bedside EGD three days ago showed inflammation around the duodenum, no ulcers noted awaiting duodenal biopsy results. He is on room air and does not appear to be respiratory distress. He is confused at baseline and does not elicit any complaints. He has no further hematemesis but has had black colored stools the past 3 days. Objective PUL Vital signs: Last Vital Signs Temp 98.6 F 12/15/17 03:00 Pulse 114 12/15/17 06:01 Resp 16 12/15/17 07:33 BP 106/69 12/15/17 06:01 Pulse Ox 96 12/15/17 07:33 General appearance: no acute distress, alert Eyes: nonicteric ENT: oropharynx moist Auscultation: bilateral: diminished breath sounds (bilateral lower lungs bases) Cardiovascular: irregular rhythm (irregulary irregular, rate of 118) Gastrointestinal: hypoactive bowel sounds, soft (PEG tube in place, no hematemesis around the PEG noted), non-tender, non-distended Extremities: no edema (chronic skin changes of bilateral lower extremities), pulses normal anxious (thought content not congruent) Results - Laboratory Findings CBC and BMP: 12/15/17 03:10 12/15/17 03:20 ABG ABG pH 7.42 pH Units (7.32-7.45) 12/13/17 05:38 ABG pCO2 44 mmHg (35-45) 12/13/17 05:38 ABG pO2 146 mmHg (85-104) H 12/13/17 05:38 ABG O2 Saturation 99 % (95-98) H 12/13/17 05:38 PT/INR, D-dimer PT 13.6 Seconds (9.4-12.1) H 12/13/17 00:25 Abnormal lab findings: Abnormal lab results WBC 20.4 K/mcL (4.3-11.1) H 12/15/17 03:10 RBC 3.09 M/mcL (4.19-5.50) L 12/15/17 03:10 Hgb 10.0 g/dL (12.9-16.9) L 12/15/17 03:10 Hct 30.8 % (37.5-50.1) L 12/15/17 03:10 RDW 18.5 % (11.5-14.5) H 12/15/17 03:10 MPV 8.8 fL (9.4-12.4) L 12/15/17 03:10 Neutrophils # 16.6 K/mcL (1.6-8.9) H 12/15/17 03:10 Monocytes # 1.8 K/mcL (0.0-1.3) H 12/15/17 03:10 Nucleated RBCs/100 WBC 0.2 /100 WBC (0) H 12/14/17 05:30 Clumped Platelets Few (Not Present) A 12/13/17 00:25 Large Platelets Present (Not Present) A 12/13/17 00:25 Polychromasia 1+ (Not Present) A 12/13/17 00:25 Anisocytosis 2+ (Not Present) A 12/13/17 00:25 Macrocytosis Present (Not Present) A 12/13/17 00:25 PT 13.6 Seconds (9.4-12.1) H 12/13/17 00:25 APTT 20.6 Seconds (26.0-36.0) L 12/13/17 00:25 ABG pO2 146 mmHg (85-104) H 12/13/17 05:38 ABG HCO3 28 mEq/L (21-27) H 12/13/17 05:38 ABG Total CO2 29 mEq/L (20-26) H 12/13/17 05:38 ABG O2 Saturation 99 % (95-98) H 12/13/17 05:38 Creatinine 0.55 mg/dL (0.70-1.30) L 12/15/17 03:20 BUN/Creatinine Ratio 35 (6-26) H 12/15/17 03:20 Glucose 189 mg/dL (70-105) H 12/15/17 03:20 POC Glucose 134 mg/dL (70-99) H 12/14/17 23:31 Hemoglobin A1c 8.0 % (-5.6) H 12/13/17 08:05 Lactic Acid 3.3 mmol/L (0.5-2.2) H 12/14/17 11:48 Calcium 8.5 mg/dL (8.6-10.3) L 12/15/17 03:20 Troponin I 0.08 ng/mL (< 0.04) H* 12/14/17 05:30 Serum Total Protein 5.6 g/dL (6.4-8.9) L 12/15/17 03:20 Albumin 2.7 g/dL (3.5-5.7) L 12/15/17 03:20 Albumin/Globulin Ratio 0.9 (1.1-2.2) L 12/15/17 03:20 Ur Specific [place] 1.026 (1.010-1.025) H 12/13/17 02:30 Urine Glucose (UA) 250 mg/dL (Normal) H 12/13/17 02:30 Urine Ketones Trace mg/dL (Negative) H 12/13/17 02:30 Vancomycin Trough 11 mcg/mL (5-10) H 12/15/17 00:25 - Microbiology Findings Microbiology Findings: Microbiology, Last 48 Hours 12/13/17 09:00 Blood Culture - Preliminary Peripheral Venipuncture Culture is incubating and being continuously monitored for growth. Final report to follow. 12/13/17 07:24 Blood Culture - Preliminary Peripheral Venipuncture Culture is incubating and being continuously monitored for growth. Final report to follow. - Diagnostic Findings Chest x-ray: image reviewed (Reviewed from 12/13/17, some pleura effusion on the left lower base) CT scan - chest: image reviewed (multifocal pneumonia) Additional studies: KUB: NG tube in position CT Head: no acute findings, right middle cerebral artery infarct. Air fluid in left maxillary sinus and sphenoid sinus CT spine: cervical fusion, C5-C7 - Clinical Findings Intake & Output: Intake & Output 12/14/17 12/14/17 12/15/17 15:59 23:59 07:59 Intake Total 194 / 194 350 / 350 350 / 350 Output Total 525 / 525 250 / 250 150 / 150 Balance -331 / -331 100 / 100 200 / 200 Weight 70.4 kg
[2017-12-15] MEDS: Piperacillin/Tazobactam 3.375 GM in 0.9 % Sodium Chloride Mini Bag 100 ML IVPB SCH ×2 (08:18→17:33)
[2017-12-15] MEDS ORDERED: Aspirin 81 MG TAB.CHEW PO SCH (11:00)
[2017-12-15] MEDS ORDERED: Dextrose Gel 15 GM/37.5 ML TUBE PO PRN ×2 (11:20)
[2017-12-15] MEDS ORDERED: *HR* Dextrose 50 % in Water (Syg) 50 ML SYRINGE IVP PRN (11:20)
[2017-12-15] MEDS ORDERED: D5% in Water 1,000 ML IVC PRN (11:20)
[2017-12-15] MEDS ORDERED: Desitin (Zinc Oxide) 56 GM TUBE TP PRN (11:20)
[2017-12-15] MEDS ORDERED: Naloxone 0.4 MG/ML INJ IVP PRN (11:20)
[2017-12-15] MEDS ORDERED: Insulin LISPRO 300 UNITS/3 ML VIAL SQ SCH (12:00)
[2017-12-15] MEDS ORDERED: Ondansetron Oral Soln 2 MG/2.5 ML ORAL.SYG PO PRN (12:26)
--- NOTE | 2017-12-15 17:46 | Electrocardiograph Report ---
[place] [id number] Test Date: 2017-12-13 Pat Name: Abrahan Medel Department: 104 Room: 2NE30 Gender: M Movie Stunt Performer: GEREMIAS : 1950 Requested By: Manny Peralta Order Number: [id number] Reading MD: Delilah Dickson Measurements Intervals Likely Rate: 132 P: [place]: 0 QRS: -43 QRSD: 129 T: 121 QT: 323 QTc: 401 Interpretive Statements ATRIAL FIBRILLATION WITH RAPID VENTRICULAR RESPONSE LEFT BUNDLE BRANCH BLOCK [120+ ms QRS DURATION, 80+ ms Q/S IN V1/V2, 85+ ms R IN I/aVL/V5/V6] ARTIFACT Electronically Signed On 12-15-2017 17:44:51 EDT by Delilah Dickson
--- NOTE | 2017-12-15 17:47 | Electrocardiograph Report ---
[address] [place], [place] [address] Test Date: 2017-12-13 Pat Name: Abrahan Medel Department: 109 Room: [facility] Gender: Fire Prevention Specialist: CLARISSE : 1950 Requested By: [id number] Order Number: [id number] Reading MD: Delilah Dickson Measurements Intervals [place] Rate: 111 P: [place]: 0 QRS: -29 QRSD: 140 T: 149 QT: 359 QTc: 425 Interpretive Statements ATRIAL FIBRILLATION WITH RAPID VENTRICULAR RESPONSE LEFT BUNDLE BRANCH BLOCK Electronically Signed On 12-15-2017 17:46:32 EDT by Delilah Dickson
[2017-12-16] MEDS: Piperacillin/Tazobactam 3.375 GM in 0.9 % Sodium Chloride Mini Bag 100 ML IVPB SCH ×4 (00:01→23:31)
[2017-12-16] MEDS: Ipratropium/Albuterol Neb 3 ML IH SCH ×8 (00:02→23:43)
[2017-12-16] MEDS: Insulin LISPRO 300 UNITS/3 ML VIAL SQ SCH ×5 (01:41→23:32)
[2017-12-16] MEDS: Haloperidol Lactate 5 MG/ML VIAL IVP PRN ×2 (02:43→17:17)
[2017-12-16] MEDS: Valproic Acid Oral Soln 250 MG/5 ML UDC GTUBE SCH ×4 (06:12→23:30)
[2017-12-16] MEDS: Pantoprazole 40 MG VIAL IVP SCH ×2 (06:18→17:20)
[2017-12-16] MEDS: Aspirin 81 MG TAB.CHEW PO SCH (10:08)
--- NOTE | 2017-12-16 13:32 | Internal Med Progress Note ---
<DeniceIsrael Liya - Last Filed: 12/16/17 16:16> Hospitalist Progress Note - Encounter Date of Encounter: 12/16/17 Time of Encounter: 09:00 - Subjective Interval History: 67 y/o male with a PMHx of atrial fibrillation, diastolic CHF with most recent echo showing EF 55%, hypertension, DM2, CKD Stage II, GERD, CVA causing dysphagia and PEG tube placement, protein calorie malnutrition, chronic debilitation, stage 3 sacral decubitus ulcer, s/p CABG, s/p stent with ASA and Plavix therapy who [facility]. Patient received haloperidol overnight for hallucinations and odd behavior. He is confused at baseline, and I was unable to obtain a significant history from patient. He is not having any complaints today. - Exam Vitals: Temp Pulse Resp BP Pulse Ox 98.1 F 99 16 128/75 98 12/16/17 11:15 12/16/17 11:15 12/16/17 11:15 12/16/17 11:15 12/16/17 11:15 Exam: Gen - well appearing male in no distress, A&O x0, patient is confused at baseline Heart - RRR NECK - no lymphadenopathy RESP - rhonchi present bilaterally, no respiratory distress GI - BS x4, soft abdomen, PEG tube is present VASC - radial and dorsal pulses palpable, no edema - Assessment and Plan (1) Severe sepsis Current Visit: Yes Status: Acute Assessment and Plan: Leukocytosis is improving 26.5 > 20.4 Lactic acidosis resolved at 1.3 Patient HR is 99 Blood cultures pending (2) Multifocal pneumonia Current Visit: Yes Status: Acute Assessment and Plan: Continue zosyn Continue home symbicort MRSA was negative so vacomycin was discontinued Will continue to monitor WBC count (3) Hematemesis Current Visit: Yes Status: Acute Assessment and Plan: Patient denies recent hematemesis EGD showed no active bleeding Duodenal biopsy taken due to duodenitis Continue protonix Octreotide stopped (4) Atrial fibrillation Current Visit: Yes Status: Chronic Assessment and Plan: Continue cardizem Continue metoprolol Aspirin started again Plavix started again Will monitor with EKG if patient becomes symptomatic (5) Diabetes Current Visit: No Status: Chronic Assessment and Plan: Accuchecks Q 6 hours (6) Sacral decubitus ulcer Current Visit: Yes Status: Chronic Assessment and Plan: Wound care on consult (7) CHF (congestive heart failure) Current Visit: No Status: Chronic Assessment and Plan: Patient's last EF was 55% Resume home medication of lasix 20 mg BID Resume home spironolactone (8) Chronic kidney disease, stage II (mild) Current Visit: Yes Status: Chronic Assessment and Plan: Patient Cr is 0.55 Hgb is 10 Will continue to monitor kidney function (9) HTN (hypertension) Current Visit: No Status: Chronic (10) HLD (hyperlipidemia) Current Visit: No Status: Chronic DVT Prophylaxis: IPCDs - Time Spent with Patient Total time spent is greater than 50% in coordination of care (as documented) at patient's floor/unit and/or counseling patient: 25 - 35 minutes Plan of Care Discussed with: patient Internal Medicine: Result - Labs CBC & Chem 7: 12/15/17 03:10 12/15/17 03:20 - ABG Interpretation ABG results: ABG ABG pH 7.42 pH Units (7.32-7.45) 12/13/17 05:38 ABG pCO2 44 mmHg (35-45) 12/13/17 05:38 ABG pO2 146 mmHg (85-104) H 12/13/17 05:38 ABG O2 Saturation 99 % (95-98) H 12/13/17 05:38 PT/INR, D-dimer PT 13.6 Seconds (9.4-12.1) H 12/13/17 00:25 - Impressions Impressions Chest X-Ray 12/13/17 07:12 IMPRESSION: 1. Interval placement of a right internal jugular central venous catheter, in proper position, without evidence of a pneumothorax. 2. Stable cardiomegaly, interstitial pulmonary edema, and a small left pleural effusion. D/ / 12/13/2017 07:42:34 Montez Fry MD / [facility] Interpreting Provider: Montez Fry MD Consult Discharge Plan - Plan [facility]errals: [facility]Primary Care Provider[facility] - <Vanessa Lan - Last Filed: 12/16/17 17:25> Hospitalist Progress Note - Encounter Date of Encounter: 12/16/17 - Exam Vitals: Temp Pulse Resp BP Pulse Ox 98.1 F 99 16 128/75 98 12/16/17 11:15 12/16/17 11:15 12/16/17 11:15 12/16/17 11:15 12/16/17 11:15 - Assessment and Plan (1) Acute respiratory failure Current Visit: Yes Status: Acute (2) Severe sepsis Current Visit: Yes Status: Acute (3) Atrial fibrillation with RVR Current Visit: Yes Status: Chronic (4) CHF (congestive heart failure) Current Visit: Yes Status: Chronic (5) DM2 (diabetes mellitus, type 2) Current Visit: Yes Status: Chronic (6) Aspiration pneumonia Current Visit: Yes Status: Suspected (7) GI bleed Current Visit: Yes Status: Acute (8) COPD (chronic obstructive pulmonary disease) Current Visit: Yes Status: Chronic (9) History of CVA (cerebrovascular accident) Current Visit: Yes Status: Acute (10) HLD (hyperlipidemia) Current Visit: Yes Status: Acute (11) Goals of care, counseling/discussion Current Visit: Yes Status: Acute (12) Elevated troponin Current Visit: Yes Status: Acute (13) Stage III pressure ulcer Current Visit: Yes Status: Chronic - Time Spent with Patient Total time spent is greater than 50% in coordination of care (as documented) at patient's floor/unit and/or counseling patient: Internal Medicine: Result - Labs CBC & Chem 7: 12/15/17 03:10 12/15/17 03:20 - ABG Interpretation ABG results: ABG ABG pH 7.42 pH Units (7.32-7.45) 12/13/17 05:38 ABG pCO2 44 mmHg (35-45) 12/13/17 05:38 ABG pO2 146 mmHg (85-104) H 12/13/17 05:38 ABG O2 Saturation 99 % (95-98) H 12/13/17 05:38 PT/INR, D-dimer PT 13.6 Seconds (9.4-12.1) H 12/13/17 00:25 - Attending Attestation I have seen and examined this patient independently. I have discussed with resident physician Dr. Galdamez regarding the management plan. Agree with the documentation. <Israel Galdamez - Last Filed: 12/16/17 16:16> (4) Atrial fibrillation Qualifiers: Atrial fibrillation type: permanent Qualified Code(s): I48.2 - Chronic atrial fibrillation (5) Diabetes Qualifiers: Diabetes mellitus type: type 2 Diabetes mellitus terminal make up operator insulin use: with intermediate use Diabetes mellitus complication status: without complication Qualified Code(s): E11.9 - Type 2 diabetes mellitus without complications; Z79.4 - longterm (current) use of insulin (9) HTN (hypertension) Qualifiers: Hypertension type: essential hypertension Qualified Code(s): I10 - Essential (primary) hypertension (10) HLD (hyperlipidemia) Qualifiers: Hyperlipidemia type: mixed hyperlipidemia Qualified Code(s): E78.2 - Mixed hyperlipidemia <Vanessa Lan - Last Filed: 12/16/17 17:25> (1) Acute respiratory failure Qualifiers: Respiratory failure complication: hypoxia Qualified Code(s): J96.01 - Acute respiratory failure with hypoxia (4) CHF (congestive heart failure) Qualifiers: Heart failure type: unspecified Qualified Code(s): I50.9 - Heart failure, unspecified (5) DM2 (diabetes mellitus, type 2) Qualifiers: Diabetes mellitus intermediate insulin use: with terminal make up operator use Diabetes mellitus complication status: with circulatory complication Diabetes mellitus complication detail: with other circulatory complications Qualified Code(s): E11.59 - Type 2 diabetes mellitus with other circulatory complications; Z79.4 - intermediate project manager (current) use of insulin (6) Aspiration pneumonia Qualifiers: Aspiration pneumonia type: due to vomit Laterality: bilateral Lung location : unspecified part of lung Qualified Code(s): J69.0 - Pneumonitis due to inhalation of food and vomit (7) GI bleed Qualifiers: GI bleed type/associated pathology: unspecified gastrointestinal hemorrhage type Qualified Code(s): K92.2 - Gastrointestinal hemorrhage, unspecified (8) COPD (chronic obstructive pulmonary disease) Qualifiers: COPD type: emphysema Emphysema type: unspecified Qualified Code(s): J43.9 - Emphysema, unspecified (10) HLD (hyperlipidemia) Qualifiers: Hyperlipidemia type: unspecified Qualified Code(s): E78.5 - Hyperlipidemia, unspecified (13) Stage III pressure ulcer Qualifiers: Pressure injury location: sacral region Qualified Code(s): L89.153 - Pressure ulcer of sacral region, stage 3
--- NOTE | 2017-12-16 16:36 | Electrocardiograph Report ---
[address] [place], [place] [address] Test Date: 2017-12-16 Pat Name: Abrahan Medel Department: 111 Room: [facility] Gender: M Cisco Certified Internetwork Expert: RAW : 1950 Requested By: Montez Parkinson Order Number: [id number] Reading MD: Delilah Dickson Measurements Intervals [place] Rate: 127 P: [place]: 0 QRS: -25 QRSD: 145 T: 154 QT: 361 QTc: 436 Interpretive Statements ATRIAL FIBRILLATION WITH RAPID VENTRICULAR RESPONSE LEFT BUNDLE BRANCH BLOCK Electronically Signed On 12-16-2017 16:34:42 EDT by Delilah Dickson
[2017-12-16] MEDS: Furosemide 20 MG TABLET PO SCH (17:18)
[2017-12-16] MEDS: Budesonide/Formoterol 160/4.5 MDI IH SCH (19:59)
[2017-12-17] MEDS: Ipratropium/Albuterol Neb 3 ML IH SCH ×2 (04:17→07:42)
[2017-12-17 05:03] LABS: Basophils # 0.1 K/mcL (0.0-0.2); Basophils % 0.4 %; Eosinophils # 0.2 K/mcL (0.0-0.6); Eosinophils % 1.1 %; Hematocrit 32.2 % (37.5-50.1); Hemoglobin 10.2 g/dL (12.9-16.9); Immature Granulocytes % 1.4 % (0-4); Lymphocytes # 2.1 K/mcL (0.6-4.6); Lymphocytes % 12.5 %; Mean Corpuscular HGB Conc 31.7 g/dL (31.6-35.5); Mean Corpuscular Hemoglobin 30.7 pg (28.0-33.3); Mean Platelet Volume 8.7 fL (9.4-12.4); Monocytes # 2.4 K/mcL (0.0-1.3); Monocytes % 14.3 %; Neutrophils # 11.9 K/mcL (1.6-8.9); Nucleated Red Blood Cells 0.8 /100 WBC (0); Platelet Count 310 K/mcL (140-400); Red Blood Count 3.32 M/mcL (4.19-5.50); Red Cell Distribution Width 18.1 % (11.5-14.5); Segmented Neutrophils % 70.3 %
[2017-12-17] MEDS: Pantoprazole 40 MG VIAL IVP SCH ×2 (05:13→18:46)
[2017-12-17] MEDS: Valproic Acid Oral Soln 250 MG/5 ML UDC GTUBE SCH ×3 (05:14→18:45)
[2017-12-17] MEDS: *HR* HYDROcodone/Acet 5/325 mg TABLET PO PRN ×2 (05:15→15:43)
[2017-12-17 05:22] LABS: BUN/Creatinine Ratio 33 (6-26); Blood Urea Nitrogen 15 mg/dL (8-23); Calcium 8.4 mg/dL (8.6-10.3); Carbon Dioxide 26 mEq/L (23-29); Chloride 103 mEq/L (98-107); Glucose 185 mg/dL (70-105); Osmolality,Calculated 294 (280-300); Potassium 3.4 mEq/L (3.5-5.1); Sodium 139 mEq/L (136-145); eGFR For Non-African Americans > 60 (> 60)
[2017-12-17] MEDS: Insulin LISPRO 300 UNITS/3 ML VIAL SQ SCH ×3 (05:58→18:49)
[2017-12-17] MEDS: Budesonide/Formoterol 160/4.5 MDI IH SCH ×2 (07:42→22:31)
[2017-12-17] MEDS ORDERED: Ipratropium/Albuterol Neb 3 ML IH PRN (08:04)
[2017-12-17] MEDS: Aspirin 81 MG TAB.CHEW PO SCH (08:52)
[2017-12-17] MEDS: Piperacillin/Tazobactam 3.375 GM in 0.9 % Sodium Chloride Mini Bag 100 ML IVPB SCH ×2 (08:53→15:41)
[2017-12-17] MEDS: Furosemide 20 MG TABLET PO SCH ×2 (08:54→18:45)
[2017-12-17] MEDS ORDERED: Spironolactone 25 MG TABLET PO SCH (09:00)
--- NOTE | 2017-12-17 10:47 | Internal Med Progress Note ---
Hospitalist Progress Note - Encounter Date of Encounter: 12/17/17 Time of Encounter: 10:00 - Subjective Interval History: 67 y/o male who [facility]. No acute events overnight. Patient's duonebs were stopped because they were causing relfex tachycardia in the 120s. He received 5 mg IV lopressor which brought his rate down to 80s-90s. He is confused at baseline, and I was unable to obtain a significant history from patient. He is not having any complaints today. - Exam Vitals: Temp Pulse Resp BP Pulse Ox 98.8 F 123 18 111/75 91 12/17/17 07:16 12/17/17 07:16 12/17/17 07:42 12/17/17 07:16 12/17/17 07:42 Exam: Gen - well appearing male in no distress, A&O x1, patient is confused at baseline Heart - RRR NECK - no lymphadenopathy RESP - rhonchi present bilaterally, no respiratory distress GI - BS x4, soft abdomen, PEG tube is present VASC - radial and dorsal pulses palpable, no edema - Assessment and Plan (1) Severe sepsis Current Visit: Yes Status: Acute Assessment and Plan: Leukocytosis is improving 20.4 > 16.9 Lactic acidosis resolved at 1.3 Patient HR is 97 (2) Multifocal pneumonia Current Visit: Yes Status: Acute Assessment and Plan: Patient denies difficulty breathing O2 saturation is 98% on room air Continue zosyn Continue home symbicort Discontinued duonebs due to reflex tachycardia Started zopenex Q4hr PRN MRSA was negative so vacomycin was discontinued Will continue to monitor WBC count (3) Hematemesis Current Visit: Yes Status: Acute Assessment and Plan: Patient denies recent hematemesis EGD showed no active bleeding Duodenal biopsy taken due to duodenitis - awaiting path report Continue protonix (4) Atrial fibrillation Current Visit: Yes Status: Chronic Assessment and Plan: Continue cardizem Patient given 5mg IV metoprolol this AM due to tachycardia in 120s > heart rate now 90s Continue metoprolol 50 mg PO BID Aspirin started again Plavix started again Will monitor with EKG if patient becomes symptomatic (5) Diabetes Current Visit: No Status: Chronic (6) Sacral decubitus ulcer Current Visit: Yes Status: Chronic Assessment and Plan: Wound care on consult (7) CHF (congestive heart failure) Current Visit: No Status: Chronic Assessment and Plan: Patient's last EF was 55% Resume home medication of lasix 20 mg BID Resume home spironolactone (8) Chronic kidney disease, stage II (mild) Current Visit: Yes Status: Chronic Assessment and Plan: Patient Cr is 0.45 Hgb is 10.2 Will continue to monitor kidney function (9) HTN (hypertension) Current Visit: No Status: Chronic (10) HLD (hyperlipidemia) Current Visit: No Status: Chronic DVT Prophylaxis: IPCDs - Time Spent with Patient Total time spent is greater than 50% in coordination of care (as documented) at patient's floor/unit and/or counseling patient: 25 - 35 minutes Plan of Care Discussed with: nurse Internal Medicine: Result - Labs CBC & Chem 7: 12/17/17 04:31 12/17/17 04:31 Labs: Short CBC 12/17/17 Range/Units 04:31 WBC 16.9 H (4.3-11.1) K/mcL Hgb 10.2 L (12.9-16.9) g/dL Hct 32.2 L (37.5-50.1) % Plt Count 310 (140-400) K/mcL Neutrophils # 11.9 H (1.6-8.9) K/mcL BMP 12/17/17 04:31 Sodium 139 Potassium 3.4 L Chloride 103 Carbon Dioxide 26 BUN 15 Creatinine 0.45 L Glucose 185 H Calcium 8.4 L - ABG Interpretation ABG results: ABG ABG pH 7.42 pH Units (7.32-7.45) 12/13/17 05:38 ABG pCO2 44 mmHg (35-45) 12/13/17 05:38 ABG pO2 146 mmHg (85-104) H 12/13/17 05:38 ABG O2 Saturation 99 % (95-98) H 12/13/17 05:38 PT/INR, D-dimer PT 13.6 Seconds (9.4-12.1) H 12/13/17 00:25 - VTE Documentation of Mechanical Device: Intermittent pneumatic compression device Consult Discharge Plan - Plan [facility] [Primary Care Provider[facility] - (4) Atrial fibrillation Qualifiers: Atrial fibrillation type: permanent Qualified Code(s): I48.2 - Chronic atrial fibrillation (5) Diabetes Qualifiers: Diabetes mellitus type: type 2 Diabetes mellitus mcc insulin use: with mcc use Diabetes mellitus complication status: without complication Qualified Code(s): E11.9 - Type 2 diabetes mellitus without complications; Z79.4 - snf (current) use of insulin (9) HTN (hypertension) Qualifiers: Hypertension type: essential hypertension Qualified Code(s): I10 - Essential (primary) hypertension (10) HLD (hyperlipidemia) Qualifiers: Hyperlipidemia type: mixed hyperlipidemia Qualified Code(s): E78.2 - Mixed hyperlipidemia
--- NOTE | 2017-12-17 16:36 | Event Note ---
Date of Encounter: 12/17/17 Time of Encounter: 09:00 I have seen and examined this patient independently. I have discussed with resident physician Dr. Galdamez regarding the management plan. Details please refer to his note.
[2017-12-17] MEDS ORDERED: Albuterol 2.5 MG/3 ML NEBULIZER IH PRN (17:41)
[2017-12-17] MEDS ORDERED: Insulin DETEMIR 100 UNIT/ML X5UNITS SQ SCH (21:00)
[2017-12-18] MEDS: Valproic Acid Oral Soln 250 MG/5 ML UDC GTUBE SCH ×5 (00:01→23:54)
[2017-12-18] MEDS: Piperacillin/Tazobactam 3.375 GM in 0.9 % Sodium Chloride Mini Bag 100 ML IVPB SCH ×4 (00:01→23:54)
[2017-12-18] MEDS: Insulin LISPRO 300 UNITS/3 ML VIAL SQ SCH ×4 (00:42→17:18)
[2017-12-18 03:48] LABS: Basophils # 0.1 K/mcL (0.0-0.2); Basophils % 0.4 %; Eosinophils # 0.4 K/mcL (0.0-0.6); Eosinophils % 2.4 %; Hematocrit 32.1 % (37.5-50.1); Hemoglobin 10.3 g/dL (12.9-16.9); Immature Granulocytes % 1.8 % (0-4); Lymphocytes # 2.3 K/mcL (0.6-4.6); Lymphocytes % 15.4 %; Mean Corpuscular HGB Conc 32.1 g/dL (31.6-35.5); Mean Corpuscular Hemoglobin 32.1 pg (28.0-33.3); Mean Platelet Volume 8.7 fL (9.4-12.4); Monocytes # 1.8 K/mcL (0.0-1.3); Monocytes % 12.4 %; Neutrophils # 9.9 K/mcL (1.6-8.9); Platelet Count 280 K/mcL (140-400); Red Blood Count 3.21 M/mcL (4.19-5.50); Red Cell Distribution Width 18.2 % (11.5-14.5); Segmented Neutrophils % 67.6 %
[2017-12-18 04:16] LABS: BUN/Creatinine Ratio 24 (6-26); Blood Urea Nitrogen 12 mg/dL (8-23); Calcium 8.2 mg/dL (8.6-10.3); Carbon Dioxide 30 mEq/L (23-29); Chloride 102 mEq/L (98-107); Glucose 251 mg/dL (70-105); Osmolality,Calculated 294 (280-300); Potassium 3.4 mEq/L (3.5-5.1); Sodium 138 mEq/L (136-145); eGFR For Non-African Americans > 60 (> 60)
[2017-12-18] MEDS ORDERED: Ondansetron 4 MG/2 ML VIAL IVP PRN (06:14)
[2017-12-18] MEDS: Pantoprazole 40 MG VIAL IVP SCH (06:20)
[2017-12-18] MEDS ORDERED: Nitroglycerin 0.4 MG TAB.SUBL SL PRN (07:50)
[2017-12-18] MEDS ORDERED: Fluticasone Propionate Nasal 50 MCG/SPRAY BOTTLE NS PRN (07:50)
[2017-12-18] MEDS: Furosemide 20 MG TABLET PO SCH ×2 (07:53→17:08)
[2017-12-18] MEDS: Aspirin 81 MG TAB.CHEW PO SCH (07:53)
[2017-12-18] MEDS: Spironolactone 25 MG TABLET GTUBE SCH (07:54)
[2017-12-18] MEDS ORDERED: Insulin DETEMIR 100 UNIT/ML X5UNITS SQ SCH ×2 (08:00→21:00)
[2017-12-18] MEDS ORDERED: Pantoprazole 40 MG VIAL IVP SCH (09:00)
[2017-12-18] MEDS: Isosorbide MONOnitrate (24 HR) 30 MG TAB.ER.24H PO SCH (09:29)
[2017-12-18] MEDS: Pregabalin 75 MG CAPSULE PO SCH ×2 (09:29→22:22)
[2017-12-18] MEDS: Methocarbamol 750 MG TABLET PO SCH ×4 (09:33→22:22)
[2017-12-18] MEDS: Budesonide/Formoterol 160/4.5 MDI IH SCH ×2 (11:22→23:29)
[2017-12-18] MEDS: *HR* HYDROcodone/Acet 5/325 mg TABLET PO PRN ×2 (11:30→22:26)
--- NOTE | 2017-12-18 14:11 | Internal Med Progress Note ---
<Israel Galdamez - Last Filed: 12/18/17 14:21> Hospitalist Progress Note - Encounter Date of Encounter: 12/18/17 Time of Encounter: 09:30 - Subjective Interval History: 67 y/o male who presented to [facility] from the [place] for hematemesis. No acute events overnight. He is confused at baseline. He is not having any complaints today. - Exam Vitals: Temp Pulse Resp BP Pulse Ox 98.1 F 100 16 109/81 93 12/18/17 11:26 12/18/17 11:26 12/18/17 11:26 12/18/17 11:26 12/18/17 11:26 Exam: Gen: no acute distress, A&O x1 Heart: RRR Lungs: rhonchi present bilaterally, improved from previous exam GI: abdomen soft, non-tender, non-distended, PEG tube intact Vascular: pulses +2 in UE and LE Extremities: no edema - Assessment and Plan (1) Multifocal pneumonia Current Visit: Yes Status: Acute Assessment and Plan: Patient denies difficulty breathing O2 saturation is 98% on room air Continue zosyn for 1 day, then switch to PO augmentin for 3 days Leukocytosis improving 16.9 > 14.7 today Continue home symbicort Discontinued duonebs due to reflex tachycardia Started zopenex Q4hr PRN Will continue to monitor WBC count Likely discharge tomorrow to [place] (2) Atrial fibrillation with RVR Current Visit: Yes Status: Chronic Assessment and Plan: Continue cardizem Continue metoprolol 50 mg PO BID Continue aspirin Continue plavix Will monitor with EKG if patient becomes symptomatic (3) Severe sepsis Current Visit: Yes Status: Acute Assessment and Plan: Resolved Leukocytosis is improving 16.9 > 14.7 Lactic acidosis resolved at 1.3 Patient HR is 97 (4) CHF (congestive heart failure) Current Visit: Yes Status: Chronic Assessment and Plan: Patient's last EF was 55% Resume home medication of lasix 20 mg BID Resume home spironolactone (5) DM2 (diabetes mellitus, type 2) Current Visit: Yes Status: Chronic Assessment and Plan: Continue insulin lispro Continue insulin detemir (6) Aspiration pneumonia Current Visit: Yes Status: Suspected Assessment and Plan: Continue zosyn for 1 day, then switch to PO augmentin Leukocytosis improving 16.9 > 14.7 (7) Stage III pressure ulcer Current Visit: Yes Status: Chronic Assessment and Plan: Wound care on consult (8) COPD (chronic obstructive pulmonary disease) Current Visit: Yes Status: Chronic Assessment and Plan: Patient currently saturating at 97% on room air (9) History of CVA (cerebrovascular accident) Current Visit: Yes Status: Acute Assessment and Plan: Confused at baseline On Statin On aspirin (10) HLD (hyperlipidemia) Current Visit: Yes Status: Acute Assessment and Plan: Continue atorvastatin (11) Hematemesis Current Visit: Yes Status: Acute Assessment and Plan: Resolved EGD was negative for active bleeding Continue protonix DVT Prophylaxis: SCDs - Time Spent with Patient Total time spent is greater than 50% in coordination of care (as documented) at patient's floor/unit and/or counseling patient: 25 - 35 minutes Plan of Care Discussed with: patient Internal Medicine: Result - Labs CBC & Chem 7: 12/18/17 03:13 12/18/17 03:13 Labs: Short CBC 12/18/17 Range/Units 03:13 WBC 14.7 H (4.3-11.1) K/mcL Hgb 10.3 L (12.9-16.9) g/dL Hct 32.1 L (37.5-50.1) % Plt Count 280 (140-400) K/mcL Neutrophils # 9.9 H (1.6-8.9) K/mcL BMP 12/18/17 03:13 Sodium 138 Potassium 3.4 L Chloride 102 Carbon Dioxide 30 H BUN 12 Creatinine 0.50 L Glucose 251 H Calcium 8.2 L - ABG Interpretation ABG results: ABG ABG pH 7.42 pH Units (7.32-7.45) 12/13/17 05:38 ABG pCO2 44 mmHg (35-45) 12/13/17 05:38 ABG pO2 146 mmHg (85-104) H 12/13/17 05:38 ABG O2 Saturation 99 % (95-98) H 12/13/17 05:38 PT/INR, D-dimer PT 13.6 Seconds (9.4-12.1) H 12/13/17 00:25 - VTE Documentation of Mechanical Device: Intermittent pneumatic compression device Consult Discharge Plan - Plan [facility]errals: [facility] [Primary Care Provider] - <Vanessa Lan - Last Filed: 12/18/17 15:44> Hospitalist Progress Note - Encounter Date of Encounter: 12/18/17 - Exam Vitals: Temp Pulse Resp BP Pulse Ox 98.1 F 100 16 109/81 93 12/18/17 11:26 12/18/17 11:26 12/18/17 11:26 12/18/17 11:26 12/18/17 11:26 - Assessment and Plan (1) Multifocal pneumonia Current Visit: Yes Status: Acute (2) Severe sepsis Current Visit: Yes Status: Acute (3) Atrial fibrillation with RVR Current Visit: Yes Status: Chronic (4) CHF (congestive heart failure) Current Visit: Yes Status: Chronic (5) DM2 (diabetes mellitus, type 2) Current Visit: Yes Status: Chronic (6) Aspiration pneumonia Current Visit: Yes Status: Suspected (7) COPD (chronic obstructive pulmonary disease) Current Visit: Yes Status: Chronic (8) History of CVA (cerebrovascular accident) Current Visit: Yes Status: Acute (9) HLD (hyperlipidemia) Current Visit: Yes Status: Acute (10) Stage III pressure ulcer Current Visit: Yes Status: Chronic (11) Hematemesis Current Visit: Yes Status: Acute - Time Spent with Patient Total time spent is greater than 50% in coordination of care (as documented) at patient's floor/unit and/or counseling patient: Internal Medicine: Result - Labs CBC & Chem 7: 12/18/17 03:13 12/18/17 03:13 Labs: Short CBC 12/18/17 Range/Units 03:13 WBC 14.7 H (4.3-11.1) K/mcL Hgb 10.3 L (12.9-16.9) g/dL Hct 32.1 L (37.5-50.1) % Plt Count 280 (140-400) K/mcL Neutrophils # 9.9 H (1.6-8.9) K/mcL BMP 12/18/17 03:13 Sodium 138 Potassium 3.4 L Chloride 102 Carbon Dioxide 30 H BUN 12 Creatinine 0.50 L Glucose 251 H Calcium 8.2 L - ABG Interpretation ABG results: ABG ABG pH 7.42 pH Units (7.32-7.45) 12/13/17 05:38 ABG pCO2 44 mmHg (35-45) 12/13/17 05:38 ABG pO2 146 mmHg (85-104) H 12/13/17 05:38 ABG O2 Saturation 99 % (95-98) H 12/13/17 05:38 PT/INR, D-dimer PT 13.6 Seconds (9.4-12.1) H 12/13/17 00:25 - Attending Attestation I have seen and examined this patient independently. I have discussed with resident physician Dr. Galdamez regarding the management plan. Agree with the documentation. <Israel Galdamez - Last Filed: 12/18/17 14:21> (4) CHF (congestive heart failure) Qualifiers: Heart failure type: unspecified (5) DM2 (diabetes mellitus, type 2) Qualifiers: Diabetes mellitus senior living insulin use: with truck terminal manager use Diabetes mellitus complication status: with circulatory complication Diabetes mellitus complication detail: with other circulatory complications Qualified Code(s): E11.59 - Type 2 diabetes mellitus with other circulatory complications; Z79.4 - laborer marine terminal (current) use of insulin (6) Aspiration pneumonia Qualifiers: Aspiration pneumonia type: due to vomit Laterality: bilateral Lung location : unspecified part of lung Qualified Code(s): J69.0 - Pneumonitis due to inhalation of food and vomit (7) Stage III pressure ulcer Qualifiers: Pressure injury location: sacral region Qualified Code(s): L89.153 - Pressure ulcer of sacral region, stage 3 (8) COPD (chronic obstructive pulmonary disease) Qualifiers: COPD type: emphysema Emphysema type: unspecified Qualified Code(s): J43.9 - Emphysema, unspecified (10) HLD (hyperlipidemia) Qualifiers: Hyperlipidemia type: unspecified Qualified Code(s): E78.5 - Hyperlipidemia, unspecified <Lan,Yinzhong - Last Filed: 12/18/17 15:44> (4) CHF (congestive heart failure) Qualifiers: Heart failure type: unspecified (5) DM2 (diabetes mellitus, type 2) Qualifiers: Diabetes mellitus truck terminal manager insulin use: with senior living use Diabetes mellitus complication status: with circulatory complication Diabetes mellitus complication detail: with other circulatory complications Qualified Code(s): E11.59 - Type 2 diabetes mellitus with other circulatory complications; Z79.4 - care home (current) use of insulin (6) Aspiration pneumonia Qualifiers: Aspiration pneumonia type: due to vomit Laterality: bilateral Lung location : unspecified part of lung Qualified Code(s): J69.0 - Pneumonitis due to inhalation of food and vomit (7) COPD (chronic obstructive pulmonary disease) Qualifiers: COPD type: emphysema Emphysema type: unspecified Qualified Code(s): J43.9 - Emphysema, unspecified (9) HLD (hyperlipidemia) Qualifiers: Hyperlipidemia type: unspecified Qualified Code(s): E78.5 - Hyperlipidemia, unspecified (10) Stage III pressure ulcer Qualifiers: Pressure injury location: sacral region Qualified Code(s): L89.153 - Pressure ulcer of sacral region, stage 3
[2017-12-19] MEDS: Insulin LISPRO 300 UNITS/3 ML VIAL SQ SCH ×5 (00:13→23:11)
[2017-12-19] MEDS: *HR* Metoprolol 5 MG/5 ML VIAL IVP PRN (01:21)
[2017-12-19 01:47] LABS: Basophils # 0.1 K/mcL (0.0-0.2); Basophils % 0.5 %; Eosinophils # 0.5 K/mcL (0.0-0.6); Hematocrit 32.6 % (37.5-50.1); Hemoglobin 10.4 g/dL (12.9-16.9); Immature Granulocytes % 1.5 % (0-4); Lymphocytes % 12.9 %; Mean Corpuscular HGB Conc 31.9 g/dL (31.6-35.5); Mean Corpuscular Hemoglobin 31.9 pg (28.0-33.3); Mean Platelet Volume 8.6 fL (9.4-12.4); Monocytes # 1.4 K/mcL (0.0-1.3); Monocytes % 9.1 %; Neutrophils # 11.1 K/mcL (1.6-8.9); Nucleated Red Blood Cells 0.5 /100 WBC (0); Platelet Count 287 K/mcL (140-400); Red Blood Count 3.26 M/mcL (4.19-5.50); Red Cell Distribution Width 18.1 % (11.5-14.5)
[2017-12-19 02:10] LABS: BUN/Creatinine Ratio 24 (6-26); Blood Urea Nitrogen 12 mg/dL (8-23); Calcium 8.2 mg/dL (8.6-10.3); Carbon Dioxide 28 mEq/L (23-29); Chloride 102 mEq/L (98-107); Glucose 292 mg/dL (70-105); Osmolality,Calculated 295 (280-300); Potassium 3.6 mEq/L (3.5-5.1); Sodium 137 mEq/L (136-145); eGFR For Non-African Americans > 60 (> 60)
[2017-12-19] MEDS: Valproic Acid Oral Soln 250 MG/5 ML UDC GTUBE SCH ×3 (06:30→16:56)
[2017-12-19] MEDS: Spironolactone 25 MG TABLET GTUBE SCH (10:07)
[2017-12-19] MEDS: Lactobacillus 1 EACH CAP.SPRINK GTUBE SCH (10:07)
[2017-12-19] MEDS: Isosorbide MONOnitrate (24 HR) 30 MG TAB.ER.24H PO SCH (10:08)
[2017-12-19] MEDS: Pregabalin 75 MG CAPSULE GTUBE SCH ×2 (10:08→22:58)
[2017-12-19] MEDS: Furosemide 20 MG TABLET PO SCH (10:08)
[2017-12-19] MEDS: Methocarbamol 750 MG TABLET GTUBE SCH ×4 (10:08→22:59)
[2017-12-19] MEDS: Aspirin 81 MG TAB.CHEW GTUBE SCH (10:09)
[2017-12-19] MEDS: Budesonide/Formoterol 160/4.5 MDI IH SCH ×2 (11:10→20:06)
[2017-12-19] MEDS: Insulin DETEMIR 100 UNIT/ML X5UNITS SQ SCH ×2 (14:10→23:11)
[2017-12-19] MEDS: Furosemide Oral Soln 40 MG/4 ML UDC GTUBE SCH (16:56)
--- NOTE | 2017-12-19 17:27 | Internal Med Progress Note ---
<Israel Galdamez - Last Filed: 12/19/17 17:24> Hospitalist Progress Note - Encounter Date of Encounter: 12/19/17 Time of Encounter: 10:30 - Subjective Interval History: 67 y/o male who presented to [facility] from the [place] for hematemesis and pneumonia. No acute events overnight. He is confused at baseline. He is not having any complaints today. We discussed the plan of care with his today, and she is in agreement for us to keep him one more day to watch WBCs and HR, and if stable we [facility]. - Exam Vitals: Temp Pulse Resp BP Pulse Ox 98.8 F 94 18 102/50 91 12/19/17 16:32 12/19/17 16:32 12/19/17 16:32 12/19/17 16:32 12/19/17 16:32 Exam: Gen: no acute distress, A&O x1 Heart: RRR Lungs: rhonchi present bilaterally, improved from previous exam GI: abdomen soft, non-tender, non-distended, PEG tube intact Vascular: pulses +2 in UE and LE Extremities: no edema, residual weakness in left UE and LE - Assessment and Plan (1) Multifocal pneumonia Current Visit: Yes Status: Acute Assessment and Plan: Patient denies difficulty breathing O2 saturation is 98% on room air Finished course of zosyn, switched to PO augmentin for 7 days Leukocytosis stable 14.7 > 15.2 today Continue home symbicort Discontinued duonebs due to reflex tachycardia Started zopenex Q4hr PRN Will continue to monitor WBC count [facility] (2) Atrial fibrillation with RVR Current Visit: Yes Status: Chronic Assessment and Plan: Patient's HR was in 130s today Continue cardizem Increased metoprolol to 75 mg PO BID Continue aspirin Will monitor with EKG if patient becomes symptomatic Likely discharge patient to [place] tomorrow if heart rate is controlled (3) Severe sepsis Current Visit: Yes Status: Acute Assessment and Plan: Resolved Leukocytosis is improving 15.2 Lactic acidosis resolved at 1.3 (4) CHF (congestive heart failure) Current Visit: Yes Status: Chronic Assessment and Plan: Patient's last EF was 55% Resume home medication of lasix 20 mg BID Resume home spironolactone (5) DM2 (diabetes mellitus, type 2) Current Visit: Yes Status: Chronic Assessment and Plan: Patient's glucose was elevated today at 292 Gave 30 units of levemir this AM, and will increase frequency to levemir 30 units BID Contiue insulin lispro Will continue to monitor (6) Aspiration pneumonia Current Visit: Yes Status: Suspected Assessment and Plan: Patient finished course of zosyn Will start PO augmentin for 7 days (7) Stage III pressure ulcer Current Visit: Yes Status: Chronic Assessment and Plan: Wound care on consult (8) COPD (chronic obstructive pulmonary disease) Current Visit: Yes Status: Chronic Assessment and Plan: Patient saturating at 94% on room air (9) History of CVA (cerebrovascular accident) Current Visit: Yes Status: Acute Assessment and Plan: Continue aspirin (10) HLD (hyperlipidemia) Current Visit: Yes Status: Acute Assessment and Plan: Continue atorvastatin (11) Hematemesis Current Visit: Yes Status: Acute Assessment and Plan: Resolved Continue protonix DVT Prophylaxis: SCDs - Time Spent with Patient Total time spent is greater than 50% in coordination of care (as documented) at patient's floor/unit and/or counseling patient: 25 - 35 minutes Plan of Care Discussed with: family Internal Medicine: Result - Labs CBC & Chem 7: 12/19/17 01:09 12/19/17 01:09 Labs: Short CBC 12/19/17 Range/Units 01:09 WBC 15.2 H (4.3-11.1) K/mcL Hgb 10.4 L (12.9-16.9) g/dL Hct 32.6 L (37.5-50.1) % Plt Count 287 (140-400) K/mcL Neutrophils # 11.1 H (1.6-8.9) K/mcL BMP 12/19/17 01:09 Sodium 137 Potassium 3.6 Chloride 102 Carbon Dioxide 28 BUN 12 Creatinine 0.49 L Glucose 292 H Calcium 8.2 L - ABG Interpretation ABG results: ABG ABG pH 7.42 pH Units (7.32-7.45) 12/13/17 05:38 ABG pCO2 44 mmHg (35-45) 12/13/17 05:38 ABG pO2 146 mmHg (85-104) H 12/13/17 05:38 ABG O2 Saturation 99 % (95-98) H 12/13/17 05:38 PT/INR, D-dimer PT 13.6 Seconds (9.4-12.1) H 12/13/17 00:25 - VTE Documentation of Mechanical Device: Intermittent pneumatic compression device Consult Discharge Plan - Plan Referrals: [facility] [Primary Care Provider] - <LanMarnijorgejarethcharlene - Last Filed: 12/19/17 18:54> Hospitalist Progress Note - Encounter Date of Encounter: 12/19/17 - Exam Vitals: Temp Pulse Resp BP Pulse Ox 98.9 F 78 18 104/52 93 12/19/17 18:40 12/19/17 18:40 12/19/17 18:40 12/19/17 18:40 12/19/17 18:40 - Assessment and Plan (1) Multifocal pneumonia Current Visit: Yes Status: Acute (2) Severe sepsis Current Visit: Yes Status: Acute (3) Atrial fibrillation with RVR Current Visit: Yes Status: Chronic (4) CHF (congestive heart failure) Current Visit: Yes Status: Chronic (5) DM2 (diabetes mellitus, type 2) Current Visit: Yes Status: Chronic (6) Aspiration pneumonia Current Visit: Yes Status: Suspected (7) COPD (chronic obstructive pulmonary disease) Current Visit: Yes Status: Chronic (8) History of CVA (cerebrovascular accident) Current Visit: Yes Status: Acute (9) HLD (hyperlipidemia) Current Visit: Yes Status: Acute (10) Stage III pressure ulcer Current Visit: Yes Status: Chronic (11) Hematemesis Current Visit: Yes Status: Acute - Time Spent with Patient Total time spent is greater than 50% in coordination of care (as documented) at patient's floor/unit and/or counseling patient: Internal Medicine: Result - Labs CBC & Chem 7: 12/19/17 01:09 12/19/17 01:09 Labs: Short CBC 12/19/17 Range/Units 01:09 WBC 15.2 H (4.3-11.1) K/mcL Hgb 10.4 L (12.9-16.9) g/dL Hct 32.6 L (37.5-50.1) % Plt Count 287 (140-400) K/mcL Neutrophils # 11.1 H (1.6-8.9) K/mcL BMP 12/19/17 01:09 Sodium 137 Potassium 3.6 Chloride 102 Carbon Dioxide 28 BUN 12 Creatinine 0.49 L Glucose 292 H Calcium 8.2 L - ABG Interpretation ABG results: ABG ABG pH 7.42 pH Units (7.32-7.45) 12/13/17 05:38 ABG pCO2 44 mmHg (35-45) 12/13/17 05:38 ABG pO2 146 mmHg (85-104) H 12/13/17 05:38 ABG O2 Saturation 99 % (95-98) H 12/13/17 05:38 PT/INR, D-dimer PT 13.6 Seconds (9.4-12.1) H 12/13/17 00:25 - Attending Attestation I have seen and examined this patient independently. I have discussed with the resident physician Dr. Galdamez regarding the management plan. Agree with the documentation. <Israel Galdamez S - Last Filed: 12/19/17 17:24> (4) CHF (congestive heart failure) Qualifiers: Heart failure type: unspecified (5) DM2 (diabetes mellitus, type 2) Qualifiers: Diabetes mellitus parts counterman insulin use: with skilled nursing use Diabetes mellitus complication status: with circulatory complication Diabetes mellitus complication detail: with other circulatory complications Qualified Code(s): E11.59 - Type 2 diabetes mellitus with other circulatory complications; Z79.4 - halfway (current) use of insulin (6) Aspiration pneumonia Qualifiers: Aspiration pneumonia type: due to vomit Laterality: bilateral Lung location : unspecified part of lung Qualified Code(s): J69.0 - Pneumonitis due to inhalation of food and vomit (7) Stage III pressure ulcer Qualifiers: Pressure injury location: sacral region Qualified Code(s): L89.153 - Pressure ulcer of sacral region, stage 3 (8) COPD (chronic obstructive pulmonary disease) Qualifiers: COPD type: emphysema Emphysema type: unspecified Qualified Code(s): J43.9 - Emphysema, unspecified (10) HLD (hyperlipidemia) Qualifiers: Hyperlipidemia type: unspecified Qualified Code(s): E78.5 - Hyperlipidemia, unspecified <Vanessa Lan - Last Filed: 12/19/17 18:54> (4) CHF (congestive heart failure) Qualifiers: Heart failure type: unspecified (5) DM2 (diabetes mellitus, type 2) Qualifiers: Diabetes mellitus parts counterman insulin use: with parts counterman use Diabetes mellitus complication status: with circulatory complication Diabetes mellitus complication detail: with other circulatory complications Qualified Code(s): E11.59 - Type 2 diabetes mellitus with other circulatory complications; Z79.4 - halfway (current) use of insulin (6) Aspiration pneumonia Qualifiers: Aspiration pneumonia type: due to vomit Laterality: bilateral Lung location : unspecified part of lung Qualified Code(s): J69.0 - Pneumonitis due to inhalation of food and vomit (7) COPD (chronic obstructive pulmonary disease) Qualifiers: COPD type: emphysema Emphysema type: unspecified Qualified Code(s): J43.9 - Emphysema, unspecified (9) HLD (hyperlipidemia) Qualifiers: Hyperlipidemia type: unspecified Qualified Code(s): E78.5 - Hyperlipidemia, unspecified (10) Stage III pressure ulcer Qualifiers: Pressure injury location: sacral region Qualified Code(s): L89.153 - Pressure ulcer of sacral region, stage 3
[2017-12-20] MEDS: Valproic Acid Oral Soln 250 MG/5 ML UDC GTUBE SCH ×4 (01:04→18:12)
[2017-12-20] MEDS: *HR* Metoprolol 5 MG/5 ML VIAL IVP PRN ×2 (05:10→10:45)
[2017-12-20] MEDS: *HR* HYDROcodone/Acet 5/325 mg TABLET GTUBE PRN (05:42)
[2017-12-20] MEDS: Insulin LISPRO 300 UNITS/3 ML VIAL SQ SCH ×3 (05:44→18:36)
[2017-12-20 06:41] LABS: Basophils # 0.1 K/mcL (0.0-0.2); Basophils % 0.3 %; Eosinophils # 0.3 K/mcL (0.0-0.6); Eosinophils % 1.6 %; Hemoglobin 10.3 g/dL (12.9-16.9); Immature Granulocytes % 1.9 % (0-4); Lymphocytes % 16.3 %; Mean Corpuscular HGB Conc 32.2 g/dL (31.6-35.5); Mean Corpuscular Hemoglobin 31.6 pg (28.0-33.3); Mean Corpuscular Volume 98.2 fL (83.0-100.0); Mean Platelet Volume 8.5 fL (9.4-12.4); Monocytes # 1.9 K/mcL (0.0-1.3); Monocytes % 10.3 %; Neutrophils # 12.8 K/mcL (1.6-8.9); Nucleated Red Blood Cells 0.5 /100 WBC (0); Platelet Count 311 K/mcL (140-400); Red Blood Count 3.26 M/mcL (4.19-5.50); Red Cell Distribution Width 17.7 % (11.5-14.5); Segmented Neutrophils % 69.6 %
[2017-12-20 07:05] LABS: BUN/Creatinine Ratio 25 (6-26); Blood Urea Nitrogen 10 mg/dL (8-23); Calcium 8.5 mg/dL (8.6-10.3); Carbon Dioxide 27 mEq/L (23-29); Chloride 100 mEq/L (98-107); Glucose 73 mg/dL (70-105); Osmolality,Calculated 276 (280-300); Potassium 3.7 mEq/L (3.5-5.1); Sodium 134 mEq/L (136-145); eGFR For Non-African Americans > 60 (> 60)
[2017-12-20] MEDS: Furosemide Oral Soln 40 MG/4 ML UDC GTUBE SCH ×2 (08:24→18:22)
[2017-12-20] MEDS: Potassium Chloride Elixir 20 MEQ/15 ML UDC GTUBE SCH (08:24)
[2017-12-20] MEDS: Pregabalin 75 MG CAPSULE GTUBE SCH ×2 (08:26→21:45)
[2017-12-20] MEDS: Methocarbamol 750 MG TABLET GTUBE SCH ×5 (08:26→21:45)
[2017-12-20] MEDS: Spironolactone 25 MG TABLET GTUBE SCH (08:26)
[2017-12-20] MEDS: Isosorbide MONOnitrate (24 HR) 30 MG TAB.ER.24H PO SCH (08:26)
[2017-12-20] MEDS: Aspirin 81 MG TAB.CHEW GTUBE SCH (08:26)
[2017-12-20] MEDS: Lactobacillus 1 EACH CAP.SPRINK GTUBE SCH (08:26)
[2017-12-20] MEDS: Insulin DETEMIR 100 UNIT/ML X5UNITS SQ SCH ×2 (08:27→21:46)
[2017-12-20] MEDS: Levalbuterol Neb 0.63 MG/3 ML IH SCH ×5 (08:32→23:49)
[2017-12-20] MEDS: Budesonide/Formoterol 160/4.5 MDI IH SCH ×2 (08:33→21:15)
[2017-12-20] MEDS: Acetylcysteine 10% 2 ML INHSOL IH SCH ×4 (11:30→23:49)
--- NOTE | 2017-12-20 12:36 | Internal Med Progress Note ---
Hospitalist Progress Note - Encounter Date of Encounter: 12/20/17 Time of Encounter: 09:00 - Subjective Interval History: Patient has increased cough. No fever. Remains disoriented at baseline. Looks in no acute respiratory distress. No diarrhea per nursing record. - Exam Vitals: Temp Pulse Resp BP Pulse Ox 98.3 F 104 20 125/82 92 12/20/17 11:09 12/20/17 11:09 12/20/17 11:32 12/20/17 11:09 12/20/17 11:32 Exam: Patient is disoriented, in no acute distress. HEENT: NC/AT, PERRL Neck: Supple, no LAD Lungs: Scattered rhonchi bilaterally, left > right Heart: S1S2, irregular Abd: Soft, NT, BS normal. Ext: ROM wnl, mild b/l pedal edema Neuro: Disoriented, no focal neuro deficit - Assessment and Plan (1) Multifocal pneumonia Current Visit: Yes Status: Acute Assessment and Plan: Pt has elevated WBC and worsen cough. Consider re-aspiration as pt has high risk of aspiration, VS HAP. - Will restart iv abx, vanco and zosyn to cover HAP and aspiration. - Cont supportive treatment with O2, add mucomyst IH and facilate sputum expelling. Consult pulmonary rehab. (2) Severe sepsis Current Visit: Yes Status: Acute Assessment and Plan: Resolved. However, elevation of WBC and CXR shows worsen infiltrate makes pt in high risk of sepsis again. (3) Atrial fibrillation with RVR Current Visit: Yes Status: Chronic Assessment and Plan: Patient's HR was slightly get down Continue cardizem Cont metoprolol to 75 mg PO BID Pt is not on any anticoagulation b/f hx of intracranial hemorrhage. On ASA 81mg po daily. (4) CHF (congestive heart failure) Current Visit: Yes Status: Chronic Assessment and Plan: Patient's last EF was 55% Resume home medication of lasix 20 mg BID Resume home spironolactone (5) DM2 (diabetes mellitus, type 2) Current Visit: Yes Status: Chronic Assessment and Plan: On basal and SSI. Adjust dose according to Glu level. (6) Aspiration pneumonia Current Visit: Yes Status: Suspected Assessment and Plan: Possibly re-aspiration. Restart iv abx. (7) COPD (chronic obstructive pulmonary disease) Current Visit: Yes Status: Chronic Assessment and Plan: No wheezing, cont Neb and symbicort. (8) History of CVA (cerebrovascular accident) Current Visit: Yes Status: Acute Assessment and Plan: Continue aspirin. Pt has hx of both ischemic and hemorrhagic CVA. (9) HLD (hyperlipidemia) Current Visit: Yes Status: Acute Assessment and Plan: Continue atorvastatin (10) Stage III pressure ulcer Current Visit: Yes Status: Chronic Assessment and Plan: Wound care on consult (11) Hematemesis Current Visit: Yes Status: Acute Assessment and Plan: Resolved Continue protonix DVT Prophylaxis: EPCDs - Time Spent with Patient Total time spent is greater than 50% in coordination of care (as documented) at patient's floor/unit and/or counseling patient: 40 min Greater than 35 minutes Plan of Care Discussed with: family Internal Medicine: Result - Labs CBC & Chem 7: 12/20/17 06:01 12/20/17 06:01 Labs: Short CBC 12/20/17 Range/Units 06:01 WBC 18.3 H (4.3-11.1) K/mcL Hgb 10.3 L (12.9-16.9) g/dL Hct 32.0 L (37.5-50.1) % Plt Count 311 (140-400) K/mcL Neutrophils # 12.8 H (1.6-8.9) K/mcL BMP 12/20/17 06:01 Sodium 134 L Potassium 3.7 Chloride 100 Carbon Dioxide 27 BUN 10 Creatinine 0.40 L Glucose 73 Calcium 8.5 L - ABG Interpretation ABG results: ABG ABG pH 7.42 pH Units (7.32-7.45) 12/13/17 05:38 ABG pCO2 44 mmHg (35-45) 12/13/17 05:38 ABG pO2 146 mmHg (85-104) H 12/13/17 05:38 ABG O2 Saturation 99 % (95-98) H 12/13/17 05:38 PT/INR, D-dimer PT 13.6 Seconds (9.4-12.1) H 12/13/17 00:25 - Impressions Impressions Chest X-Ray 12/20/17 07:10 IMPRESSION: 1. Increased bibasilar atelectasis and/or pneumonia. 2. Unchanged diffuse interstitial opacities and bilateral perihilar airspace opacities, suggesting interstitial and alveolar edema in the setting of congestive heart failure given mild cardiomegaly. Pneumonia could appear similar. 3. Increased left pleural effusion of at least small volume. D/ / Abrahan Fair MD / Abrahan Fair MD Interpreting Provider: Abrahan Fair MD - VTE Documentation of Mechanical Device: Intermittent pneumatic compression device Consult Discharge Plan - Plan [facility]errals[facility] [Primary Care Provider] - (4) CHF (congestive heart failure) Qualifiers: Heart failure type: unspecified (5) DM2 (diabetes mellitus, type 2) Qualifiers: Diabetes mellitus [facility] insulin use: with [facility] use Diabetes mellitus complication status: with circulatory complication Diabetes mellitus complication detail: with other circulatory complications Qualified Code(s): E11.59 - Type 2 diabetes mellitus with other circulatory complications; Z79.4 - termination clerk (current) use of insulin (6) Aspiration pneumonia Qualifiers: Aspiration pneumonia type: due to vomit Laterality: bilateral Lung location : unspecified part of lung Qualified Code(s): J69.0 - Pneumonitis due to inhalation of food and vomit (7) COPD (chronic obstructive pulmonary disease) Qualifiers: COPD type: emphysema Emphysema type: unspecified Qualified Code(s): J43.9 - Emphysema, unspecified (9) HLD (hyperlipidemia) Qualifiers: Hyperlipidemia type: unspecified Qualified Code(s): E78.5 - Hyperlipidemia, unspecified (10) Stage III pressure ulcer Qualifiers: Pressure injury location: sacral region Qualified Code(s): L89.153 - Pressure ulcer of sacral region, stage 3
[2017-12-20] MEDS: Piperacillin/Tazobactam 3.375 GM in 0.9 % Sodium Chloride Mini Bag 100 ML IVPB SCH ×2 (13:02→18:26)
[2017-12-20] MEDS: Haloperidol Lactate 5 MG/ML VIAL IVP PRN (14:44)
[2017-12-21] MEDS: Insulin LISPRO 300 UNITS/3 ML VIAL SQ SCH ×4 (00:43→17:44)
[2017-12-21] MEDS: Piperacillin/Tazobactam 3.375 GM in 0.9 % Sodium Chloride Mini Bag 100 ML IVPB SCH ×3 (02:24→21:35)
[2017-12-21] MEDS: Levalbuterol Neb 0.63 MG/3 ML IH SCH ×6 (04:18→23:37)
[2017-12-21] MEDS: Acetylcysteine 10% 2 ML INHSOL IH SCH ×6 (04:18→23:37)
[2017-12-21 04:39] LABS: Basophils # 0.1 K/mcL (0.0-0.2); Basophils % 0.4 %; Eosinophils # 0.5 K/mcL (0.0-0.6); Eosinophils % 2.6 %; Hematocrit 35.5 % (37.5-50.1); Hemoglobin 11.5 g/dL (12.9-16.9); Immature Granulocytes % 1.9 % (0-4); Lymphocytes # 3.3 K/mcL (0.6-4.6); Lymphocytes % 17.4 %; Mean Corpuscular HGB Conc 32.4 g/dL (31.6-35.5); Mean Corpuscular Hemoglobin 31.6 pg (28.0-33.3); Mean Corpuscular Volume 97.5 fL (83.0-100.0); Mean Platelet Volume 8.7 fL (9.4-12.4); Monocytes # 1.8 K/mcL (0.0-1.3); Monocytes % 9.6 %; Neutrophils # 12.8 K/mcL (1.6-8.9); Nucleated Red Blood Cells 0.5 /100 WBC (0); Platelet Count 370 K/mcL (140-400); Red Blood Count 3.64 M/mcL (4.19-5.50); Segmented Neutrophils % 68.1 %
[2017-12-21 04:47] LABS: BUN/Creatinine Ratio 24 (6-26); Blood Urea Nitrogen 10 mg/dL (8-23); Calcium 8.7 mg/dL (8.6-10.3); Carbon Dioxide 28 mEq/L (23-29); Chloride 100 mEq/L (98-107); Glucose 67 mg/dL (70-105); Osmolality,Calculated 277 (280-300); Potassium 4.1 mEq/L (3.5-5.1); Sodium 135 mEq/L (136-145); eGFR For Non-African Americans > 60 (> 60)
[2017-12-21] MEDS: Budesonide/Formoterol 160/4.5 MDI IH SCH ×2 (07:52→20:04)
[2017-12-21] MEDS ORDERED: Saline Nasal Spray 44 ML BOTTLE NS PRN (10:30)
[2017-12-21] MEDS: Furosemide Oral Soln 40 MG/4 ML UDC GTUBE SCH ×2 (10:53→17:00)
[2017-12-21] MEDS: Spironolactone 25 MG TABLET GTUBE SCH (10:53)
[2017-12-21] MEDS: Methocarbamol 750 MG TABLET GTUBE SCH ×4 (10:53→21:36)
[2017-12-21] MEDS: *HR* HYDROcodone/Acet 5/325 mg TABLET GTUBE PRN (10:54)
[2017-12-21] MEDS: Aspirin 81 MG TAB.CHEW GTUBE SCH (10:54)
[2017-12-21] MEDS: Lactobacillus 1 EACH CAP.SPRINK GTUBE SCH (10:54)
[2017-12-21] MEDS: Isosorbide MONOnitrate (24 HR) 30 MG TAB.ER.24H PO SCH (10:54)
[2017-12-21] MEDS: Potassium Chloride Elixir 20 MEQ/15 ML UDC GTUBE SCH (10:54)
[2017-12-21] MEDS: Pregabalin 75 MG CAPSULE GTUBE SCH ×2 (10:55→21:36)
--- NOTE | 2017-12-21 11:16 | Internal Med Progress Note ---
Hospitalist Progress Note - Encounter Date of Encounter: 12/21/17 Time of Encounter: 09:00 - Subjective Interval History: Patient has increased cough. No fever. Remains disoriented at baseline. In no acute respiratory distress. No diarrhea per nursing record. - Exam Vitals: Temp Pulse Resp BP Pulse Ox 98.0 F 103 22 134/88 94 12/21/17 07:18 12/21/17 07:18 12/21/17 07:53 12/21/17 07:18 12/21/17 07:53 Exam: Pt is disoriented, in NAD HEENT: AC/NT, PERRL Neck: Supple, no LAD Lungs: Scattered rhonchi on left side Heart: S1S2, irregularly irregular, HR 90-110 Abd: Soft, NT, normal BS Ext: ROM wnl, mild b/l pedal edema improved Neuro: Disoriented as baseline. no focal deficit. - Assessment and Plan (1) Multifocal pneumonia Current Visit: Yes Status: Acute Assessment and Plan: Pt has elevated WBC and worsen cough. Consider re-aspiration as pt has high risk of aspiration, VS HAP. - Will restart iv abx, vanco and zosyn to cover HAP and aspiration. - Cont supportive treatment with O2, add mucomyst IH and facilate sputum expelling. Consult pulmonary rehab. - Remains high WBC, no fever overnight, in no acute respiratory distress with SpO2 92% in RA. (2) Severe sepsis Current Visit: Yes Status: Acute Assessment and Plan: Resolved. However, elevation of WBC and CXR shows worsen infiltrate makes pt in high risk of sepsis again. (3) Atrial fibrillation with RVR Current Visit: Yes Status: Chronic Assessment and Plan: Patient's HR was slightly get down Continue cardizem Cont metoprolol to 75 mg PO BID Pt is not on any anticoagulation b/f hx of intracranial hemorrhage. On ASA 81mg po daily. (4) CHF (congestive heart failure) Current Visit: Yes Status: Chronic Assessment and Plan: Patient's last EF was 55% Resume home medication of lasix 20 mg BID Resume home spironolactone (5) DM2 (diabetes mellitus, type 2) Current Visit: Yes Status: Chronic Assessment and Plan: On basal and SSI. Adjust dose according to Glu level. (6) Aspiration pneumonia Current Visit: Yes Status: Suspected Assessment and Plan: Possibly re-aspiration. Restart iv abx. (7) COPD (chronic obstructive pulmonary disease) Current Visit: Yes Status: Chronic Assessment and Plan: No wheezing, cont Neb and symbicort. (8) History of CVA (cerebrovascular accident) Current Visit: Yes Status: Acute Assessment and Plan: Continue aspirin. Pt has hx of both ischemic and hemorrhagic CVA. (9) HLD (hyperlipidemia) Current Visit: Yes Status: Acute Assessment and Plan: Continue atorvastatin (10) Stage III pressure ulcer Current Visit: Yes Status: Chronic Assessment and Plan: Wound care on consult (11) Hematemesis Current Visit: Yes Status: Resolved Assessment and Plan: Resolved Continue protonix - Time Spent with Patient Total time spent is greater than 50% in coordination of care (as documented) at patient's floor/unit and/or counseling patient: 40 min Greater than 35 minutes Plan of Care Discussed with: nurse Internal Medicine: Result - Labs CBC & Chem 7: 12/21/17 04:00 12/21/17 04:00 Labs: Short CBC 12/21/17 Range/Units 04:00 WBC 18.8 H (4.3-11.1) K/mcL Hgb 11.5 L (12.9-16.9) g/dL Hct 35.5 L (37.5-50.1) % Plt Count 370 (140-400) K/mcL Neutrophils # 12.8 H (1.6-8.9) K/mcL BMP 12/21/17 04:00 Sodium 135 L Potassium 4.1 Chloride 100 Carbon Dioxide 28 BUN 10 Creatinine 0.42 L Glucose 67 L Calcium 8.7 - ABG Interpretation ABG results: ABG ABG pH 7.42 pH Units (7.32-7.45) 12/13/17 05:38 ABG pCO2 44 mmHg (35-45) 12/13/17 05:38 ABG pO2 146 mmHg (85-104) H 12/13/17 05:38 ABG O2 Saturation 99 % (95-98) H 12/13/17 05:38 PT/INR, D-dimer PT 13.6 Seconds (9.4-12.1) H 12/13/17 00:25 - VTE Documentation of Mechanical Device: Intermittent pneumatic compression device Consult Discharge Plan - Plan [facility]errals: [facility] [Primary Care Provider] - (4) CHF (congestive heart failure) Qualifiers: Heart failure type: unspecified (5) DM2 (diabetes mellitus, type 2) Qualifiers: Diabetes mellitus [facility] insulin use: with [facility] use Diabetes mellitus complication status: with circulatory complication Diabetes mellitus complication detail: with other circulatory complications Qualified Code(s): E11.59 - Type 2 diabetes mellitus with other circulatory complications; Z79.4 - senior living (current) use of insulin (6) Aspiration pneumonia Qualifiers: Aspiration pneumonia type: due to vomit Laterality: bilateral Lung location : unspecified part of lung Qualified Code(s): J69.0 - Pneumonitis due to inhalation of food and vomit (7) COPD (chronic obstructive pulmonary disease) Qualifiers: COPD type: emphysema Emphysema type: unspecified Qualified Code(s): J43.9 - Emphysema, unspecified (9) HLD (hyperlipidemia) Qualifiers: Hyperlipidemia type: unspecified Qualified Code(s): E78.5 - Hyperlipidemia, unspecified (10) Stage III pressure ulcer Qualifiers: Pressure injury location: sacral region Qualified Code(s): L89.153 - Pressure ulcer of sacral region, stage 3
[2017-12-21] MEDS: Insulin DETEMIR 100 UNIT/ML X5UNITS SQ SCH ×2 (12:25→22:20)
[2017-12-21] MEDS: *HR* Metoprolol 5 MG/5 ML VIAL IVP PRN (12:34)
[2017-12-21] MEDS: Haloperidol Lactate 5 MG/ML VIAL IVP PRN (21:39)
--- NOTE | 2017-12-21 21:41 | Event Note ---
Date of Encounter: 12/21/17 Time of Encounter: 21:15 Approached by pts. nurse that pt. was sounding more wet on auscultation and concern was for possible aspiration. Pt. already admitted w/PNA dx and is currently on IVPB vancomycin and Zosyn. IVPB Levaquin 750 mg daily added for anaerobic coverage for possible aspiration pneumonia. Xopenex IH ordered due to patient's atrial fibrillation. Flutter valve added to help break up secretions. Patient is also incontinent and has stage III wound to the sacrum/ coccyx. Weber catheter ordered to prevent further skin breakdown. Wound care consult and daily wound care already in place. Nurse also expressed concern regarding pts. unequal pupils. On exam, pts. left pupil slightly larger than right but reactive to light. Pt. alert and conversational during exam. Pt. has left-sided residual weakness from previous CVA. Head CT dated 12/13/17 show remote right middle cerebral artery distribution infarct which was subacute on 10/07/17. No evidence of acute hemorrhage, mass, or extra-axial fluid collection. No acute intracranial abnormality. Patient will continue to be monitored closely.
[2017-12-21] MEDS: Levalbuterol Neb 1.25 MG/3 ML IH SCH (21:52)
[2017-12-21] MEDS: Levofloxacin 750 MG/150 ML 750 MG/150 ML BAG IVPB SCH (23:27)
[2017-12-22] MEDS: Piperacillin/Tazobactam 3.375 GM in 0.9 % Sodium Chloride Mini Bag 100 ML IVPB SCH ×3 (01:14→15:56)
[2017-12-22] MEDS: Insulin LISPRO 300 UNITS/3 ML VIAL SQ SCH ×4 (01:16→18:48)
[2017-12-22] MEDS: Levalbuterol Neb 1.25 MG/3 ML IH SCH ×3 (04:15→10:46)
[2017-12-22] MEDS: Levalbuterol Neb 0.63 MG/3 ML IH SCH ×5 (04:19→19:51)
[2017-12-22] MEDS: Acetylcysteine 10% 2 ML INHSOL IH SCH ×5 (04:20→19:52)
[2017-12-22] MEDS: Haloperidol Lactate 5 MG/ML VIAL IVP PRN ×2 (04:34→18:26)
[2017-12-22 06:44] LABS: Basophils # 0.1 K/mcL (0.0-0.2); Basophils % 0.4 %; Eosinophils # 0.4 K/mcL (0.0-0.6); Eosinophils % 2.5 %; Hematocrit 35.2 % (37.5-50.1); Hemoglobin 11.3 g/dL (12.9-16.9); Immature Granulocytes % 1.5 % (0-4); Lymphocytes # 2.5 K/mcL (0.6-4.6); Lymphocytes % 15.7 %; Mean Corpuscular HGB Conc 32.1 g/dL (31.6-35.5); Mean Corpuscular Hemoglobin 31.5 pg (28.0-33.3); Mean Corpuscular Volume 98.1 fL (83.0-100.0); Mean Platelet Volume 8.4 fL (9.4-12.4); Monocytes # 1.3 K/mcL (0.0-1.3); Monocytes % 8.4 %; Neutrophils # 11.2 K/mcL (1.6-8.9); Nucleated Red Blood Cells 0.2 /100 WBC (0); Platelet Count 342 K/mcL (140-400); Red Blood Count 3.59 M/mcL (4.19-5.50); Red Cell Distribution Width 17.6 % (11.5-14.5); Segmented Neutrophils % 71.5 %
[2017-12-22 06:59] LABS: BUN/Creatinine Ratio 29 (6-26); Blood Urea Nitrogen 14 mg/dL (8-23); Carbon Dioxide 27 mEq/L (23-29); Chloride 98 mEq/L (98-107); Glucose 136 mg/dL (70-105); Osmolality,Calculated 277 (280-300); Potassium 4.3 mEq/L (3.5-5.1); Sodium 132 mEq/L (136-145); eGFR For Non-African Americans > 60 (> 60)
[2017-12-22] MEDS: Budesonide/Formoterol 160/4.5 MDI IH SCH ×2 (07:54→19:55)
[2017-12-22] MEDS: Spironolactone 25 MG TABLET GTUBE SCH (10:05)
[2017-12-22] MEDS: Potassium Chloride Elixir 20 MEQ/15 ML UDC GTUBE SCH (10:05)
[2017-12-22] MEDS: Lactobacillus 1 EACH CAP.SPRINK GTUBE SCH (10:06)
[2017-12-22] MEDS: Furosemide Oral Soln 40 MG/4 ML UDC GTUBE SCH ×2 (10:06→15:56)
[2017-12-22] MEDS: Aspirin 81 MG TAB.CHEW GTUBE SCH (10:07)
[2017-12-22] MEDS: Isosorbide MONOnitrate (24 HR) 30 MG TAB.ER.24H PO SCH (10:07)
[2017-12-22] MEDS: Pregabalin 75 MG CAPSULE GTUBE SCH ×2 (10:07→22:50)
[2017-12-22] MEDS: Methocarbamol 750 MG TABLET GTUBE SCH ×4 (10:07→23:00)
[2017-12-22] MEDS: Insulin DETEMIR 100 UNIT/ML X5UNITS SQ SCH ×2 (10:12→23:00)
[2017-12-22] MEDS: LOVAZA 1 GM PO SCH (13:40)
--- NOTE | 2017-12-22 14:21 | Internal Med Progress Note ---
<Israel Galdamez - Last Filed: 12/22/17 14:16> Hospitalist Progress Note - Encounter Date of Encounter: 12/22/17 Time of Encounter: 10:45 - Subjective Interval History: 67 y/o male who [facility]. Patient started on levaquin yesterday due to suspicion for aspiration pneumonia. He is confused at baseline. No complaints today. No one at bedside today. - Exam Vitals: Temp Pulse Resp BP Pulse Ox 98.1 F 99 14 105/61 98 12/22/17 11:30 12/22/17 11:30 12/22/17 11:38 12/22/17 11:30 12/22/17 11:38 Exam: Gen: no acute distress, A&O x1 Heart: irregular Lungs: diffuse rhonchi Abdomen: soft, non-distended, PEG tube intact Extremities: no edema Vascular: pulses +2 in LE bilaterally Neuro: residual deficits in left UE and LE - Assessment and Plan (1) Multifocal pneumonia Current Visit: Yes Status: Acute Assessment and Plan: Patient had previously finished course of antibiotics, but CXR showed worsening pneumonia Concern for aspiration vs hospital acquired PNA Continue IV zosyn, vancomyin, and levaquin Pulmonary rehab consulted O2 saturation of 98% on room air Continue mucomyst to facilitate sputum expulsion Ordered sputum culture (2) Aspiration pneumonia Current Visit: Yes Status: Suspected Assessment and Plan: Worsening infiltrates on CXR Leukocytosis improving - 15.7 today Patient on IV Vacomycin, Zosyn, and Levaquin Continue mucomyst to facilitate sputum expulsion (3) Atrial fibrillation with RVR Current Visit: Yes Status: Chronic Assessment and Plan: Patient's HR in low 100s Increased dose of metorprolol to 100 mg BID Continue cardizem On aspirin 81 mg Patient not on anticoagulation due to Hx of intracranial hemorrhage (4) Severe sepsis Current Visit: Yes Status: Acute Assessment and Plan: Resolved, but worsening infiltrates on CXR and elevation of WBC makes patient concern for sepsis again (5) CHF (congestive heart failure) Current Visit: Yes Status: Chronic Assessment and Plan: Continue home lasix Continue home spironolactone Patient's last EF was 55% (6) DM2 (diabetes mellitus, type 2) Current Visit: Yes Status: Chronic Assessment and Plan: On basal and sliding scale insulin Will adjust based on glucose (7) Stage III pressure ulcer Current Visit: Yes Status: Chronic Assessment and Plan: Wound care on consult (8) COPD (chronic obstructive pulmonary disease) Current Visit: Yes Status: Chronic Assessment and Plan: Continue symbicort and nebulizers (9) History of CVA (cerebrovascular accident) Current Visit: Yes Status: Acute Assessment and Plan: Continue aspirin (10) HLD (hyperlipidemia) Current Visit: Yes Status: Acute Assessment and Plan: Continue atorvastatin (11) Hematemesis Current Visit: Yes Status: Resolved Assessment and Plan: Resolved DVT Prophylaxis: SCDs - Time Spent with Patient Total time spent is greater than 50% in coordination of care (as documented) at patient's floor/unit and/or counseling patient: less than 15 minutes Plan of Care Discussed with: patient Internal Medicine: Result - Labs CBC & Chem 7: 12/22/17 06:11 12/22/17 06:11 Labs: Short CBC 12/22/17 Range/Units 06:11 WBC 15.7 H (4.3-11.1) K/mcL Hgb 11.3 L (12.9-16.9) g/dL Hct 35.2 L (37.5-50.1) % Plt Count 342 (140-400) K/mcL Neutrophils # 11.2 H (1.6-8.9) K/mcL BMP 12/22/17 06:11 Sodium 132 L Potassium 4.3 Chloride 98 Carbon Dioxide 27 BUN 14 Creatinine 0.49 L Glucose 136 H Calcium 9.0 - ABG Interpretation ABG results: ABG ABG pH 7.42 pH Units (7.32-7.45) 12/13/17 05:38 ABG pCO2 44 mmHg (35-45) 12/13/17 05:38 ABG pO2 146 mmHg (85-104) H 12/13/17 05:38 ABG O2 Saturation 99 % (95-98) H 12/13/17 05:38 PT/INR, D-dimer PT 13.6 Seconds (9.4-12.1) H 12/13/17 00:25 - VTE Documentation of Mechanical Device: Intermittent pneumatic compression device Consult Discharge Plan - Plan [facility]errals: [facility] [Primary Care Provider] - <Vanessa Lan - Last Filed: 12/22/17 17:23> Hospitalist Progress Note - Encounter Date of Encounter: 12/22/17 - Exam Vitals: Temp Pulse Resp BP Pulse Ox 98.1 F 99 16 105/61 100 12/22/17 11:30 12/22/17 11:30 12/22/17 16:29 12/22/17 11:30 12/22/17 16:29 - Assessment and Plan (1) Multifocal pneumonia Current Visit: Yes Status: Acute (2) Severe sepsis Current Visit: Yes Status: Acute (3) Atrial fibrillation with RVR Current Visit: Yes Status: Chronic (4) CHF (congestive heart failure) Current Visit: Yes Status: Chronic (5) DM2 (diabetes mellitus, type 2) Current Visit: Yes Status: Chronic (6) Aspiration pneumonia Current Visit: Yes Status: Suspected (7) COPD (chronic obstructive pulmonary disease) Current Visit: Yes Status: Chronic (8) History of CVA (cerebrovascular accident) Current Visit: Yes Status: Acute (9) HLD (hyperlipidemia) Current Visit: Yes Status: Acute (10) Stage III pressure ulcer Current Visit: Yes Status: Chronic (11) Hematemesis Current Visit: Yes Status: Resolved - Time Spent with Patient Total time spent is greater than 50% in coordination of care (as documented) at patient's floor/unit and/or counseling patient: Internal Medicine: Result - Labs CBC & Chem 7: 12/22/17 06:11 12/22/17 06:11 Labs: Short CBC 12/22/17 Range/Units 06:11 WBC 15.7 H (4.3-11.1) K/mcL Hgb 11.3 L (12.9-16.9) g/dL Hct 35.2 L (37.5-50.1) % Plt Count 342 (140-400) K/mcL Neutrophils # 11.2 H (1.6-8.9) K/mcL BMP 12/22/17 06:11 Sodium 132 L Potassium 4.3 Chloride 98 Carbon Dioxide 27 BUN 14 Creatinine 0.49 L Glucose 136 H Calcium 9.0 - ABG Interpretation ABG results: ABG ABG pH 7.42 pH Units (7.32-7.45) 12/13/17 05:38 ABG pCO2 44 mmHg (35-45) 12/13/17 05:38 ABG pO2 146 mmHg (85-104) H 12/13/17 05:38 ABG O2 Saturation 99 % (95-98) H 12/13/17 05:38 PT/INR, D-dimer PT 13.6 Seconds (9.4-12.1) H 12/13/17 00:25 - Attending Attestation I have seen and examined this patient independently. I have discussed with the resident physician Dr. Galdamez regarding the management plan. Agree with the documentation. <Israel Galdamez - Last Filed: 12/22/17 14:16> (2) Aspiration pneumonia Qualifiers: Aspiration pneumonia type: due to vomit Laterality: bilateral Lung location : unspecified part of lung Qualified Code(s): J69.0 - Pneumonitis due to inhalation of food and vomit (5) CHF (congestive heart failure) Qualifiers: Heart failure type: unspecified (6) DM2 (diabetes mellitus, type 2) Qualifiers: Diabetes mellitus termite control representative insulin use: with termite control representative use Diabetes mellitus complication status: with circulatory complication Diabetes mellitus complication detail: with other circulatory complications Qualified Code(s): E11.59 - Type 2 diabetes mellitus with other circulatory complications; Z79.4 - intermediate manager (current) use of insulin (7) Stage III pressure ulcer Qualifiers: Pressure injury location: sacral region Qualified Code(s): L89.153 - Pressure ulcer of sacral region, stage 3 (8) COPD (chronic obstructive pulmonary disease) Qualifiers: COPD type: emphysema Emphysema type: unspecified Qualified Code(s): J43.9 - Emphysema, unspecified (10) HLD (hyperlipidemia) Qualifiers: Hyperlipidemia type: unspecified Qualified Code(s): E78.5 - Hyperlipidemia, unspecified <Vanessa Lan - Last Filed: 12/22/17 17:23> (4) CHF (congestive heart failure) Qualifiers: Heart failure type: unspecified (5) DM2 (diabetes mellitus, type 2) Qualifiers: Diabetes mellitus [facility] insulin use: with [facility] use Diabetes mellitus complication status: with circulatory complication Diabetes mellitus complication detail: with other circulatory complications Qualified Code(s): E11.59 - Type 2 diabetes mellitus with other circulatory complications; Z79.4 - [facility] (current) use of insulin (6) Aspiration pneumonia Qualifiers: Aspiration pneumonia type: due to vomit Laterality: bilateral Lung location : unspecified part of lung Qualified Code(s): J69.0 - Pneumonitis due to inhalation of food and vomit (7) COPD (chronic obstructive pulmonary disease) Qualifiers: COPD type: emphysema Emphysema type: unspecified Qualified Code(s): J43.9 - Emphysema, unspecified (9) HLD (hyperlipidemia) Qualifiers: Hyperlipidemia type: unspecified Qualified Code(s): E78.5 - Hyperlipidemia, unspecified (10) Stage III pressure ulcer Qualifiers: Pressure injury location: sacral region Qualified Code(s): L89.153 - Pressure ulcer of sacral region, stage 3
[2017-12-22] MEDS: *HR* HYDROcodone/Acet 5/325 mg TABLET GTUBE PRN (15:57)
[2017-12-22] MEDS: Levofloxacin 750 MG/150 ML 750 MG/150 ML BAG IVPB SCH (23:23)
[2017-12-23] MEDS: Acetylcysteine 10% 2 ML INHSOL IH SCH ×6 (00:27→19:51)
[2017-12-23] MEDS: Levalbuterol Neb 0.63 MG/3 ML IH SCH ×6 (00:27→19:51)
[2017-12-23] MEDS: Insulin LISPRO 300 UNITS/3 ML VIAL SQ SCH ×4 (00:34→18:22)
[2017-12-23] MEDS: Piperacillin/Tazobactam 3.375 GM in 0.9 % Sodium Chloride Mini Bag 100 ML IVPB SCH ×4 (00:35→23:01)
[2017-12-23 04:44] LABS: Basophils # 0.1 K/mcL (0.0-0.2); Basophils % 0.3 %; Eosinophils # 0.4 K/mcL (0.0-0.6); Eosinophils % 2.4 %; Hematocrit 34.9 % (37.5-50.1); Hemoglobin 11.4 g/dL (12.9-16.9); Immature Granulocytes % 1.2 % (0-4); Lymphocytes # 2.5 K/mcL (0.6-4.6); Lymphocytes % 16.1 %; Mean Corpuscular HGB Conc 32.7 g/dL (31.6-35.5); Mean Corpuscular Hemoglobin 31.9 pg (28.0-33.3); Mean Corpuscular Volume 97.8 fL (83.0-100.0); Mean Platelet Volume 8.3 fL (9.4-12.4); Monocytes # 1.4 K/mcL (0.0-1.3); Monocytes % 9.1 %; Neutrophils # 11.1 K/mcL (1.6-8.9); Nucleated Red Blood Cells 0.1 /100 WBC (0); Platelet Count 347 K/mcL (140-400); Red Blood Count 3.57 M/mcL (4.19-5.50); Red Cell Distribution Width 17.6 % (11.5-14.5); Segmented Neutrophils % 70.9 %
[2017-12-23 05:04] LABS: BUN/Creatinine Ratio 29 (6-26); Blood Urea Nitrogen 15 mg/dL (8-23); Calcium 8.8 mg/dL (8.6-10.3); Carbon Dioxide 28 mEq/L (23-29); Chloride 97 mEq/L (98-107); Glucose 212 mg/dL (70-105); Osmolality,Calculated 281 (280-300); Potassium 4.2 mEq/L (3.5-5.1); Sodium 132 mEq/L (136-145); eGFR For Non-African Americans > 60 (> 60)
[2017-12-23] MEDS: *HR* Metoprolol 5 MG/5 ML VIAL IVP PRN (06:50)
[2017-12-23] MEDS: Budesonide/Formoterol 160/4.5 MDI IH SCH ×2 (07:42→19:51)
[2017-12-23] MEDS: Lactobacillus 1 EACH CAP.SPRINK GTUBE SCH (10:11)
[2017-12-23] MEDS: Potassium Chloride Elixir 20 MEQ/15 ML UDC GTUBE SCH (10:11)
[2017-12-23] MEDS: Furosemide Oral Soln 40 MG/4 ML UDC GTUBE SCH ×2 (10:18→17:41)
[2017-12-23] MEDS: Isosorbide MONOnitrate (24 HR) 30 MG TAB.ER.24H PO SCH (10:19)
[2017-12-23] MEDS: Pregabalin 75 MG CAPSULE GTUBE SCH ×2 (10:19→23:02)
[2017-12-23] MEDS: Aspirin 81 MG TAB.CHEW GTUBE SCH (10:19)
[2017-12-23] MEDS: Spironolactone 25 MG TABLET GTUBE SCH (10:19)
[2017-12-23] MEDS: Methocarbamol 750 MG TABLET GTUBE SCH ×4 (10:19→23:01)
[2017-12-23] MEDS: LOVAZA 1 GM PO SCH (10:54)
[2017-12-23] MEDS: Insulin DETEMIR 100 UNIT/ML X5UNITS SQ SCH ×2 (11:00→23:02)
[2017-12-23] MEDS ORDERED: 0.9 % Sodium Chloride 500 ML IVC SCH (12:30)
[2017-12-23] MEDS ORDERED: 0.9 % Sodium Chloride 1,000 ML IVC SCH (13:30)
[2017-12-23] MEDS: *HR* HYDROcodone/Acet 5/325 mg TABLET GTUBE PRN (17:41)
--- NOTE | 2017-12-23 17:50 | Internal Med Progress Note ---
<Israel Galdamez - Last Filed: 12/23/17 17:48> Hospitalist Progress Note - Encounter Date of Encounter: 12/23/17 Time of Encounter: 10:30 - Subjective Interval History: 67 y/o male who presented to [facility]. Patient is confused at baseline. No complaints today. No one at bedside today. - Exam Vitals: Temp Pulse Resp BP Pulse Ox 97.6 F 72 16 109/67 97 12/23/17 16:11 12/23/17 16:11 12/23/17 16:11 12/23/17 16:11 12/23/17 16:11 Exam: Gen: no acute distress, A&O x1 Heart: irregular Lungs: diffuse rhonchi Abdomen: soft, non-distended, PEG tube intact Extremities: no edema Vascular: pulses +2 in LE bilaterally Neuro: residual deficits in left UE and LE - Assessment and Plan (1) Multifocal pneumonia Current Visit: Yes Status: Acute Assessment and Plan: Patient had previously finished course of antibiotics Concern for aspiration vs hospital acquired PNA Continue IV zosyn, vancomyin, and levaquin Pulmonary rehab consulted Continue mucomyst to facilitate sputum expulsion Ordered sputum culture CXR concerning for dehydration, will ask nutrition to trasnsition tube feeds from bolus to continuous and increase free water with tube feeds from 100 > 150 (2) Aspiration pneumonia Current Visit: Yes Status: Suspected Assessment and Plan: Leukocytosis no change - 15.6 today Patient on IV Vacomycin, Zosyn, and Levaquin Continue mucomyst to facilitate sputum expulsion Repeat CXR concerning for dehydration picture, will make tube feeds continuous and increase free water with tube feeds to 150 (3) Atrial fibrillation with RVR Current Visit: Yes Status: Chronic Assessment and Plan: Patient's HR in low 100s Increased dose of metorprolol to 100 mg BID Discontinued cardizem On aspirin 81 mg Patient not on anticoagulation due to Hx of intracranial hemorrhage (4) Severe sepsis Current Visit: Yes Status: Acute Assessment and Plan: Resolved, but infiltrates on CXR and elevation of WBC makes patient concern for sepsis again (5) CHF (congestive heart failure) Current Visit: Yes Status: Chronic Assessment and Plan: Continue home lasix Continue home spironolactone Patient's last EF was 55% (6) DM2 (diabetes mellitus, type 2) Current Visit: Yes Status: Chronic Assessment and Plan: On basal and sliding scale insulin Will adjust based on glucose (7) Stage III pressure ulcer Current Visit: Yes Status: Chronic Assessment and Plan: Wound care on consult (8) COPD (chronic obstructive pulmonary disease) Current Visit: Yes Status: Chronic Assessment and Plan: Continue symbicort and nebulizers (9) History of CVA (cerebrovascular accident) Current Visit: Yes Status: Acute Assessment and Plan: Continue aspirin (10) HLD (hyperlipidemia) Current Visit: Yes Status: Acute Assessment and Plan: Continue atorvastatin (11) Hematemesis Current Visit: Yes Status: Resolved Assessment and Plan: Resolved DVT Prophylaxis: SCDs - Time Spent with Patient Total time spent is greater than 50% in coordination of care (as documented) at patient's floor/unit and/or counseling patient: less than 15 minutes Plan of Care Discussed with: patient Internal Medicine: Result - Labs CBC & Chem 7: 12/23/17 04:23 12/23/17 04:23 Labs: Short CBC 12/23/17 Range/Units 04:23 WBC 15.6 H (4.3-11.1) K/mcL Hgb 11.4 L (12.9-16.9) g/dL Hct 34.9 L (37.5-50.1) % Plt Count 347 (140-400) K/mcL Neutrophils # 11.1 H (1.6-8.9) K/mcL BMP 12/23/17 04:23 Sodium 132 L Potassium 4.2 Chloride 97 L Carbon Dioxide 28 BUN 15 Creatinine 0.51 L Glucose 212 H Calcium 8.8 - ABG Interpretation ABG results: ABG ABG pH 7.42 pH Units (7.32-7.45) 12/13/17 05:38 ABG pCO2 44 mmHg (35-45) 12/13/17 05:38 ABG pO2 146 mmHg (85-104) H 12/13/17 05:38 ABG O2 Saturation 99 % (95-98) H 12/13/17 05:38 PT/INR, D-dimer PT 13.6 Seconds (9.4-12.1) H 12/13/17 00:25 - Impressions Impressions Chest X-Ray 12/23/17 12:14 IMPRESSION: 1. Interval decreased findings of congestive heart failure compared with prior study. 2. Calcific atherosclerosis aorta. 3. Cardiomegaly. 4. Status post CABG. D/ / Shailesh Keenan / Shailesh Keenan Interpreting Provider: Shailesh Keenan - VTE Documentation of Mechanical Device: Intermittent pneumatic compression device Consult Discharge Plan - Plan [facility]errals[facility]Primary Care Provider[facility] - <Jaime Israel - Last Filed: 12/23/17 18:44> Hospitalist Progress Note - Encounter Date of Encounter: 12/23/17 - Exam Vitals: Temp Pulse Resp BP Pulse Ox 97.6 F 90 16 109/67 97 12/23/17 18:14 12/23/17 18:14 12/23/17 18:14 12/23/17 18:14 12/23/17 18:14 - Assessment and Plan (1) Multifocal pneumonia Current Visit: Yes Status: Acute (2) Severe sepsis Current Visit: Yes Status: Acute (3) Atrial fibrillation with RVR Current Visit: Yes Status: Chronic (4) CHF (congestive heart failure) Current Visit: Yes Status: Chronic (5) DM2 (diabetes mellitus, type 2) Current Visit: Yes Status: Chronic (6) Aspiration pneumonia Current Visit: Yes Status: Suspected (7) COPD (chronic obstructive pulmonary disease) Current Visit: Yes Status: Chronic (8) History of CVA (cerebrovascular accident) Current Visit: Yes Status: Acute (9) HLD (hyperlipidemia) Current Visit: Yes Status: Acute (10) Stage III pressure ulcer Current Visit: Yes Status: Chronic (11) Hematemesis Current Visit: Yes Status: Resolved - Time Spent with Patient Total time spent is greater than 50% in coordination of care (as documented) at patient's floor/unit and/or counseling patient: Internal Medicine: Result - Labs CBC & Chem 7: 12/23/17 04:23 12/23/17 04:23 Labs: Short CBC 12/23/17 Range/Units 04:23 WBC 15.6 H (4.3-11.1) K/mcL Hgb 11.4 L (12.9-16.9) g/dL Hct 34.9 L (37.5-50.1) % Plt Count 347 (140-400) K/mcL Neutrophils # 11.1 H (1.6-8.9) K/mcL BMP 12/23/17 04:23 Sodium 132 L Potassium 4.2 Chloride 97 L Carbon Dioxide 28 BUN 15 Creatinine 0.51 L Glucose 212 H Calcium 8.8 - ABG Interpretation ABG results: ABG ABG pH 7.42 pH Units (7.32-7.45) 12/13/17 05:38 ABG pCO2 44 mmHg (35-45) 12/13/17 05:38 ABG pO2 146 mmHg (85-104) H 12/13/17 05:38 ABG O2 Saturation 99 % (95-98) H 12/13/17 05:38 PT/INR, D-dimer PT 13.6 Seconds (9.4-12.1) H 12/13/17 00:25 - Impressions Impressions Chest X-Ray 12/23/17 12:14 IMPRESSION: 1. Interval decreased findings of congestive heart failure compared with prior study. 2. Calcific atherosclerosis aorta. 3. Cardiomegaly. 4. Status post CABG. D/ / Shailesh Keenan / Shailesh Keenan Interpreting Provider: Shailesh Keenan - Attending Attestation I examined this patient and my medical decision-making was reviewed with the Resident Physician Dr. Galdamez. I agree with the documented findings, disposition and treatment plan as described except to the extent set forth below. Mr. Medel is a 67 y/o M admitted here for acute multi focal pneumonia mostly aspirational pneumonia and resp failure. He does have Afib with RVR now. Gen: A< A< O x 3 Chest: Diminished BS b/l Heart: S1S2+ Irregular HR, Afib a/p 1. Acute pneumonia mostly aspirational continue broad spec abx for now 2. Afib with RVR due to dehdyration and pneumonia IV hydration for now if HR wont improve will start Cardizem gtt 3. Dysphagia cont tube feedings will inc free water to 150cc Q6hr for now <Israel Galdamez - Last Filed: 12/23/17 17:48> (2) Aspiration pneumonia Qualifiers: Aspiration pneumonia type: due to vomit Laterality: bilateral Lung location : unspecified part of lung Qualified Code(s): J69.0 - Pneumonitis due to inhalation of food and vomit (5) CHF (congestive heart failure) Qualifiers: Heart failure type: unspecified (6) DM2 (diabetes mellitus, type 2) Qualifiers: Diabetes mellitus group home insulin use: with terminal worker use Diabetes mellitus complication status: with circulatory complication Diabetes mellitus complication detail: with other circulatory complications Qualified Code(s): E11.59 - Type 2 diabetes mellitus with other circulatory complications; Z79.4 - detention (current) use of insulin (7) Stage III pressure ulcer Qualifiers: Pressure injury location: sacral region Qualified Code(s): L89.153 - Pressure ulcer of sacral region, stage 3 (8) COPD (chronic obstructive pulmonary disease) Qualifiers: COPD type: emphysema Emphysema type: unspecified Qualified Code(s): J43.9 - Emphysema, unspecified (10) HLD (hyperlipidemia) Qualifiers: Hyperlipidemia type: unspecified Qualified Code(s): E78.5 - Hyperlipidemia, unspecified <Amna Israelbu - Last Filed: 12/23/17 18:44> (4) CHF (congestive heart failure) Qualifiers: Heart failure type: unspecified (5) DM2 (diabetes mellitus, type 2) Qualifiers: Diabetes mellitus terminal worker insulin use: with group home use Diabetes mellitus complication status: with circulatory complication Diabetes mellitus complication detail: with other circulatory complications Qualified Code(s): E11.59 - Type 2 diabetes mellitus with other circulatory complications; Z79.4 - detention (current) use of insulin (6) Aspiration pneumonia Qualifiers: Aspiration pneumonia type: due to vomit Laterality: bilateral Lung location : unspecified part of lung Qualified Code(s): J69.0 - Pneumonitis due to inhalation of food and vomit (7) COPD (chronic obstructive pulmonary disease) Qualifiers: COPD type: emphysema Emphysema type: unspecified Qualified Code(s): J43.9 - Emphysema, unspecified (9) HLD (hyperlipidemia) Qualifiers: Hyperlipidemia type: unspecified Qualified Code(s): E78.5 - Hyperlipidemia, unspecified (10) Stage III pressure ulcer Qualifiers: Pressure injury location: sacral region Qualified Code(s): L89.153 - Pressure ulcer of sacral region, stage 3
[2017-12-23] MEDS: Levofloxacin 750 MG/150 ML 750 MG/150 ML BAG IVPB SCH (23:00)
[2017-12-24] MEDS: Acetylcysteine 10% 2 ML INHSOL IH SCH ×6 (01:00→20:45)
[2017-12-24] MEDS: Levalbuterol Neb 0.63 MG/3 ML IH SCH ×6 (01:00→20:45)
[2017-12-24] MEDS: Insulin LISPRO 300 UNITS/3 ML VIAL SQ SCH ×5 (01:36→23:47)
[2017-12-24 06:15] LABS: Basophils # 0.1 K/mcL (0.0-0.2); Basophils % 0.3 %; Eosinophils # 0.4 K/mcL (0.0-0.6); Eosinophils % 2.4 %; Hematocrit 32.6 % (37.5-50.1); Hemoglobin 10.4 g/dL (12.9-16.9); Lymphocytes # 2.4 K/mcL (0.6-4.6); Lymphocytes % 15.4 %; Mean Corpuscular HGB Conc 31.9 g/dL (31.6-35.5); Mean Corpuscular Hemoglobin 30.9 pg (28.0-33.3); Mean Corpuscular Volume 96.7 fL (83.0-100.0); Mean Platelet Volume 8.2 fL (9.4-12.4); Monocytes # 1.3 K/mcL (0.0-1.3); Monocytes % 8.4 %; Neutrophils # 11.4 K/mcL (1.6-8.9); Nucleated Red Blood Cells 0.1 /100 WBC (0); Platelet Count 331 K/mcL (140-400); Red Blood Count 3.37 M/mcL (4.19-5.50); Red Cell Distribution Width 17.8 % (11.5-14.5); Segmented Neutrophils % 72.5 %
[2017-12-24 06:34] LABS: BUN/Creatinine Ratio 24 (6-26); Blood Urea Nitrogen 16 mg/dL (8-23); Calcium 8.9 mg/dL (8.6-10.3); Carbon Dioxide 28 mEq/L (23-29); Chloride 100 mEq/L (98-107); Glucose 202 mg/dL (70-105); Osmolality,Calculated 283 (280-300); Potassium 4.3 mEq/L (3.5-5.1); Sodium 133 mEq/L (136-145); eGFR For Non-African Americans > 60 (> 60)
[2017-12-24] MEDS: Budesonide/Formoterol 160/4.5 MDI IH SCH ×2 (07:51→20:46)
[2017-12-24] MEDS: Spironolactone 25 MG TABLET GTUBE SCH (09:34)
[2017-12-24] MEDS: Pregabalin 75 MG CAPSULE GTUBE SCH ×2 (09:35→20:30)
[2017-12-24] MEDS: Methocarbamol 750 MG TABLET GTUBE SCH ×4 (09:35→20:29)
[2017-12-24] MEDS: Isosorbide MONOnitrate (24 HR) 30 MG TAB.ER.24H PO SCH (09:35)
[2017-12-24] MEDS: Furosemide Oral Soln 40 MG/4 ML UDC GTUBE SCH ×2 (09:35→17:15)
[2017-12-24] MEDS: Lactobacillus 1 EACH CAP.SPRINK GTUBE SCH (09:35)
[2017-12-24] MEDS: Aspirin 81 MG TAB.CHEW GTUBE SCH (09:35)
[2017-12-24] MEDS: Potassium Chloride Elixir 20 MEQ/15 ML UDC GTUBE SCH (09:37)
[2017-12-24] MEDS: *HR* HYDROcodone/Acet 5/325 mg TABLET GTUBE PRN ×2 (09:40→17:13)
[2017-12-24] MEDS: Piperacillin/Tazobactam 3.375 GM in 0.9 % Sodium Chloride Mini Bag 100 ML IVPB SCH ×2 (09:41→15:39)
[2017-12-24] MEDS: LOVAZA 1 GM PO SCH (09:42)
[2017-12-24] MEDS: Insulin DETEMIR 100 UNIT/ML X5UNITS SQ SCH ×2 (09:44→22:38)
--- NOTE | 2017-12-24 11:49 | Internal Med Progress Note ---
<Israel Galdamez - Last Filed: 12/24/17 16:37> Hospitalist Progress Note - Encounter Date of Encounter: 12/24/17 Time of Encounter: 10:45 - Subjective Interval History: 67 y/o male who presented to [facility]. Patient is confused at baseline. No complaints today. No one at bedside today. - Exam Vitals: Temp Pulse Resp BP Pulse Ox 98.8 F 105 22 108/96 98 12/24/17 11:18 12/24/17 11:18 12/24/17 11:31 12/24/17 11:18 12/24/17 11:31 Exam: Gen: no acute distress, A&O x1 Heart: irregular Lungs: diffuse rhonchi Abdomen: soft, non-distended, PEG tube intact Extremities: no edema Vascular: pulses +2 in LE bilaterally Neuro: residual deficits in left UE and LE - Assessment and Plan (1) Multifocal pneumonia Current Visit: Yes Status: Acute Assessment and Plan: Patient had previously finished course of antibiotics Concern for aspiration vs hospital acquired PNA Continue IV zosyn and levaquin Discontinued IV vancomycin due to increased vancomycin trough Pulmonary rehab consulted - ordered chest compressions daily Continue mucomyst to facilitate sputum expulsion Ordered sputum culture CXR concerning for dehydration, increased tube feeds from bolus to continuous and increase free water with tube feeds from 100 > 150 (2) Aspiration pneumonia Current Visit: Yes Status: Suspected Assessment and Plan: Leukocytosis no change - 15.7 today Patient on IV Zosyn, and Levaquin Continue mucomyst to facilitate sputum expulsion Repeat CXR concerning for dehydration picture, will make tube feeds continuous and increase free water with tube feeds to 150 Chest percussion ordered daily to aid in sputum expulsion (3) Atrial fibrillation with RVR Current Visit: Yes Status: Chronic Assessment and Plan: Patient HR in 120s-130s today, will restart G-tube cardizem 30 mg Increased dose of metorprolol to 100 mg BID On aspirin 81 mg Patient not on anticoagulation due to Hx of intracranial hemorrhage (4) Severe sepsis Current Visit: Yes Status: Acute Assessment and Plan: Resolved, but infiltrates on CXR and elevation of WBC makes patient concern for sepsis again (5) CHF (congestive heart failure) Current Visit: Yes Status: Chronic Assessment and Plan: Continue home lasix Continue home spironolactone Patient's last EF was 55% (6) DM2 (diabetes mellitus, type 2) Current Visit: Yes Status: Chronic Assessment and Plan: On basal and sliding scale insulin Will adjust based on glucose (7) Stage III pressure ulcer Current Visit: Yes Status: Chronic Assessment and Plan: Wound care on consult (8) COPD (chronic obstructive pulmonary disease) Current Visit: Yes Status: Chronic Assessment and Plan: Continue symbicort and nebulizers (9) History of CVA (cerebrovascular accident) Current Visit: Yes Status: Acute Assessment and Plan: Continue aspirin (10) HLD (hyperlipidemia) Current Visit: Yes Status: Acute Assessment and Plan: Continue atorvastatin (11) Hematemesis Current Visit: Yes Status: Resolved Assessment and Plan: Resolved DVT Prophylaxis: SCDs - Time Spent with Patient Total time spent is greater than 50% in coordination of care (as documented) at patient's floor/unit and/or counseling patient: less than 15 minutes Plan of Care Discussed with: patient Internal Medicine: Result - Labs CBC & Chem 7: 12/24/17 04:00 12/24/17 04:00 Labs: Short CBC 12/24/17 Range/Units 04:00 WBC 15.7 H (4.3-11.1) K/mcL Hgb 10.4 L (12.9-16.9) g/dL Hct 32.6 L (37.5-50.1) % Plt Count 331 (140-400) K/mcL Neutrophils # 11.4 H (1.6-8.9) K/mcL BMP 12/24/17 04:00 Sodium 133 L Potassium 4.3 Chloride 100 Carbon Dioxide 28 BUN 16 Creatinine 0.68 L Glucose 202 H Calcium 8.9 - ABG Interpretation ABG results: ABG ABG pH 7.42 pH Units (7.32-7.45) 12/13/17 05:38 ABG pCO2 44 mmHg (35-45) 12/13/17 05:38 ABG pO2 146 mmHg (85-104) H 12/13/17 05:38 ABG O2 Saturation 99 % (95-98) H 12/13/17 05:38 PT/INR, D-dimer PT 13.6 Seconds (9.4-12.1) H 12/13/17 00:25 - Impressions Impressions Chest X-Ray 12/23/17 12:14 IMPRESSION: 1. Interval decreased findings of congestive heart failure compared with prior study. 2. Calcific atherosclerosis aorta. 3. Cardiomegaly. 4. Status post CABG. D/ / Shailesh Keenan / Shailesh Keenan Interpreting Provider: Shailesh Keenan - VTE Documentation of Mechanical Device: Intermittent pneumatic compression device Consult Discharge Plan - Plan [facility]errals: [facility] [Primary Care Provider[facility] - <Jaime Israel - Last Filed: 12/24/17 17:31> Hospitalist Progress Note - Encounter Date of Encounter: 12/24/17 - Exam Vitals: Temp Pulse Resp BP Pulse Ox 97.6 F 103 16 111/64 93 12/24/17 16:35 12/24/17 16:35 12/24/17 16:35 12/24/17 16:35 12/24/17 16:35 - Assessment and Plan (1) Multifocal pneumonia Current Visit: Yes Status: Acute (2) Severe sepsis Current Visit: Yes Status: Acute (3) Atrial fibrillation with RVR Current Visit: Yes Status: Chronic (4) CHF (congestive heart failure) Current Visit: Yes Status: Chronic (5) DM2 (diabetes mellitus, type 2) Current Visit: Yes Status: Chronic (6) Aspiration pneumonia Current Visit: Yes Status: Suspected (7) COPD (chronic obstructive pulmonary disease) Current Visit: Yes Status: Chronic (8) History of CVA (cerebrovascular accident) Current Visit: Yes Status: Acute (9) HLD (hyperlipidemia) Current Visit: Yes Status: Acute (10) Stage III pressure ulcer Current Visit: Yes Status: Chronic (11) Hematemesis Current Visit: Yes Status: Resolved - Time Spent with Patient Total time spent is greater than 50% in coordination of care (as documented) at patient's floor/unit and/or counseling patient: Internal Medicine: Result - Labs CBC & Chem 7: 12/24/17 04:00 12/24/17 04:00 Labs: Short CBC 12/24/17 Range/Units 04:00 WBC 15.7 H (4.3-11.1) K/mcL Hgb 10.4 L (12.9-16.9) g/dL Hct 32.6 L (37.5-50.1) % Plt Count 331 (140-400) K/mcL Neutrophils # 11.4 H (1.6-8.9) K/mcL BMP 12/24/17 04:00 Sodium 133 L Potassium 4.3 Chloride 100 Carbon Dioxide 28 BUN 16 Creatinine 0.68 L Glucose 202 H Calcium 8.9 - ABG Interpretation ABG results: ABG ABG pH 7.42 pH Units (7.32-7.45) 12/13/17 05:38 ABG pCO2 44 mmHg (35-45) 12/13/17 05:38 ABG pO2 146 mmHg (85-104) H 12/13/17 05:38 ABG O2 Saturation 99 % (95-98) H 12/13/17 05:38 PT/INR, D-dimer PT 13.6 Seconds (9.4-12.1) H 12/13/17 00:25 - Attending Attestation I examined this patient and my medical decision-making was reviewed with the Resident Physician Dr. Galdamez. I agree with the documented findings, disposition and treatment plan as described except to the extent set forth below. Mr. Medel is a 67 y/o M admitted here for acute multi focal pneumonia mostly aspirational pneumonia and resp failure. He does have Afib with RVR now. Gen: A, A, O x 3 Chest: Diminished BS b/l Heart: S1S2+ Irregular HR, Afib a/p 1. Acute pneumonia mostly aspirational continue broad spec abx for now d/c Vancomycin 2. Afib with RVR due to dehydration and pneumonia fairly controlled cont Metoprolol XL will inc Cardizem to 60mg Q6hr 3. Dysphagia changed to continuous tube feedings cont free water to 150cc Q6hr for now <Denice,Israel S - Last Filed: 12/24/17 16:37> (2) Aspiration pneumonia Qualifiers: Aspiration pneumonia type: due to vomit Laterality: bilateral Lung location : unspecified part of lung Qualified Code(s): J69.0 - Pneumonitis due to inhalation of food and vomit (5) CHF (congestive heart failure) Qualifiers: Heart failure type: unspecified (6) DM2 (diabetes mellitus, type 2) Qualifiers: Diabetes mellitus fdc insulin use: with fdc use Diabetes mellitus complication status: with circulatory complication Diabetes mellitus complication detail: with other circulatory complications Qualified Code(s): E11.59 - Type 2 diabetes mellitus with other circulatory complications; Z79.4 - half-way (current) use of insulin (7) Stage III pressure ulcer Qualifiers: Pressure injury location: sacral region Qualified Code(s): L89.153 - Pressure ulcer of sacral region, stage 3 (8) COPD (chronic obstructive pulmonary disease) Qualifiers: COPD type: emphysema Emphysema type: unspecified Qualified Code(s): J43.9 - Emphysema, unspecified (10) HLD (hyperlipidemia) Qualifiers: Hyperlipidemia type: unspecified Qualified Code(s): E78.5 - Hyperlipidemia, unspecified <Jaime Israel - Last Filed: 12/24/17 17:31> (4) CHF (congestive heart failure) Qualifiers: Heart failure type: unspecified (5) DM2 (diabetes mellitus, type 2) Qualifiers: Diabetes mellitus intermodal truck driver insulin use: with fdc use Diabetes mellitus complication status: with circulatory complication Diabetes mellitus complication detail: with other circulatory complications Qualified Code(s): E11.59 - Type 2 diabetes mellitus with other circulatory complications; Z79.4 - half-way (current) use of insulin (6) Aspiration pneumonia Qualifiers: Aspiration pneumonia type: due to vomit Laterality: bilateral Lung location : unspecified part of lung Qualified Code(s): J69.0 - Pneumonitis due to inhalation of food and vomit (7) COPD (chronic obstructive pulmonary disease) Qualifiers: COPD type: emphysema Emphysema type: unspecified Qualified Code(s): J43.9 - Emphysema, unspecified (9) HLD (hyperlipidemia) Qualifiers: Hyperlipidemia type: unspecified Qualified Code(s): E78.5 - Hyperlipidemia, unspecified (10) Stage III pressure ulcer Qualifiers: Pressure injury location: sacral region Qualified Code(s): L89.153 - Pressure ulcer of sacral region, stage 3
[2017-12-24] MEDS: Levofloxacin 750 MG/150 ML 750 MG/150 ML BAG IVPB SCH (22:22)
[2017-12-25] MEDS: Piperacillin/Tazobactam 3.375 GM in 0.9 % Sodium Chloride Mini Bag 100 ML IVPB SCH ×3 (00:02→16:24)
[2017-12-25] MEDS: Levalbuterol Neb 0.63 MG/3 ML IH SCH ×6 (00:40→20:38)
[2017-12-25] MEDS: Acetylcysteine 10% 2 ML INHSOL IH SCH ×6 (00:41→20:39)
[2017-12-25 04:48] LABS: Basophils # 0.1 K/mcL (0.0-0.2); Basophils % 0.4 %; Eosinophils # 0.3 K/mcL (0.0-0.6); Eosinophils % 1.6 %; Hematocrit 33.6 % (37.5-50.1); Hemoglobin 10.6 g/dL (12.9-16.9); Immature Granulocytes % 0.7 % (0-4); Lymphocytes # 2.7 K/mcL (0.6-4.6); Mean Corpuscular HGB Conc 31.5 g/dL (31.6-35.5); Mean Corpuscular Hemoglobin 30.6 pg (28.0-33.3); Mean Corpuscular Volume 97.1 fL (83.0-100.0); Mean Platelet Volume 8.5 fL (9.4-12.4); Monocytes # 1.4 K/mcL (0.0-1.3); Monocytes % 8.2 %; Neutrophils # 12.2 K/mcL (1.6-8.9); Platelet Count 361 K/mcL (140-400); Red Blood Count 3.46 M/mcL (4.19-5.50); Red Cell Distribution Width 17.5 % (11.5-14.5); Segmented Neutrophils % 73.1 %
[2017-12-25 05:00] LABS: BUN/Creatinine Ratio 24 (6-26); Blood Urea Nitrogen 17 mg/dL (8-23); Calcium 8.8 mg/dL (8.6-10.3); Carbon Dioxide 30 mEq/L (23-29); Chloride 98 mEq/L (98-107); Glucose 241 mg/dL (70-105); Osmolality,Calculated 287 (280-300); Potassium 3.8 mEq/L (3.5-5.1); Sodium 134 mEq/L (136-145); eGFR For Non-African Americans > 60 (> 60)
[2017-12-25] MEDS: Insulin LISPRO 300 UNITS/3 ML VIAL SQ SCH ×3 (05:34→18:22)
[2017-12-25] MEDS: Budesonide/Formoterol 160/4.5 MDI IH SCH ×2 (07:36→20:39)
--- NOTE | 2017-12-25 09:21 | Internal Med Progress Note ---
<Hai Lan - Last Filed: 12/25/17 15:15> Hospitalist Progress Note - Encounter Date of Encounter: 12/25/17 Time of Encounter: 09:20 - Subjective Interval History: Pt seen and examined. He states he "feels better" today. He states he has back pain which is suspected to be chronic for him. Denies any issues with breathing , chest pain, fever, nausea, vomiting. is not present today and told staff yesterday she likely would not be here today. - Exam Vitals: Temp Pulse Resp BP Pulse Ox 97.9 F 97 16 108/52 98 12/25/17 06:46 12/25/17 06:46 12/25/17 07:36 12/25/17 06:46 12/25/17 07:36 Exam: Gen: NAD, alert, awake HEENT: NCAT, EOMI, neck supple, no LAD Cardiac: RRR, no murmur Lungs: rales bilaterally Ext: no edema, erythema Neuro: appropriate affect, answers questions appropriately, at baseline mental status in setting of vascular dementia - Assessment and Plan (1) Multifocal pneumonia Current Visit: Yes Status: Acute Assessment and Plan: Patient had previously finished course of antibiotics Concern for aspiration vs hospital acquired PNA Continue IV zosyn and levaquin Discontinued IV vancomycin cultures are not positive for MRSA Pulmonary rehab consulted - ordered chest compressions daily Continue mucomyst to facilitate sputum expulsion Sputum culture pending (2) Aspiration pneumonia Current Visit: Yes Status: Suspected Assessment and Plan: Patient has chronic issues with aspiration given his baseline altered mental status Continue antibiotic treatment and supportive measures as above (3) Severe sepsis Current Visit: Yes Status: Acute Assessment and Plan: White count remains elevated 16 Secondary to pneumonia Has been afebrile and non-tachycardic today (4) Atrial fibrillation Current Visit: Yes Status: Chronic Assessment and Plan: Currently rate controlled on Cardizem and Metoprolol On aspirin 81 mg Patient not on anticoagulation due to Hx of intracranial hemorrhage (5) COPD (chronic obstructive pulmonary disease) Current Visit: Yes Status: Chronic Assessment and Plan: Not in exacerbation Currently not on oxygen supplemental oxygen and saturating well Continue breathing treatments and will place on oxygen if needed (6) History of CVA (cerebrovascular accident) Current Visit: Yes Status: Chronic Assessment and Plan: Causing history of vascular dementia, mental status is near baseline Continue ASA (7) HLD (hyperlipidemia) Current Visit: Yes Status: Chronic Assessment and Plan: Continue home Lipitor (8) Stage III pressure ulcer Current Visit: Yes Status: Chronic Assessment and Plan: Wound care consulted, appreciate recommendations - Time Spent with Patient Total time spent is greater than 50% in coordination of care (as documented) at patient's floor/unit and/or counseling patient: Internal Medicine: Result - Labs CBC & Chem 7: 12/25/17 04:33 12/25/17 04:33 Labs: Short CBC 12/25/17 Range/Units 04:33 WBC 16.6 H (4.3-11.1) K/mcL Hgb 10.6 L (12.9-16.9) g/dL Hct 33.6 L (37.5-50.1) % Plt Count 361 (140-400) K/mcL Neutrophils # 12.2 H (1.6-8.9) K/mcL BMP 12/25/17 04:33 Sodium 134 L Potassium 3.8 Chloride 98 Carbon Dioxide 30 H BUN 17 Creatinine 0.72 Glucose 241 H Calcium 8.8 - ABG Interpretation ABG results: ABG ABG pH 7.42 pH Units (7.32-7.45) 12/13/17 05:38 ABG pCO2 44 mmHg (35-45) 12/13/17 05:38 ABG pO2 146 mmHg (85-104) H 12/13/17 05:38 ABG O2 Saturation 99 % (95-98) H 12/13/17 05:38 PT/INR, D-dimer PT 13.6 Seconds (9.4-12.1) H 12/13/17 00:25 - VTE Documentation of Mechanical Device: Intermittent pneumatic compression device Consult Discharge Plan - Plan [facility]errals: [facility]Primary Care Provider[facility] - <Jaime Israel - Last Filed: 12/25/17 18:27> Hospitalist Progress Note - Encounter Date of Encounter: 12/25/17 - Exam Vitals: Temp Pulse Resp BP Pulse Ox 97.6 F 70 16 95/57 93 12/25/17 15:31 12/25/17 15:31 12/25/17 15:45 12/25/17 15:31 12/25/17 15:45 - Assessment and Plan (1) Multifocal pneumonia Current Visit: Yes Status: Acute (2) Severe sepsis Current Visit: Yes Status: Acute (3) Atrial fibrillation with RVR Current Visit: Yes Status: Chronic (4) CHF (congestive heart failure) Current Visit: Yes Status: Chronic (5) DM2 (diabetes mellitus, type 2) Current Visit: Yes Status: Chronic (6) Aspiration pneumonia Current Visit: Yes Status: Suspected (7) COPD (chronic obstructive pulmonary disease) Current Visit: Yes Status: Chronic (8) History of CVA (cerebrovascular accident) Current Visit: Yes Status: Chronic (9) HLD (hyperlipidemia) Current Visit: Yes Status: Chronic (10) Stage III pressure ulcer Current Visit: Yes Status: Chronic (11) Hematemesis Current Visit: Yes Status: Resolved - Time Spent with Patient Total time spent is greater than 50% in coordination of care (as documented) at patient's floor/unit and/or counseling patient: Internal Medicine: Result - Labs CBC & Chem 7: 12/25/17 04:33 12/25/17 04:33 Labs: Short CBC 12/25/17 Range/Units 04:33 WBC 16.6 H (4.3-11.1) K/mcL Hgb 10.6 L (12.9-16.9) g/dL Hct 33.6 L (37.5-50.1) % Plt Count 361 (140-400) K/mcL Neutrophils # 12.2 H (1.6-8.9) K/mcL BMP 12/25/17 04:33 Sodium 134 L Potassium 3.8 Chloride 98 Carbon Dioxide 30 H BUN 17 Creatinine 0.72 Glucose 241 H Calcium 8.8 - ABG Interpretation ABG results: ABG ABG pH 7.42 pH Units (7.32-7.45) 12/13/17 05:38 ABG pCO2 44 mmHg (35-45) 12/13/17 05:38 ABG pO2 146 mmHg (85-104) H 12/13/17 05:38 ABG O2 Saturation 99 % (95-98) H 12/13/17 05:38 PT/INR, D-dimer PT 13.6 Seconds (9.4-12.1) H 12/13/17 00:25 - Attending Attestation I examined this patient and my medical decision-making was reviewed with the Resident Physician Dr. Lan. I agree with the documented findings, disposition and treatment plan as described except to the extent set forth below. Mr. Medel is a 67 y/o M admitted here for acute multi focal pneumonia mostly aspirational pneumonia and resp failure. No events over night. Gen: A, A, O x 3 Chest: Diminished BS b/l Heart: S1S2+ Irregular HR, a/p 1. Acute pneumonia mostly aspirational continue broad spec abx for now d/c Vancomycin 2. Afib with RVR due to dehydration and pneumonia improved and stable with current regimen Metoprolol XL and Cardizem to 30mg Q6hr 3. Dysphagia changed to continuous tube feedings cont free water to 150cc Q6hr for now <Hai Lan - Last Filed: 12/25/17 15:15> (2) Aspiration pneumonia Qualifiers: Aspiration pneumonia type: due to vomit Laterality: bilateral Lung location : unspecified part of lung Qualified Code(s): J69.0 - Pneumonitis due to inhalation of food and vomit (4) Atrial fibrillation Qualifiers: Atrial fibrillation type: permanent Qualified Code(s): I48.2 - Chronic atrial fibrillation (5) COPD (chronic obstructive pulmonary disease) Qualifiers: COPD type: emphysema Emphysema type: unspecified Qualified Code(s): J43.9 - Emphysema, unspecified (7) HLD (hyperlipidemia) Qualifiers: Hyperlipidemia type: unspecified Qualified Code(s): E78.5 - Hyperlipidemia, unspecified (8) Stage III pressure ulcer Qualifiers: Pressure injury location: sacral region Qualified Code(s): L89.153 - Pressure ulcer of sacral region, stage 3 <Jaime Israel - Last Filed: 12/25/17 18:27> (4) CHF (congestive heart failure) Qualifiers: Heart failure type: unspecified (5) DM2 (diabetes mellitus, type 2) Qualifiers: Diabetes mellitus senior care insulin use: with senior care use Diabetes mellitus complication status: with circulatory complication Diabetes mellitus complication detail: with other circulatory complications Qualified Code(s): E11.59 - Type 2 diabetes mellitus with other circulatory complications; Z79.4 - MCFP (current) use of insulin (6) Aspiration pneumonia Qualifiers: Aspiration pneumonia type: due to vomit Laterality: bilateral Lung location : unspecified part of lung Qualified Code(s): J69.0 - Pneumonitis due to inhalation of food and vomit (7) COPD (chronic obstructive pulmonary disease) Qualifiers: COPD type: emphysema Emphysema type: unspecified Qualified Code(s): J43.9 - Emphysema, unspecified (9) HLD (hyperlipidemia) Qualifiers: Hyperlipidemia type: unspecified Qualified Code(s): E78.5 - Hyperlipidemia, unspecified (10) Stage III pressure ulcer Qualifiers: Pressure injury location: sacral region Qualified Code(s): L89.153 - Pressure ulcer of sacral region, stage 3
[2017-12-25] MEDS: Pregabalin 75 MG CAPSULE GTUBE SCH ×2 (09:36→21:58)
[2017-12-25] MEDS: Methocarbamol 750 MG TABLET GTUBE SCH ×4 (09:36→21:58)
[2017-12-25] MEDS: Lactobacillus 1 EACH CAP.SPRINK GTUBE SCH (09:37)
[2017-12-25] MEDS: Aspirin 81 MG TAB.CHEW GTUBE SCH (09:37)
[2017-12-25] MEDS: Spironolactone 25 MG TABLET GTUBE SCH (09:37)
[2017-12-25] MEDS: *HR* HYDROcodone/Acet 5/325 mg TABLET GTUBE PRN (09:37)
[2017-12-25] MEDS: Isosorbide MONOnitrate (24 HR) 30 MG TAB.ER.24H PO SCH (09:37)
[2017-12-25] MEDS: Furosemide Oral Soln 40 MG/4 ML UDC GTUBE SCH ×2 (09:37→16:19)
[2017-12-25] MEDS: Potassium Chloride Elixir 20 MEQ/15 ML UDC GTUBE SCH (09:39)
[2017-12-25] MEDS: Insulin DETEMIR 100 UNIT/ML X5UNITS SQ SCH ×2 (09:57→22:00)
[2017-12-25] MEDS ORDERED: Aminoglycoside Consult 1 EACH MC ONE (15:31)
[2017-12-25] MEDS: Levofloxacin 750 MG/150 ML 750 MG/150 ML BAG IVPB SCH (21:59)
[2017-12-26] MEDS: Piperacillin/Tazobactam 3.375 GM in 0.9 % Sodium Chloride Mini Bag 100 ML IVPB SCH ×2 (00:29→09:14)
[2017-12-26] MEDS: Levalbuterol Neb 0.63 MG/3 ML IH SCH ×4 (00:36→11:07)
[2017-12-26] MEDS: Acetylcysteine 10% 2 ML INHSOL IH SCH ×4 (00:37→11:03)
[2017-12-26] MEDS: Insulin LISPRO 300 UNITS/3 ML VIAL SQ SCH ×3 (00:41→12:46)
[2017-12-26 04:37] LABS: Basophils # 0.1 K/mcL (0.0-0.2); Basophils % 0.3 %; Eosinophils # 0.4 K/mcL (0.0-0.6); Eosinophils % 1.9 %; Hematocrit 34.8 % (37.5-50.1); Immature Granulocytes % 0.7 % (0-4); Lymphocytes # 2.5 K/mcL (0.6-4.6); Lymphocytes % 13.2 %; Mean Corpuscular HGB Conc 31.6 g/dL (31.6-35.5); Mean Corpuscular Hemoglobin 30.6 pg (28.0-33.3); Mean Corpuscular Volume 96.7 fL (83.0-100.0); Mean Platelet Volume 8.4 fL (9.4-12.4); Monocytes # 1.8 K/mcL (0.0-1.3); Monocytes % 9.3 %; Neutrophils # 14.1 K/mcL (1.6-8.9); Platelet Count 372 K/mcL (140-400); Red Cell Distribution Width 17.4 % (11.5-14.5); Segmented Neutrophils % 74.6 %
[2017-12-26 04:45] LABS: BUN/Creatinine Ratio 27 (6-26); Blood Urea Nitrogen 19 mg/dL (8-23); Calcium 8.8 mg/dL (8.6-10.3); Carbon Dioxide 28 mEq/L (23-29); Chloride 99 mEq/L (98-107); Glucose 120 mg/dL (70-105); Osmolality,Calculated 281 (280-300); Potassium 3.9 mEq/L (3.5-5.1); Sodium 134 mEq/L (136-145); eGFR For Non-African Americans > 60 (> 60)
--- NOTE | 2017-12-26 09:06 | Discharge Summary ---
<Hai Lan - Last Filed: 12/26/17 13:18> Orders not resulted at time of discharge: Pending orders 12/22/17 11:42 Culture,Sputum with Gram Stain [RM] Routine Date of Encounter: 12/26/17 Time of Encounter: 08:59 - Discharge Diagnosis (1) Multifocal pneumonia Priority: Primary Status: Acute (2) Aspiration pneumonia Priority: Secondary Status: Suspected Qualifiers: Aspiration pneumonia type: due to vomit Laterality: bilateral Lung location: unspecified part of lung Qualified Code(s): J69.0 - Pneumonitis due to inhalation of food and vomit (3) Severe sepsis Priority: Secondary Status: Acute (4) Atrial fibrillation Priority: Secondary Status: Chronic Qualifiers: Atrial fibrillation type: permanent Qualified Code(s): I48.2 - Chronic atrial fibrillation (5) COPD (chronic obstructive pulmonary disease) Priority: Secondary Status: Chronic Qualifiers: COPD type: emphysema Emphysema type: unspecified Qualified Code(s): J43.9 - Emphysema, unspecified (6) History of CVA (cerebrovascular accident) Priority: Secondary Status: Chronic (7) HLD (hyperlipidemia) Priority: Secondary Status: Chronic Qualifiers: Hyperlipidemia type: unspecified Qualified Code(s): E78.5 - Hyperlipidemia , unspecified (8) Stage III pressure ulcer Priority: Secondary Status: Chronic Qualifiers: Pressure injury location: sacral region Qualified Code(s): L89.153 - Pressure ulcer of sacral region, stage 3 Hospital course: Mr. Medel is a 67 year old male with a past medical history of atrial fibrillation on aspirin and Plavix, diastolic CHF, hypertension, diabetes mellitus type 2, CKD stage II, GERD, PEG tube, protein calorie malnutrition, chronic debilitation, and stage 3 sacral decubitus ulcer who was transferred from the ID secondary to upper GI bleed with hematemesis. His hemoglobin was 12.7. He could not protect his airway given his mental status and he was intubated in the ED. He was found to be septic secondary to multifocal pneumonia seen on CTA, and was started empirically on Vanc, Zosyn, Levaquin. Surgery was consulted and performed EGD which revealed inflammation of duodenum and pathology eventually revealed gastritis and duodenitis without evidence of dysplasia. He was given a total of 2 units of pRBCs during his stay and his Hb remained stable above 10 during his course. His blood cultures remained negative but he had elevated white count during the entire stay, likely secondary to pneumonia and remained on broad spectrum antibiotics. Given that he has vascular dementia and is altered at baseline, it was believed his pneumonia was secondary to aspiration. He did not have any complaints at day of discharge other than chronic back pain and will be going home on additional 4 days of Augmentin and Levaquin to cover for his pneumonia. He will be discharged back to the ID for long line teamster care. Discharge discussed with: patient, nurse - Time Spent with Patient Total time spent providing and/or coordinating discharge services: Greater than 30 minutes - Discharge Medications Prescriptions: Amoxicillin/Clavulanate [Augmentin] 875 mg PO BIDWM #8 tablet levoFLOXacin [Levaquin] 750 mg PO DAILY #4 tablet Home Medications: Omeprazole [PriLOSEC] 20 mg PO BID #0 02/15/15 [History] Insulin ASPART [NovoLOG] 25 unit SQ TIDAC 03/01/15 [History] Insulin Glargine,Hum.rec.anlog [Lantus Solostar] 60 unit SQ BID 03/01/15 [ History] Nitroglycerin [Nitrostat] 0.4 mg SL AD PRN 03/01/15 [History] Albuterol Sulfate [Albuterol Inhaler] 2 puff IH QID PRN 01/26/16 [History] Dextrose [Glucose] 12 gm PO DAILY PRN 01/26/16 [History] Fluticasone Propionate Nasal [Flonase] 50 mcg NS DAILY PRN 01/26/16 [History] Gemfibrozil [Lopid] 600 mg PO BID 01/26/16 [History] Lisinopril [Zestril] 10 mg PO BID 01/26/16 [History] Loratadine [Claritin] 10 mg PO DAILY 01/26/16 [History] Metformin HCl [Glucophage] 1,000 mg PO QPM 01/26/16 [History] Metformin HCl [Glucophage] 1,500 mg PO QAM 01/26/16 [History] [place]-3 Acid Ethyl Esters [Lovaza] 1 gm PO DAILY 01/26/16 [History] Potassium Chloride [K-Tab ER] 10 meq PO DAILY 01/26/16 [History] Sodium Chloride [Rhinaris] 2 spray NS TID PRN 09/09/16 [History] Budesonide/Formoterol 160/4.5 [Symbicort 160/4.5] 2 puff IH BID 04/18/17 [ History] Spironolactone [Aldactone] 50 mg PO DAILY 04/18/17 [History] Methocarbamol [Robaxin-750] 750 mg PO QID 04/19/17 [History] Aspirin 81 mg PO DAILY #30 tab.chew 04/22/17 [Rx] Furosemide [Lasix] 20 mg PO BID #60 tablet 04/22/17 [Rx] Isosorbide MONOnitrate (24 HR) [Imdur] 30 mg PO DAILY #30 tab.er.24h 04/22/17 [ Rx] Metoprolol [Lopressor] 50 mg PO BID #60 tablet 04/22/17 [Rx] Pregabalin [Lyrica] 75 mg PO BID 12/13/17 [History] Tamsulosin [Flomax] 0.4 mg PO DAILY 12/13/17 [History] Amoxicillin/Clavulanate [Augmentin] 875 mg PO BIDWM #8 tablet 12/26/17 [Rx] levoFLOXacin [Levaquin] 750 mg PO DAILY #4 tablet 12/26/17 [Rx] Allergies/Adverse Reactions: 3 Allergy/AdvReac Type Severity Reaction Status Date / Time acetaminophen Allergy See Verified 02/15/15 01:08 [From Tylenol-Codeine] Comments codeine Allergy See Verified 02/15/15 01:08 [From Tylenol-Codeine] Comments iodine Allergy Vomiting Verified 02/15/15 01:08 Nortriptyline Allergy See Verified 02/15/15 01:08 Comments shellfish derived Allergy Vomiting Verified 02/15/15 01:08 Date of admission: 12/13/17 05:09 [facility] care physician: [facility] Consults: 12/13/17 06:40 Consult to Wound Care [CONS] Routine Reason for Consult: Sacral diffuse ulcer Call Completed: No 12/13/17 09:20 Consult to Nutrition [CONS] Routine Comment: Consulting Provider: NUTRITION Reason for Dietary Consult: Other 12/15/17 10:52 consult to back order clerk [Consult to Nutrition] [CONS] Routine Comment: Consulting Provider: NUTRITION Reason for Dietary Consult: Tube Feed Start & Manage 12/20/17 08:15 Consult to Pulmonary Rehab [CONS] Routine Reason for Consult: Pt has difficult to expel sputum Call Completed: No 12/21/17 21:19 Consult to Respiratory Therapy [CONS] Routine Reason for Consult: Flutter valve Time Notified: 21:22 Call Completed: Yes 12/23/17 14:05 Consult to Invasive Line Access Team [CONS] Routine Reason for Consult: limited vascular access with multiple infusions Line Type: EPIV PICC line indications: Limited vascular access Discharging clinician: Hai Lan Anticipated date of discharge: 12/26/17 - Constitutional Vitals: Temp Pulse Resp BP Pulse Ox 98.6 F 84 16 91/80 100 12/26/17 07:04 12/26/17 07:04 12/26/17 07:47 12/26/17 07:04 12/26/17 07:47 General appearance: Present: A&O X 0, disheveled, pleasant - Head Head exam: Present: atraumatic, normocephalic - Eye Eye exam: Present: PERRL, conjuntiva pink, sclera anicteric - Neck Neck exam general surgery: Present: supple, trachea midline. Absent: lymphadenopathy - Respiratory Respiratory exam: Present: decreased breath sounds. Absent: accessory muscle use, rales, rhonchi, wheezes - Cardiovascular Cardiovascular exam: Present: irregular rhythm, +S1, +S2. Absent: diastolic murmur, gallop, rubs, systolic murmur - GI/Abdominal GI/Abdominal exam: Present: normal bowel sounds, soft, no peritoneal signs. Absent: distended, tenderness - Extremities Exam Extremities exam: Present: warm, radial pulses palpable and symmetrical. Absent : calf tenderness, cyanotic, pedal edema - Neurological Exam Neurological exam: Present: altered, no focal deficits. Absent: oriented X3, pronater drift, facial droop, speech deficit - Skin Skin exam: Present: dry, intact - Patient Status Disposition: Transfer LTC Condition: Serious Functional capacity at discharge: bed bound Overall status at discharge: patient is progressing back to baseline - Discharge Instructions Instructions: Aspiration Pneumonia (DC) Follow Up With: [facility] [Primary Care Provider] - Forms: ED Satisfaction Letter - Diet and Activity Activity: increase activity as tolerated Diet: advance to your usual diet - VTE Documentation of Mechanical Device: Intermittent pneumatic compression device <Jaime Israel - Last Filed: 12/26/17 18:22> Orders not resulted at time of discharge: Pending orders 12/22/17 11:42 Culture,Sputum with Gram Stain [RM] Routine Date of Encounter: 12/26/17 - Discharge Diagnosis (1) Multifocal pneumonia Status: Acute (2) Severe sepsis Status: Acute (3) Atrial fibrillation with RVR Status: Chronic (4) CHF (congestive heart failure) Status: Chronic Qualifiers: Heart failure type: unspecified (5) DM2 (diabetes mellitus, type 2) Status: Chronic Qualifiers: Diabetes mellitus care home insulin use: with care home use Diabetes mellitus complication status: with circulatory complication Diabetes mellitus complication detail: with other circulatory complications Qualified Code(s): E11.59 - Type 2 diabetes mellitus with other circulatory complications; Z79.4 - termination clerk (current) use of insulin (6) Aspiration pneumonia Status: Suspected Qualifiers: Aspiration pneumonia type: due to vomit Laterality: bilateral Lung location: unspecified part of lung Qualified Code(s): J69.0 - Pneumonitis due to inhalation of food and vomit (7) COPD (chronic obstructive pulmonary disease) Status: Chronic Qualifiers: COPD type: emphysema Emphysema type: unspecified Qualified Code(s): J43.9 - Emphysema, unspecified (8) History of CVA (cerebrovascular accident) Status: Chronic (9) HLD (hyperlipidemia) Status: Chronic Qualifiers: Hyperlipidemia type: unspecified Qualified Code(s): E78.5 - Hyperlipidemia , unspecified (10) Stage III pressure ulcer Status: Chronic Qualifiers: Pressure injury location: sacral region Qualified Code(s): L89.153 - Pressure ulcer of sacral region, stage 3 (11) Hematemesis Status: Resolved Hospital course: Mr. Medel is a 67 year old male - Time Spent with Patient Total time spent providing and/or coordinating discharge services: Date of admission: 12/13/17 05:09 [facility] care physician: [facility] Consults: 12/13/17 06:40 Consult to Wound Care [CONS] Routine Reason for Consult: Sacral diffuse ulcer Call Completed: No 12/13/17 09:20 Consult to Nutrition [CONS] Routine Comment: Consulting Provider: NUTRITION Reason for Dietary Consult: Other 12/15/17 10:52 consult to back order clerk [Consult to Nutrition] [CONS] Routine Comment: Consulting Provider: NUTRITION Reason for Dietary Consult: Tube Feed Start & Manage 08/04/18 08:15 Consult to Pulmonary Rehab [CONS] Routine Reason for Consult: Pt has difficult to expel sputum Call Completed: No 12/21/17 21:19 Consult to Respiratory Therapy [CONS] Routine Reason for Consult: Flutter valve Time Notified: 21:22 Call Completed: Yes 12/23/17 14:05 Consult to Invasive Line Access Team [CONS] Routine Reason for Consult: limited vascular access with multiple infusions Line Type: EPIV PICC line indications: Limited vascular access - Constitutional Vitals: Temp Pulse Resp BP Pulse Ox 98.6 F 104 18 112/66 98 12/26/17 07:04 12/26/17 11:13 12/26/17 11:13 12/26/17 11:13 12/26/17 11:13 - Attending Attestation I examined this patient and my medical decision-making was reviewed with the Resident Physician Dr. Lan. I agree with the documented findings, disposition and treatment plan as described except to the extent set forth below. Mr. Medel is a 67 y/o M admitted here for acute multi focal pneumonia mostly aspirational pneumonia and resp failure. No events over night. Gen: A, A, O x 3 Chest: Diminished BS b/l Heart: S1S2+ Afib a/p 1. Acute pneumonia mostly aspirational clinically improving.. Switch to PO abx Noticed WBC trended up, however he remained afebrile talked to Dr. Cruz ( [facility] from [facility] ), will d/c him to [facility] service. Talked to the pt's family at bed side and explained to them about current care 2. Afib with RVR due to dehydration and pneumonia improved and stable with current regimen Metoprolol XL and Cardizem to 30mg Q6hr 3. Dysphagia changed to continuous tube feedings cont free water to 150cc Q6hr for now
--- NOTE | 2017-12-26 09:09 | Physician Discharge Referral ---
[facility] Referral Info Transfer To: [facility] Provider in Charge: Dr. Israel Provider in Charge after Transfer: PCP Institutional Level of Care: Skilled - Diagnosis (1) Multifocal pneumonia Status: Acute (2) Aspiration pneumonia Status: Suspected (3) Severe sepsis Status: Acute (4) Atrial fibrillation Status: Chronic (5) COPD (chronic obstructive pulmonary disease) Status: Chronic (6) History of CVA (cerebrovascular accident) Status: Chronic (7) HLD (hyperlipidemia) Status: Chronic (8) Stage III pressure ulcer Status: Chronic - Transfer Medications Prescriptions: Amoxicillin/Clavulanate [Augmentin] 875 mg PO BIDWM #8 tablet levoFLOXacin [Levaquin] 750 mg PO DAILY #4 tablet Home Medications: Omeprazole [PriLOSEC] 20 mg PO BID #0 02/15/15 [History] Insulin ASPART [NovoLOG] 25 unit SQ TIDAC 03/01/15 [History] Insulin Glargine,Hum.rec.anlog [Lantus Solostar] 60 unit SQ BID 03/01/15 [ History] Nitroglycerin [Nitrostat] 0.4 mg SL AD PRN 03/01/15 [History] Albuterol Sulfate [Albuterol Inhaler] 2 puff IH QID PRN 01/26/16 [History] Dextrose [Glucose] 12 gm PO DAILY PRN 01/26/16 [History] Fluticasone Propionate Nasal [Flonase] 50 mcg NS DAILY PRN 01/26/16 [History] Gemfibrozil [Lopid] 600 mg PO BID 01/26/16 [History] Lisinopril [Zestril] 10 mg PO BID 01/26/16 [History] Loratadine [Claritin] 10 mg PO DAILY 01/26/16 [History] Metformin HCl [Glucophage] 1,000 mg PO QPM 01/26/16 [History] Metformin HCl [Glucophage] 1,500 mg PO QAM 01/26/16 [History] [place]-3 Acid Ethyl Esters [Lovaza] 1 gm PO DAILY 01/26/16 [History] Potassium Chloride [K-Tab ER] 10 meq PO DAILY 01/26/16 [History] Sodium Chloride [Rhinaris] 2 spray NS TID PRN 01/26/16 [History] Budesonide/Formoterol 160/4.5 [Symbicort 160/4.5] 2 puff IH BID 04/18/17 [ History] Spironolactone [Aldactone] 50 mg PO DAILY 04/18/17 [History] Methocarbamol [Robaxin-750] 750 mg PO QID 04/19/17 [History] Aspirin 81 mg PO DAILY #30 tab.chew 04/22/17 [Rx] Furosemide [Lasix] 20 mg PO BID #60 tablet 04/22/17 [Rx] Isosorbide MONOnitrate (24 HR) [Imdur] 30 mg PO DAILY #30 tab.er.24h 04/22/17 [ Rx] Metoprolol [Lopressor] 50 mg PO BID #60 tablet 04/22/17 [Rx] Pregabalin [Lyrica] 75 mg PO BID 12/13/17 [History] Tamsulosin [Flomax] 0.4 mg PO DAILY 12/13/17 [History] Amoxicillin/Clavulanate [Augmentin] 875 mg PO BIDWM #8 tablet 12/26/17 [Rx] levoFLOXacin [Levaquin] 750 mg PO DAILY #4 tablet 12/26/17 [Rx] Allergies/Adverse Reactions: 3 Allergy/AdvReac Type Severity Reaction Status Date / Time acetaminophen Allergy See Verified 02/15/15 01:08 [From Tylenol-Codeine] Comments codeine Allergy See Verified 02/15/15 01:08 [From Tylenol-Codeine] Comments iodine Allergy Vomiting Verified 02/15/15 01:08 Nortriptyline Allergy See Verified 02/15/15 01:08 Comments shellfish derived Allergy Vomiting Verified 02/15/15 01:08 - Respiratory Orders Oxygen / L per min Smoking Cessation: Smoking cessation has been advised. For more information, call the [place] Tobacco Quit Line at 3-797-ZIVJ-NOW. - Ancillary Orders May use pressure relief devices daily prn, May go on DEBBIE w/family/respon alliance party w /meds at nurse discretion PRN, May consult with Dentist, Watershed Manager, Chromosomal Disorders Counselor PRN - Advance Directives Power of Hardware Engineer: Yes Code Status: DNR-Arrest - Mobility Orders Bedrest - Rehabiliation Orders Rehab Potential: Fair Rehab Orders: Sternal Precautions, ROM Exercises, Evaluation for Physical Therapy, Evaluation for Occupational Therapy, Evaluation for Speech Therapy - Treatments Skin tear care topically daily PRN per policy, May check for fecal impaction rectally daily PRN, Fleet enema rectally every other day PRN cleansing purposes CERTIFICATION: I certify that the transfer of the above named patient to an Extended Care Facility is necessary for the continuing treatment of the diagnosis listed. The above information is true and accurate reflection of patient's current condition. Confidential - Redisclosure prohibited without a patient's written consent.
[2017-12-26] MEDS: Potassium Chloride Elixir 20 MEQ/15 ML UDC GTUBE SCH (09:16)
[2017-12-26] MEDS: Furosemide Oral Soln 40 MG/4 ML UDC GTUBE SCH (09:16)
[2017-12-26] MEDS: Insulin DETEMIR 100 UNIT/ML X5UNITS SQ SCH (09:16)
[2017-12-26] MEDS: Spironolactone 25 MG TABLET GTUBE SCH (09:17)
[2017-12-26] MEDS: Aspirin 81 MG TAB.CHEW GTUBE SCH (09:17)
[2017-12-26] MEDS: Methocarbamol 750 MG TABLET GTUBE SCH ×2 (09:17→12:43)
[2017-12-26] MEDS: Lactobacillus 1 EACH CAP.SPRINK GTUBE SCH (09:17)
[2017-12-26] MEDS: Pregabalin 75 MG CAPSULE GTUBE SCH (09:17)
[2017-12-26] MEDS: Isosorbide MONOnitrate (24 HR) 30 MG TAB.ER.24H PO SCH (09:26)
[2017-12-26] MEDS: Budesonide/Formoterol 160/4.5 MDI IH SCH (11:03)
[2017-12-26 11:14] VITALS: BP 112/66
[2017-12-26] MEDS: *HR* HYDROcodone/Acet 5/325 mg TABLET GTUBE PRN (14:02)
== END 2017-12-26 15:32 | DRG 871 ==
LOC: EMEROO 00:02 → ICNU 05:09 → SUATTDRO 05:09 → ICNU 07:45 → 2NENU 12-15 12:59
PROVIDERS: ADMIT Family Medicine; ATTEND Family Medicine
PROC: ENDOEBX (2017-12-13 11:00)